=== PATIENT | female | born 1985 | race Caucasian/White ===

== ENCOUNTER 2021-01-28 14:18 | Outpatient (CLI) | payer OTHER, SELFPAY ==
--- NOTE | ~2021-01-28 | US_ITS ---
EXAMINATION: US axilla LT HISTORY: Unspecified lump in the axillary tail of the left breast TECHNIQUE: Limited ultrasound performed in the left axilla in the area of clinical concern FINDINGS: There is no evidence of focal abnormal cystic or solid mass in the vicinity of the palpable abnormality of concern. IMPRESSION: No specific sonographic correlate is identified for the reported palpable abnormality of concern. Fur ther evaluation at this time should be based on clinical assessment. Continued follow-up physical exa mination is recommended. BI-RADS Category 1: Negative Reviewed, dictated and finalized at location A. IMPRESSION: No specific sonographic correlate is identified for the reported palpable abnor mality of concern. Further evaluation at this time should be based on clinical assessment. Continued follow-up physical examination is recommended. BI-RADS Category 1: Negative
== END 2021-01-28 14:19 ==
PROVIDERS: PCP Family Medicine; Visit Provider Physician Assistant Medical
DX: N63.32 Unspecified lump in axillary tail of the left breast (principal)
CPT/HCPCS: 76882

== ENCOUNTER 2021-05-07 07:36 | Outpatient (CLI) | payer OTHER, SELFPAY ==
--- NOTE | ~2021-05-07 | MR_ITS ---
EXAMINATION: MR lumbar spine wo/w con DATE: 05/07/2021 09:24 INDICATION: Lumbar radiculopathy. TECHNIQUE: Magnetic resonance imaging (MRI) of the lumbar spine was performed without and with 14 mL MultiHance intravenous contrast. Sequences included sagittal T2-weighted FSE, sagittal T2-weighted FS FSE, and sagittal and axial T1-weighted FSE. Postcontrast sequences included axial T2-weighted FSE a nd axial and sagittal T1-weighted FS FSE. COMPARISON: None FINDINGS: There is 5 degrees dextrocurvature of thoracolumbar spine. Vertebral body heights and inter vertebral disc heights are normal. The distal spinal cord signal intensity is normal. The conus medul ayanna is at L1. 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 The following disc levels are specifically discussed: L1-L2: The disc does not extend beyond the endplate margin. There is no facet joint osteoarthritis. T here is no neural foraminal stenosis. There is no central canal stenosis. L2-L3: The disc does not extend beyond the endplate margin. There is mild bilateral facet joint osteo arthritis. There is no neural foraminal stenosis. There is no central canal stenosis. L3-L4: The disc does not extend beyond the endplate margin. There is no facet joint osteoarthritis. T here is no neural foraminal stenosis. There is no central canal stenosis. L4-L5: The disc does not extend beyond the endplate margin. There is mild bilateral facet joint osteo arthritis. There is no neural foraminal stenosis. There is no central canal stenosis. L5-S1: There is a central protrusion. There is mild bilateral facet joint osteoarthritis. There is mi ld left neural foraminal stenosis. There is mild central canal stenosis. IMPRESSION: 1. Mild lumbar spondylosis. Reviewed, dictated and finalized at location A. IMPRESSION: 1. Mild lumbar spondylosis.
[2021-05-07 08:41] LABS: Estimated Glomerular Filt Rate > 60
== END 2021-05-07 07:37 | disposition home or self-care (01) ==
PROVIDERS: PCP Family Medicine; Visit Provider Family Medicine
DX: M47.27 Other spondylosis with radiculopathy, lumbosacral region (principal); M48.07 Spinal stenosis, lumbosacral region
CPT/HCPCS: 72158; A9577

== ENCOUNTER 2021-07-27 08:40 | Outpatient (CLI) | payer OTHER, SELFPAY ==
--- NOTE | ~2021-07-27 | XR_ITS ---
EXAMINATION: XR sacroiliac joints min 3V INDICATION: Sacroiliitis not elsewhere specified TECHNIQUE: Three views of the sacroiliac joints are obtained. COMPARISON: None available FINDINGS: The sacroiliac joints are unremarkable without evidence of erosion or sclerosis. Bone align ment is normal. There is no fracture. IMPRESSION: 1. No acute osseous abnormality. Reviewed, dictated and finalized at location A.
--- NOTE | ~2021-07-27 | XR_ITS ---
EXAMINATION: XR hip BI 2V w AP pelvis DATE: 07/27/2021 09:03 INDICATION: Hip pain TECHNIQUE: AP view the pelvis and two views of each hip were obtained. COMPARISON: None. FINDINGS: Bone alignment is normal. There is no fracture. The soft tissues are unremarkable IMPRESSION: 1. No acute osseous abnormality. Reviewed, dictated and finalized at location A.
== END 2021-07-27 08:41 | disposition home or self-care (01) ==
LOC: ANHIMG 08:43
PROVIDERS: PCP Family Medicine; Visit Provider Physician Assistant Medical
DX: M25.551 Pain in right hip (principal); M25.552 Pain in left hip; M46.1 Sacroiliitis, not elsewhere classified
CPT/HCPCS: 72202; 73521

== ENCOUNTER → 2021-08-06 09:24 | Outpatient (CLI) | payer OTHER, SELFPAY ==
--- NOTE | ~2021-08-06 | US_ITS ---
EXAMINATION: US renal BI DATE: 08/06/2021 10:17 INDICATION: Renal cyst TECHNIQUE: Multiple ultrasound grayscale images of the kidneys were obtained. COMPARISON: None. FINDINGS: The right kidney measures 8.7 x 5.3 x 5.0 cm. The left kidney measures 10.0 x 5.4 x 5.7 cm. The kidne ys demonstrate normal echogenicity. 1.7 cm exophytic anechoic cyst at the medial left kidney. 8 mm ex ophytic hypoechoic lesion at the lower pole of the left kidney which is too small to definitively lata racterize. There is no hydronephrosis in either kidney. No stones identified. The bladder is normal. IMPRESSION: 1. 1.7 cm anechoic left renal cyst with second 8 mm hypoechoic lesion at the left kidney which could represent an additional cyst but which is too small to definitively characterize. Reviewed, dictated and finalized at location A. IMPRESSION: 1. 1.7 cm anechoic left renal cyst with second 8 mm hypoechoic lesion at the l eft kidney which could represent an additional cyst but which is too small to d efinitively characterize.
== END ==
PROVIDERS: PCP Family Medicine; Visit Provider Physician Assistant Medical
DX: N28.1 Cyst of kidney, acquired (principal); N28.9 Disorder of kidney and ureter, unspecified
CPT/HCPCS: 76775

== ENCOUNTER 2022-08-02 15:34 | Outpatient (CLI) | payer OTHER, SELFPAY ==
[2022-08-02 16:33] LABS: Free T4 Free Thyroxine 1.08 ng/mL (0.78-2.19)
[2022-08-02 16:39] LABS: Thyroid Stimulating Hormone 0.848 uIU/mL (0.465-4.680)
[2022-08-05 05:16] LABS: Thyroid Peroxidase Antibodies 1 IU/mL (<9)
[2022-08-06 08:40] LABS: Progesterone 0.2 ng/mL (***)
[2022-08-08 04:17] LABS: Estradiol, Ultrasensitive 2 pg/mL
== END 2022-08-02 15:35 | disposition home or self-care (01) ==
LOC: ANHLAB 15:40
PROVIDERS: PCP Family Medicine; Visit Provider Obstetrics & Gynecology
DX: R23.2 Flushing (principal)
CPT/HCPCS: 36415; 82670; 84144; 84439; 84443; 86376

== ENCOUNTER 2024-03-04 15:12 | Outpatient (CLI) | payer OTHER, SELFPAY ==
--- NOTE | ~2024-03-04 | MM_ITS ---
EXAMINATION: MM screening dayna BI w khushbu HISTORY: Screening mammogram TECHNIQUE: Craniocaudal and mediolateral oblique 3-D tomosynthesis images were obtained and synthetic 2-D images were generated. CAD analysis was submitted and interpreted. COMPARISON: 04/22/2019 complete right breast ultrasound BREAST PARENCHYMAL COMPOSITION: The breasts are heterogeneously dense, which may obscure small masses . FINDINGS: Suggestion of bilateral breast masses IMPRESSION: 1. Possible bilateral breast masses 2. Bilateral diagnostic mammography and bilateral breast ultrasound are recommended BI-RADS Category 0: Incomplete: Needs additional imaging evaluation. Reviewed, dictated and finalized at location A. IMPRESSION: 1. Possible bilateral breast masses 2. Bilateral diagnostic mammography and bilateral breast ultrasound are recomme nded BI-RADS Category 0: Incomplete: Needs additional imaging evaluation.
== END 2024-03-04 15:13 | disposition home or self-care (01) ==
PROVIDERS: PCP Family Medicine; Visit Provider Obstetrics & Gynecology
DX: Z12.31 Encounter for screening mammogram for malignant neoplasm of breast (principal); R92.8 Other abnormal and inconclusive findings on diagnostic imaging of breast
CPT/HCPCS: 77063; 77067

== ENCOUNTER 2024-03-18 09:00 | Outpatient (CLI) | payer OTHER, SELFPAY ==
--- NOTE | ~2024-03-18 | MMUS_ITS ---
EXAMINATION: MM diagnostic dayna BI w khushbu, US breast BI complete HISTORY: Possible bilateral breast masses reported on March 04, 2024 screening mammogram examination. Heterogeneously dense breasts. TECHNIQUE: Additional 3-D tomosynthesis images of both breasts were performed and synthetic 2-D image s were generated. CAD analysis was submitted and interpreted. High resolution complete bilateral [facility] ultrasound examination including all 4 quadrants and subareolar area of each breast was performed. COMPARISON: March 04, 2024 bilateral screening mammogram April 22, 2019 complete right breast ultrasound examination FINDINGS: MAMMOGRAPHIC FINDINGS: Possible approximately 14 mm circumscribed mass suggested in superolateral right subareolar area. No suspicious mass, architectural distortion, malignant calcification, skin thickening or retraction of either breast is noted otherwise. ULTRASOUND: Right breast: 11 x 20 mm well-circumscribed sonolucency consistent with simple cyst with through transmission poste rior enhancement. There is a contiguous 4.7 x 5 mm simple cyst. 11 x 9 x 10 mm cyst right subareolar benign-appearing complicated cyst with low intensity internal ec hoes, through-transmission and posterior enhancement. No suspicious mass or shadowing of the right breast is detected. Left breast: No suspicious mass or shadowing of the left breast is detected. IMPRESSION: 1. Benign right subareolar cysts; no mammographic or sonographic evidence of malignancy 2. Routine annual mammographic screening is recommended BI-RADS Category 2: Benign finding(s). Reviewed, dictated and finalized at location A. IMPRESSION: 1. Benign right subareolar cysts; no mammographic or sonographic evidence of ma lignancy 2. Routine annual mammographic screening is recommended BI-RADS Category 2: Benign finding(s).
== END 2024-03-18 09:30 | disposition home or self-care (01) ==
LOC: ANHIMG 03-19 08:46
PROVIDERS: PCP Family Medicine; Visit Provider Obstetrics & Gynecology
DX: R92.333 Mammographic heterogeneous density, bilateral breasts (principal); N60.01 Solitary cyst of right breast; R92.8 Other abnormal and inconclusive findings on diagnostic imaging of breast
CPT/HCPCS: 76641; 77062; 77066; G0279

== ENCOUNTER 2024-08-31 10:17 | Outpatient (CLI) | payer OTHER, SELFPAY ==
--- NOTE | ~2024-08-31 | US_ITS ---
EXAMINATION: US transvaginal DATE: 08/31/2024 10:49 INDICATION: Pelvic pain. TECHNIQUE: Multiple transvaginal sonographic images of the pelvis were obtained. COMPARISON: Ultrasound 11/01/2023 FINDINGS: The uterus measures 8.1 x 4.2 x 5.4 cm. There is no free fluid in the pelvis. The endometrial complex measures 6 mm in thickness. There is a 14 mm submucosal fibroid. The right ovary measures 3.7 x 2.7 x 3.3 cm. The left ovary measures 2.9 x 1.5 x 2.9 cm. There is normal vascular flow in the ovaries. IMPRESSION: 1. Uterine fibroid. Reviewed, dictated and finalized at location A. IMPRESSION: 1. Uterine fibroid.
== END 2024-08-31 10:18 | disposition home or self-care (01) ==
LOC: MICIMG 10:18
PROVIDERS: PCP Family Medicine; Visit Provider Obstetrics & Gynecology Gynecology
DX: D25.9 Leiomyoma of uterus, unspecified (principal)
CPT/HCPCS: 76830

== ENCOUNTER 2024-11-01 08:36 | Emergency (ER) | payer OTHER, SELFPAY ==
--- NOTE | ~2024-11-01 | XR_ITS ---
EXAMINATION: XR chest 2V DATE: 11/01/2024 09:13 INDICATION: Cough with back pain TECHNIQUE: PA and lateral views of the chest were obtained. COMPARISON: None FINDINGS: The lungs are clear with no focal airspace opacities, pulmonary edema, pleural effusion or pneumothor ax. The cardiomediastinal silhouette is normal. Moderate thoracic spondylosis with fusion across the anterior margin of the lower thoracic disc spaces. IMPRESSION: 1. No acute cardiopulmonary disease. Reviewed, dictated and finalized at location B. ICAL RN MANAGER
[2024-11-01 08:42] VITALS: BP 125/75; PULSE 94; RESP 16; TEMP 36.8; O2SAT 98
--- NOTE | 2024-11-01 08:51 | ED_ITS ---
HPI - URI/Sore Throat General Chief Complaint: Upper Respiratory Infection Stated Complaint: Cough/Chest Pain into Back/Leg Pain Time Seen by Provider: 11/01/24 08:52 Source: patient Mode of arrival: ambulatory Limitations: no limitations History of Present Illness HPI Narrative: 39 y/o female presented for c/o painful cough x5 days. States the cough is dry, and reports aches to left upper back and chest when coughing. Feels sob and chest tightness with exertion. Also reports pain in the legs. Denies wheezing, n/v/d/f/c. Taking Mucinex and ibuprofen without relief. Related Data Allergies Allergy/AdvReac Type Severity Reaction Status Date / Time meperidine Allergy Mild vomit Verified 11/01/24 09:02 erythromycin base Allergy Unknown unknown Verified 11/01/24 09:02 vilazodone AdvReac Intermediate Agitated Verified 11/01/24 09:02 venlafaxine (From Effexor) AdvReac Mild insomnia Verified 11/01/24 09:02 Review of Systems Review of Systems: CONSTITUTIONAL: reports body aches, Denies fever, chills, or sweats. EYES: Denies visual changes, redness, or discharge. ENT: Denies rhinorrhea, congestion, sore throat, or otalgia. CARDIOVASCULAR: Denies chest pain, palpitations, or edema. RESPIRATORY: Reports cough, sob, denies wheezing. GASTROINTESTINAL: Denies abdominal pain, nausea, vomiting, or diarrhea. SKIN: Denies rash MUSCULOSKELETAL: reports back pain, myalgia. NEUROLOGIC: Denies headache All systems reviewed & are unremarkable except as noted in HPI and below PMFSH Past Medical History Medical History GERD (gastroesophageal reflux disease) Obesity (BMI 30.0-34.9) Family history of heart disease in female family member before age 65 Renal cyst Left Myositis ossificans Rib injury COVID-19 Hematoma (~07/2020) Surgical History Surgical History History of colposcopy Colposcopy - TRUPTI II/III 2008 History of loop electrosurgical excision procedure (LEEP) 2008 Family History Family History Mother Acute myocardial infarction Other Heart disease Atrial fibrillation Depression Psychiatric problem Grandparent Diabetes mellitus Cerebrovascular accident Alzheimer disease Breast cancer Social History Social History Social History: Caffeine-daily Smoking status: Former smoker Smoking end date: 11/06/17 Alcohol intake: current Alcohol use details: rarely Substance use: never Substance use type: does not use Lack of Transportation: No Lack of Food: Never True Current Housing: I Have Housing Concerned About Future Housing: No Difficulty Paying Gas/Electric Bills: No Difficulty Paying for Meds: No Currently Unemployed: No Education: Associate Degree Difficulty w/ Childcare or Family Care: No Living arrangements: with family Occupation/Education: occupation Gender identity (if verbalized by the patient): Female Sexual Orientation (if Verbalized by the Patient): Straight or Heterosexual Comments At time of signature, I have reviewed and agree with nursing past medical, surgical, social and family history unless otherwise noted. Please see nursing chart for further information. There is no relevant family history pertinent to the presenting complaint Exam Narrative: GENERAL: mildly ill-appearing, in no acute distress. EYES: EOMI. No redness or drainage. Conjunctivae normal. ENT: Mucous membranes pink and moist. No rhinorrhea. TMs normal bilaterally. Throat normal. Uvula midline. NECK: Normal AROM. Supple. CHEST: No respiratory distress. Lungs clear to all espinosa. HEART: Regular rate and rhythm. No murmur appreciated. ABDOMEN: Soft, nontender, nondistended, normal active bowel sounds. EXTREMITIES: Normal range of motion. No edema. SKIN: Warm, dry, no rash. Capillary refill normal. Normal skin turgor. NEURO: Alert and oriented x3. Gait steady. PSYCH: Normal affect. Course Course Emergency Course: Patient is aware of diagnosis, understands and agrees to treatment plan. Anticipatory guidance given. Patient agrees to follow-up as directed and is aware of reasons to seek care at the emergency department. Portions of this record may have been created with voice recognition software Level of Care: Express Care Visit Vital Signs Vital signs: Vital Signs Temperature 98.3 F 11/01/24 08:42 Pulse Rate 94 11/01/24 08:42 Respiratory Rate 16 11/01/24 08:42 Blood Pressure 125/75 11/01/24 08:42 Pulse Oximetry 98 11/01/24 08:42 Oxygen Delivery Room Air 11/01/24 08:42 Temperature 98.3 F 11/01/24 08:42 Pulse Rate 94 11/01/24 08:42 Respiratory Rate 16 11/01/24 08:42 Blood Pressure 125/75 11/01/24 08:42 Pulse Oximetry 98 11/01/24 08:42 Oxygen Delivery Room Air 11/01/24 08:42 MDM - URI/Sore Throat MDM Narrative Medical decision making narrative: Discussed physical exam findings, negative flu, COVID, strep and chest x-ray results reviewed.. Advised supportive measures and signs/symptoms to go to the ER. Pt is appropriate for outpt treatment and f/u. Differential Diagnosis Differential diagnosis: Likely upper respiratory infection, sinusitis, viral infection, bronchitis, influenza and pharyngitis Lab Data Labs: Lab Results 11/01/24 Range/Units 09:06 POC Influenza A Ag Negative (Negative) POC Influenza B Ag Negative (Negative) POC SARS CoV-2 Ag Negative (Negative) POC Grp A Strep Screen Negative (Negative) Imaging Data Radiologist's impression: Patient: Patt Fitzgerald : 1985 MR#: [id number] Age: 39 Acct:[id number] Loc: [facility] ADM Date: 11/01/24Attending Dr: Ordering Physician: Brianda Hendricks APRN Date of Service: 11/01/24 Procedure(s): XR chest 2V Accession Number(s): [id number] cc: Brianda Hendricks APRN; Meir Fallon MD~ EXAMINATION: XR chest 2V DATE: 11/01/2024 09:13 INDICATION: Cough with back pain TECHNIQUE: PA and lateral views of the chest were obtained. COMPARISON: None FINDINGS: The lungs are clear with no focal airspace opacities, pulmonary edema, pleural effusion or pneumothorax. The cardiomediastinal silhouette is normal. Moderate thoracic spondylosis with fusion across the anterior margin of the lower thoracic disc spaces. IMPRESSION: 1. No acute cardiopulmonary disease. Discharge Plan Discharge Clinical Impression: Bronchitis Patient Disposition: Home, Self-Care Condition: Stable Instructions: Antibiotic Form, Acute Bronchitis (ED) Additional Instructions: Flu and COVID negative. Rapid strep swab was negative today You will be notified in a few days if the culture comes back positive for strep, and appropriate antibiotics will be called in at that time. if symptoms are due to a viral illness, it is not treated with antibiotics. Viral symptoms can be present for up to 10-14 days. Recommendations: Cough syrup may cause drowsiness; avoid driving or take it at night time. Tylenol every 8 hours as needed for pain/fever Flonase spray and Zyrtec for sinus congestion Soft foods, cool liquids, warm tea. Gargle with warm saltwater twice a day. Chloraseptic spray and throat lozenges. Rest and stay hydrated. --Follow up with your PCP --Go to the ER immediately if you cannot swallow your saliva, trouble breathing/wheezing, throat swelling, pain is persistent and severe Patient Language: Malaysian Prescriptions: New codeine-guaifenesin [Guaifenesin AC] 10-100 mg/5 mL liquid 10 ml PO Q8H PRN (Reason: cough) Qty: 120 0RF methylprednisolone [Medrol (David)] 4 mg tablets,dose pack See Rx Instructions .ROUTE .COMPLEX Qty: 21 0RF Rx Instructions: orally per package directions No Action conjugated estrogens 0.625 mg/gram cream 0.625 mg vaginal 2XW Qty: 30 2RF lidocaine (PF) 10 mg/mL (1 %) solution 10 mg intra-articular ONCE Qty: 4 0RF medroxyprogesterone [Provera] 10 mg tablet 10 mg PO DAILY Qty: 10 4RF acyclovir 400 mg tablet 400 mg PO DAILY Qty: 90 2RF Follow-up/Referrals: Meir Fallon MD [Primary Care Provider] - Time of Disposition: 09:41
[2024-11-01 09:08] LABS: EDCOVIDSCREEN Negative (Negative); EDINFLUASCREEN Negative (Negative); EDINFLUBSCREEN Negative (Negative); EDSTREPNEGPOS1 Negative (Negative)
--- OUTSIDE RECORDS SUMMARY | 2024-11-08 19:24 | XMS_ITS | Encounter Summary ---
Author Organization [facility] Healthcare Address [address] [place] [address] Care Team Providers Care Nickel Operator Name Role Phone Meir Fallon MD Primary Care Provider [phone] Encounter Details Date Type Department Care Team (Late st Contact Info) Description 03/19/[address] 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 Also no structual damage and no surgery needed. Ice, elevation, rest and should get better with time. She can try PT if she would like. I let patient know results. * Telephone Encounter - Danii Burton PA - 03/19/2024 12:[address] Vuong, you recently saw this patient and ordered the MRI. * Telephone Encounter - Patrickmacy Marla - 03/19/2024 11:35 AM CDT MRI DISC UPLOADED. Please reach out to [facility] to collect report and call patient with results. Call back # [phone] documented in this encounter Plan of Treatment Not on file documented as of this encounter Visit Diagnoses Not on filedocumented in this encounter Care Teams Nickel Operator Relationship Specialty Start Date End Date Meir Fallon MD PCP - General 07/10/20 documented as of this encounter
--- OUTSIDE RECORDS SUMMARY | 2024-11-08 19:24 | XMS_ITS | Referral Summary ---
Author Organization [facility] [employer] Address [address] [place] [address] Care Team Providers Care Wrapper Stitcher Name Role Phone Unavailable Primary Care Provider Unavailabl e Source Comments [facility],non-owned Affiliates and Associated Physician Practices is amultiple site organization consisting of ambulatory clinics and hospital sitesin [place]. This disclosure is being madepursuant to the Care Everywhere program and may not contain all information available regarding this patient. Last updated 18.[facility] [employer] Allergies Active Allergy Reactions Criticality Noted Date Comments Amoxicillin 09/23/2016 Medications * Be aware that medications may not be up to date on this document. Alwaysverify current medications with the patient. Medication Sig Dispensed Refills Start Date End Date Status norgestimate-ethinyl estradiol (SPRINTEC 28) 0.25-35 MG-MCG tablet Take 1 Tab by mouth once daily Active albuterol HFA (PROVENTIL;VENTOLIN;P ROAIR) 108 (90 BASE) MCG/ACT inhalerIndications:Ab normal chest sounds Inhale 2 Puffs by mouth every 6 hours as needed 1 Inhaler 09/23/2016 Active benzonatate (TESSALON) 200 MG capsuleIndications:Ab normal chest sounds Take 1 Cap by mouth 3 times daily as needed for Cough 30 Cap 09/23/2016 Active Social History Tobacco Use Types Packs/Day Years Used Date Smoking Tobacco: Every Day Cigarettes Sex and Gender Information Value Date Recorded Sex Assigned at Not on file Gender Identity Not on file Sexual Orientation Not on file Last Filed Vital Signs Vital Sign Reading Time Taken Comments Blood Pressure 118/75 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
--- OUTSIDE RECORDS SUMMARY | 2024-11-08 19:24 | XMS_ITS | Clinical Summary ---
Author Organization [facility] [employer] Address [address] [place] [address] Care Team Providers Care Loan Processor Name Role Phone Unavailable Primary Care Provider Unavailabl e Source Comments [facility],non-owned Affiliates and Associated Physician Practices is amultiple site organization consisting of ambulatory clinics and hospital sitesin [place], [place], [place] and [place]. This disclosure is being madepursuant to the Care Everywhere program and may not contain all information available regarding this patient. 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 Pulse 88 10/02/2016 3:32 PM SENIOR 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 Temperature 36.8 ??C (98.2 ??F) 10/02/2016 3:32 PM CS T Respiratory Rate 16 10/02/2016 3:32 PM SENIOR 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 Oxygen Saturation - - Inhaled Oxygen Concentration - - Weight 61.2 kg (135 lb) 10/02/2016 3:32 PM SENIOR 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 Height 162.6 cm (5' 4 ) 10/02/2016 3:32 PM SENIOR 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 Body Mass Index 23.17 10/02/2016 3:32 PM 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 Plan of Treatment Health Maintenance Due Date Last Done Comments LIPID TESTING 1985 MAMMOGRAM 1985 PAP SMEAR 1985 PNEUMOCOCCAL VACCINE (1 of 2 - PCV) 02/10/1990 HIV SCREENING 02/10/1999 HEPATITIS C SCREENING 02/06/2002 DTAP/TDAP/TD VACCINES (1 - Tdap) 02/10/2003 HEPATITIS B VACCINE (1 of 3 - 19+ 3-dose series) 02/10/2003 DEPRESSION SCREENING 11/06/2023 COVID-19 VACCINE (1 - 2023-2 5 season) 2024 INFLUENZA VACCINE (#1) 2024 ZOSTER VACCINE (1 of 2) 02/10/2034 HIB VACCINE Aged Out No longer eligi ble based on patient's age to complete this topic HPV VACCINE Aged Out No longer eligi ble based on patient's age to complete this topic MENINGOCOCCAL VACCINE Aged Out No juan francisco stefan eligible based on patient's age to complete this topic
--- OUTSIDE RECORDS SUMMARY | 2024-11-08 19:24 | XMS_ITS | Encounter Summary ---
Author Organization [facility] Address [address] [place] [address] Care Team Providers Care Senior Database Programmer Name Role Phone Unavailable Primary Care Provider Unavailabl e Reason for Visit * Reason Comments Congestion Headache Encounter Details Date Type Department Care Team (Late st Contact Info) Description 09/23/2016 6:00 PM SHIFT BOSS Office Visit [facility] AT [address] [address] Provider, Rain Exp Nameohi Acute bronchitis, unspecified organism (Primary Dx); Abnormal chest sounds; Acute non-recurrent maxillary sinusitis Social History Tobacco Use Types Packs/Day Years Used Date Smoking Tobacco: Every Day Cigarettes Sex and Gender Information Value Date Recorded Sex Assigned at Not on file Gender Identity Not on file Sexual Orientation Not on file documented as of this encounter Last Filed Vital Signs Vital Sign Reading Time Taken Comments Blood Pressure 106/68 09/23/2016 2:39 PM SHIFT BOSS Pulse 91 09/23/2016 2:39 PM SHIFT BOSS Temperature 37.2 ??C (98.9 ??F) 09/23/2016 2:39 PM CS T Respiratory Rate 18 09/23/2016 2:39 PM SHIFT BOSS Oxygen Saturation - - Inhaled Oxygen Concentration - - Weight 61.2 kg (135 lb) 09/23/2016 2:39 PM SHIFT BOSS Height 162.6 cm (5' 4 ) 09/23/2016 2:39 PM SHIFT BOSS Body Mass Index 23.17 09/23/2016 2:39 PM SHIFT BOSS documented in this encounter Patient Instructions * Patient Instructions* Bessie Glover APRN-CNP - 09/23/2016 2:53 PM SHIFT BOSS Images from the original note were not included. Acute Bronchitis WHAT YOU SHOULD KNOW: Acute bronchitis is swelling and irritation in the air passages of your lungs. This irritation may cause you to cough or have other breathing problems. Acute bronchitis often starts because of another viral illness, such as a cold or the flu. The illness spreads from your nose and throat to your windpipe and airways. Bronchitis is often called a chest cold. Acute bronchitis lasts about 2 weeks and is usually not a serious illness. AFTER YOU LEAVE: Medicines: ?? Ibuprofen or acetaminophen: These medicines help lower a fever. They are available without a doctor's order. Ask your healthcare provider which medicine is right for you. Ask how much to take and how often to take it. Follow directions. These medicines can cause stomach bleeding if not taken correctly. Ibuprofen can cause kidney damage. Do not take ibuprofen if you have kidney disease, an ulcer, or allergies to aspirin. Acetaminophen can cause liver damage. Do not drink alcohol if you take acetaminophen. ?? Cough medicine: This medicine helps loosen mucus in your lungs and make it easier to cough up. This can help you breathe easier. ?? Inhalers: You may need one or more inhalers to help you breathe easier and cough less. An inhaler gives your medicine in a mist form so that you can breathe it into your lungs. Ask your healthcare provider to show you how to use your inhaler correctly. ?? Steroid medicine: Steroid medicine helps open your air passages so you can breathe easier. ?? Take your medicine as directed. Call your healthcare provider if you think your medicine is not helping or if you have side effects. Tell him if you are allergic to any medicine. Keep a list of the medicines, vitamins, and herbs you take. Include the amounts, and when and why you take them. Bring the list or the pill bottles to follow-up visits. Carry your medicine list with you in case of an emergency. How to use an inhaler: ?? Shake the inhaler well to make sure you get the correct amount of medicine per puff. Remove the cover from your inhaler's mouthpiece. If you are using a spacer, connect your inhaler to the flat end of the spacer. ?? Exhale as much air from your lungs as you can. Put the mouthpiece in your mouth past your front teeth and rest it on the top of your tongue. Do not block the mouthpiece opening with your tongue. ?? Breathe in through your mouth at a slow and steady rate. As you do this, press the inhaler to release the puff of medicine. Finish breathing in slowly and deeply as you inhale the medicine. When your lungs are full, hold your breath for 10 seconds. Then breathe out slowly through puckered lips or through your nose. ?? If you need to take more puffs, wait at least 1 minute between each puff. ?? Rinse your mouth with water after you use the inhaler. This may keep you from getting a mouth infection or irritation. ?? Follow the instructions that come with your inhaler to clean it. You should clean your inhaler at least once a week. Ways to care for yourself: ?? Avoid alcohol: Alcohol dulls your urge to cough and sneeze. When you have bronchitis, you need to be able to cough and sneeze to clear your air passages. Alcohol also causes your body to lose fluid. This can make the mucus in your lungs thicker and harder to cough up. ?? Avoid irritants in the air: Do not smoke or allow others to smoke around you. Avoid chemicals, fumes, and dust. Wear a face mask if you must work around dust or fumes. Stay inside on days when airpollution levels are high. If you have allergies, stay inside when pollen counts are high. Avoid aerosol products. This includes spray-on deodorant, bug spray, and hair spray. ?? Drink more liquids: Most people should drink at least 8 eight-ounce cups of water a day. You mayneed to drink more liquids when you have acute bronchitis. Liquids help keep your air passages moist and help you cough up mucus. ?? Get more rest: You may feel like resting more. Slowly start to do more each day. Rest when you feel it is needed. ?? Eat healthy foods: Eat a variety healthy foods every day. Your diet should include fruits, vegetables, breads, and protein (such as chicken, fish, and beans). Dairy products (such as milk, cheese,and ice cream) can sometimes increase the amount of mucus your body makes. Ask if you should decrease your intake of dairy products. ?? Use a humidifier: Use a cool mist humidifier to increase air moisture in your home. This may make it easier for you to breathe and help decrease your cough. Decrease your risk of acute bronchitis: ?? Get the vaccinations you need: Ask your healthcare provider if you should get vaccinated againstthe flu or pneumonia. ?? Avoid things that may irritate your lungs: Stay inside or cover your mouth and nose with a scarfwhen you are outside during cold weather. You should also stay inside on days when air pollution levels are high. If you have allergies, stay inside when pollen counts are high. Avoid using aerosol products in your home. This includes spray-on deodorant, bug spray, and hair spray. ?? Avoid the spread of germs: ?? Wash your hands often with soap and water. Carry germ-killing gel with you. You can use the gel to clean your hands when there is no soap and water available. ?? Do not touch your eyes, nose, or mouth unless you have washed your hands first. ?? Always cover your mouth when you cough. Cough into a tissue or your shirtsleeve so you do not spread germs from your hands. ?? Try to avoid people who have a cold or the flu. If you are sick, stay away from others as much as possible. Follow up with your healthcare provider as directed: Write down questions you have so you will remember to ask them during your follow-up visits. Contact your healthcare provider if: ?? You have a fever. ?? Your skin becomes itchy or you have a rash after you take your medicine. ?? Your breathing problems do not go away or get worse. ?? Your cough does not get better with treatment. ?? You cough up blood. ?? You have questions or concerns about your condition or care. Seek care immediately or call 911 if: ?? You faint. ?? Your lips or fingernails turn blue. ?? You feel like you are not getting enough air when you breathe. ?? You have swelling of your lips, tongue, or throat that makes it hard to breathe or swallow. ?? 2015 [employer]. Information is for End User's use only and may not be sold, redistributed or otherwise used for commercial purposes. All illustrations and images included in CareNotes?? are the copyrighted property of [employer] or [employer]. The above information is an unit aide tech only. It is not intended as medical advice for individual conditions or treatments. Talk to your doctor, nurse or pharmacist before following any medical regimen to see if it is safe and effective for you. T BOSS documented in this encounter Progress Notes * Bessie Glover APRN-CNP - 09/23/2016 2:40 PM CST [facility] Chief Complaint Patient presents with ??? Congestion ??? Headache SUBJECTIVE: General The history is provided by the patient. This is a new problem. The current episode started more than 1 week ago. The problem occurs constantly. Pertinent negatives include no shortness of breath. Thesymptoms are aggravated by coughing. Treatments tried: mucinex, claritin and flonase. above symptoms x 1 week No past medical history on file. No current outpatient prescriptions on file prior to visit. No current facility-administered medications on file prior to visit. No past surgical history on file. History Social History ??? Marital status: Spouse name: N/A ??? Number of children: N/A ??? Years of education: N/A Occupational History ??? Not on file. Social History Main Topics ??? Smoking status: Not on file ??? Smokeless tobacco: Not on file ??? Alcohol use: Not on file ??? Drug use: Not on file ??? Sexual activity: Not on file Other Topics Concern ??? Not on file Social History Narrative No family history on file. No current outpatient prescriptions on file. No current facility-administered medications for this visit. Allergies not on file REVIEW OF SYSTEMS: Review of Systems Constitutional: Negative for chills and fever. Aches HENT: Positive for congestion and ear pain. Negative for sore throat. Bilateral ear pressure, PND Respiratory: Positive for cough and wheezing. Negative for shortness of breath. Gastrointestinal: Positive for nausea. Negative for diarrhea and vomiting. OBJECTIVE: General appearance: alert, well appearing, and in no distress. There were no vitals taken for this visit. Physical Exam Constitutional: She is oriented to person, place, and time and well-developed, well-nourished, and in no distress. HENT: Head: Normocephalic and atraumatic. maxillary sinus tenderness Cardiovascular: Normal rate and regular rhythm. Pulmonary/Chest: She has wheezes. Scattered rhonchi Neurological: She is alert and oriented to person, place, and time. Vitals reviewed. ASSESSMENT: No results found for this visit on 09/23/16. No diagnosis found. PLAN: Use Flonase per package instructions, Saline nasal mist to prevent nasal drying Tylenol or Motrin as needed Claritin or Zyrtec per package instructions Cool Mist humidifier as needed If no improvement in 48-72 hours follow up with PCP or return to clinic T BOSS documented in this encounter Plan of Treatment Not on file documented as of this encounter Visit Diagnoses Diagnosis Acute bronchitis, unspecified organism- Primary Abnormal chest sounds Acute non-recurrent maxillary sinusitis documented in this encounter
--- OUTSIDE RECORDS SUMMARY | 2024-11-08 19:24 | XMS_ITS | Encounter Summary ---
Author Organization [facility] Healthcare Address [address] [place] [address] Care Team Providers Care Claim Approver Name Role Phone Meir Fallon MD Primary Care Provider [phone] Reason for Visit * Diagnostic Imaging (Routine) - Closed Specialty Diagnoses / Procedures Referred By Contac t Referred To Contact Diagnoses Right knee pain, unspecified chronicity Procedures XR Pelvis 1 or 2 Views Joe Vuong MD [address] [place] [address] [address] [address] Phone: tel: Referral ID Status Reason Start Date Expiration Date Visits Re quested Visits Authorized [id number] Closed 03/05/2024 04/04/2025 1 1 Encounter Details Date Type Department Care Team (Latest Contact Info) Description 03/05/2024 7:38 AM CDT - 03/05/2024 11:59 PM CDT Hospital Encounter [facility] [address] [place] [address] [address] [address] Discharge Disposition: Discharge to home or self care Social History Tobacco Use Types Packs/Day Years Used Date Smoking Tobacco: Former Cigarettes 0.5 10 0 11/13/2008 - 11/13/2018 Smokeless Tobacco: Never Alcohol Use Standard Drinks/Week Comments Yes 0 (1 standard drink = 0.6 oz pur e alcohol) Comments No Sex and Gender Information Value Date Recorded Sex Assigned at Not on file 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 Gender Identity Not on file Sexual Orientation Not on file documented as of this encounter Medications at Time of Discharge famotidine (PEPCID) 40 mg tablet Take 1 tablet (40 mg total) by mouth daily 05/07/2021 naproxen (NAPROSYN) 500 mg tabletIndications :Strain of right trapezius muscle, initial encounter Take 1 tablet (500 mg total) by mouth 2 (two) times a day with meals 30 tablet 03/12/2021 norgestimate-ethi nyl estradioL (Tri-Sprintec, 28,) 0.18/0.215/0.25 mg-35 mcg (28) per tablet Tri-Sprintec (28) 0.18 mg(7)/0.215 mg(7)/0.25 mg(7)-35 mcg tablet valACYclovir (VALTREX) 500 mg tablet Take 500 mg by mouth daily 04/28/2020 documented as of this encounter Discharge Disposition Disposition Code Departure Means Destination Discharge to home or self care documented in this encounter Plan of Treatment Not on file documented as of this encounter Procedures Procedure Name Priority Date/Time Associated Diagnosis Comments XR PELVIS 1 OR 2 VIEWS Schedule Routine, Read Routine (OP Routine) 03/05/2024 8:44 AM CDT Right knee pain, unspecified chronicity documented in this encounter Results * XR Pelvis 1 or 2 Views (03/05/2024 8:44 AM CDT) Anatomical Region Laterality Modality Body, Pelvis N/A Digital Radiogra phy Narrative 03/05/2024 10:05 AM CDT Normal AP pelvis no obvious bony abnormalities noted Joe Vuong MD IMG XR PROCEDURES Final Result documented in this encounter Visit Diagnoses Not on filedocumented in this encounter Care Teams Claim Approver Relationship Specialty Start Date End Date Meir Fallon MD PCP - General 07/10/20 documented as of this encounter
--- OUTSIDE RECORDS SUMMARY | 2024-11-08 19:24 | XMS_ITS | Encounter Summary ---
Author Organization [facility] Healthcare Address [address] [place] [address] Care Team Providers Care Camp Counselor Name Role Phone Meir Fallon MD Primary Care Provider [phone] [phone] Reason for Referral * MRI/CAT/PET Scan (Routine) - Closed Specialty Diagnoses / Procedures Referred By Contac t Referred To Contact Diagnoses Right knee pain, unspecified chronicity Procedures MRI Knee Right WO Contrast Joe Vuong MD [address] [place] [address] [address], [place] [address] Phone: tel: External Order Referral ID Status Reason Start Date Expiration Date Visits Re quested Visits Authorized [id number] Closed 03/05/2024 04/04/2025 1 1 Reason for Visit * Reason Comments Pain Encounter Details Date Type Department Care Team (Late st Contact Info) Description 03/05/2024 9:00 AM CDT Office Visit [facility] Orth[facility] Sports Medicine [address] [place] [id number] Joe Vuong MD [address] [place] [address] [address] [place] [address] Right knee pain, unspecified chronicity (Primary Dx); Internal derangement of knee, acute, right; Complex tear of lateral meniscus of right knee as current injury, initial encounter Social History Tobacco Use Types Packs/Day Years Used Date Smoking Tobacco: Former Cigarettes 0.5 10 0 11/13/2008 - 11/13/2018 Smokeless Tobacco: Never Alcohol Use Standard Drinks/Week Comments Yes 0 (1 standard drink = 0.6 oz pur e alcohol) Comments No Sex and Gender Information Value Date Recorded Sex Assigned at Not on file 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 Gender Identity Not on file Sexual Orientation Not on file documented as of this encounter Last Filed Vital Signs Vital Sign Reading Time Taken Comments Blood Pressure 137/92 03/05/2024 8:41 AM CDT Pulse 92 03/05/2024 8:41 AM CDT Temperature - - Respiratory Rate - - Oxygen Saturation - - Inhaled Oxygen Concentration - - Weight 69.9 kg (154 lb) 03/05/2024 8:41 AM CDT Height 162.6 cm (5' 4 ) 03/05/2024 8:41 AM CDT Body Mass Index 26.43 03/05/2024 8:41 AM CDT documented in this encounter Progress Notes * Joe Vuong MD - 03/05/2024 9:00 AM CDT NEW PATIENT VISIT Subjective CHIEF COMPLAINT She had concerns including Pain of the Right Knee. HISTORY OF PRESENT ILLINESS 39-year-old female with 2 weeks of right knee pain and swelling following a twisting injury. She has iced and elevated along with anti-inflammatories and activity modification with no relief. She hasmechanical symptoms including catching and locking and pain radiating to the back of her knee. Pain Assessment Pain Assessment: 0-10 Pain Score: 8 PAST MEDICAL HISTORY She has a past medical history of HSV-2 infection. PAST SURGICAL HISTORY She has a past surgical history that includes Cervix surgery (2006). MEDICATIONS She has a current medication list which includes the following prescription(s): famotidine, norgestimate-ethinyl estradiol, naproxen, and valacyclovir. ALLERGIES She is allergic to erythromycin base and meperidine. SOCIAL HISTORY She reports that she quit smoking about 5 years ago. She started smoking about 15 years ago. She has a 5 pack-year smoking history. She has never used smokeless tobacco. She reports that she does notuse drugs. No alcohol history on file. FAMILY HISTORY Family History Problem Relation Age of Onset Heart disease Mother Cancer Maternal Grandmother Diabetes Maternal Grandfather Heart disease Maternal Grandfather Stroke Maternal Grandfather REVIEW OF SYSTEMS Review of Systems Constitutional: Negative for appetite change and fever. HENT: Negative for drooling, facial swelling and voice change. Eyes: Negative for discharge. Respiratory: Negative for apnea and wheezing. Cardiovascular: Negative for chest pain and palpitations. Gastrointestinal: Negative for abdominal distention and abdominal pain. Endocrine: Negative for polydipsia. Genitourinary: Negative for flank pain. Musculoskeletal: Positive for arthralgias and myalgias. Skin: Negative for color change and rash. Neurological: Negative for speech difficulty. Hematological: Does not bruise/bleed easily. Psychiatric/Behavioral: Negative for hallucinations. Objective PHYSICAL EXAM BP 137/92 Pulse 92 Ht 162.6 cm (5' 4 ) Wt 69.9 kg (154 lb) BMI 26.43 kg/m?? Right knee Inspection Erythema: absent Cellulitis: absent Swelling: mild Surgical scar/wound: absent. Skin temperature: normal Alignment: neutral Gait: antalgic Palpation Tenderness: present. The tenderness is located in the lateral joint line. Patellar tracking: normal Crepitus: negative Patella grind: negative Subluxation: negative Range of motion The patient has reduced range of motion of the right knee. The patient has pain with range of motion of the right knee. Extensor lag: no. Stability AP stability: stable ML stability: stable Varus stress at 0 degrees: stable Valgus stress at 0 degrees: stable Varus stress at 30 degrees: stable Valgus stress at 30 degrees: stable Pivot shift: negative Shyla: negative Anterior drawer: negative Posterior drawer: negative Strength The patient has 5/5 strength thoughout right knee. Neurovascular The patient has normal vascular on the right side of their body. The patient has normal sensation on the right side of their body. Special tests Neida: medial postive Neida: lateral negative Patellar apprehension: negative Left knee Palpation Patellar tracking: normal Crepitus: negative Patella grind: negative Subluxation: negative Special tests Neida: medial negative Neida: lateral negative REVIEW OF X-RAYS/STUDIES/LABS XR Knee Right 4 or More Views Normal knee x-rays with early mild degenerative change XR Pelvis 1 or 2 Views Normal AP pelvis no obvious bony abnormalities noted Assessment/Plan Patt was seen today for pain. Diagnoses and all orders for this visit: Right knee pain, unspecified chronicity - MRI Knee Right WO Contrast; Future Internal derangement of knee, acute, right Complex tear of lateral meniscus of right knee as current injury, initial encounter Plan We are going to order an MRI of her right knee to assess for suspected right knee lateral meniscus tear which may be unstable and require surgery given the severity of her symptoms. I am going to call her with the results of the MRI to discuss options for treatment. Joe Vuong MD documented in this encounter Plan of Treatment Scheduled Orders Name Type Priority Associated Diagnoses Orde r Schedule MRI Knee Right WO Contrast Imaging Schedule Routine, Read Routine (OP Routine) Right knee pain, unspecified chronicity Expected: 03/05/2024, Expires: 03/05/2025 documented as of this encounter Visit Diagnoses Diagnosis Right knee pain, unspecified chronicity- Primary Internal derangement of knee, acute, right Complex tear of lateral meniscus of right knee as current injury, initial encounter documented in this encounter Care Teams Camp Counselor Relationship Specialty Start Date End Date Meir Fallon MD PCP - General 07/10/20 documented as of this encounter
--- OUTSIDE RECORDS SUMMARY | 2024-11-08 19:24 | XMS_ITS | Encounter Summary ---
Author Organization [facility] Healthcare Address [address] [place] [address] Care Team Providers Care Polymerization Helper Name Role Phone Meir Fallon MD Primary Care Provider [phone] [phone] Encounter Details Date Type Department Care Team (Latest Contact Info) Description 03/05/2024 7:38 AM CDT - 03/05/2024 11:59 PM CDT Hospital Encounter [facility] Medical Group Orthopedics and Sports Medicine [address] [place] [address] [address], [place] [address] Discharge Disposition: Discharge to home [...] on file 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 Gender Identity Not on file Sexual Orientation [...] Name Priority Date/Time Associated Diagnosis Comments XR KNEE RIGHT 4 OR MORE VIEWS Schedule Routine, Read Routine (OP Routine) 03/05/2024 8:46 AM CDT Right knee pain, unspecified chronicity documented in this encounter Results * XR Knee Right 4 or More Views (03/05/2024 8:46 AM CDT) Anatomical Region Laterality Modality Lower Extremities, Knee Right Digital Radiography Narrative 03/05/2024 10:05 AM CDT Normal knee x-rays with early mild degenerative change Joe Vuong MD IMG XR PROCEDURES Final Result documented in this encounter Visit Diagnoses Not on filedocumented in this encounter Care Teams Polymerization Helper Relationship Specialty Start Date End Date Meir Fallon MD PCP - General 07/10/20 documented as of this encounter
--- OUTSIDE RECORDS SUMMARY | 2024-11-08 19:24 | XMS_ITS | Encounter Summary ---
Author Organization [facility] Address [address] [place] [address] Care Team Providers Care Senior Analyst Name Role Phone Unavailable Primary Care Provider Unavailabl e Reason for Visit * Reason Comments Cough Encounter Details Date Type Department Care Team (Late st Contact Info) Description 10/02/2016 2:40 PM MEDICAL DIRECTOR OCCUPATIONAL HEALTH Office Visit [facility] [address] [id number] Provider, Rain Exp Namenji Acute bronchitis, unspecified organism (Primary Dx); Other specified symptoms and signs involving the circulatory and respiratory systems Social History Tobacco Use Types Packs/Day Years Used Date Smoking Tobacco: Every Day Cigarettes Sex and Gender Information Value Date Recorded Sex Assigned at Not on file Gender Identity Not on file Sexual Orientation Not on file documented as of this encounter Last Filed Vital Signs Vital Sign Reading Time Taken Comments Blood Pressure 118/75 10/02/2016 3:32 PM MEDICAL DIRECTOR OCCUPATIONAL HEALTH Pulse 88 10/02/2016 3:32 PM MEDICAL DIRECTOR OCCUPATIONAL HEALTH Temperature 36.8 ??C (98.2 ??F) 10/02/2016 3:32 PM CS T Respiratory Rate 16 10/02/2016 3:32 PM MEDICAL DIRECTOR OCCUPATIONAL HEALTH Oxygen Saturation - - Inhaled Oxygen Concentration - - Weight 61.2 kg (135 lb) 10/02/2016 3:32 PM MEDICAL DIRECTOR OCCUPATIONAL HEALTH Height 162.6 cm (5' 4 ) 10/02/2016 3:32 PM MEDICAL DIRECTOR OCCUPATIONAL HEALTH Body Mass Index 23.17 10/02/2016 3:32 PM MEDICAL DIRECTOR OCCUPATIONAL HEALTH documented in this encounter Patient Instructions * Patient Instructions* Kimberly Rowan APRN-CNP - 10/02/2016 3:32 PM MEDICAL DIRECTOR OCCUPATIONAL HEALTH Presents today for follow up for coughing, wheezing symptoms. Treated for similar symptoms on 09/22with Z-andree, Prednisone and Albuterol; pt finished medications as prescribed but symptoms have not improved. Pt is currently a 1/2 ppd smoker but states has not smoked for approximately 1 week. On physical exam, LS diminished to LLF/RLF with insp wheezes/rhonchi to RMF/LMF. Recommend that pt seek treatment at ER for further evaluation. CAL DIRECTOR OCCUPATIONAL HEALTH documented in this encounter Progress Notes * Kimberly Rowan APRN-CNP - 10/02/2016 3:26 PM CST [facility] Chief Complaint Patient presents with ??? Cough SUBJECTIVE: HPI Comments: Presents for productive coughing, wheezing, body aches and sinus pressure. Pt was here on 09/23 and put on Z-andree, Tessalon Perles and inhaler; states finished it but is still having symptoms. States is still taking Tessalon Perles and inhaler but they are helping minimally. +smoker. General The history is provided by the patient. The current episode started more than 1 week ago. The problem occurs daily. The problem has been gradually worsening. The symptoms are aggravated by smoking and coughing. Treatments tried: Flonase. The treatment provided no relief. No past medical history on file. Current Outpatient Prescriptions on File Prior to Visit Medication Sig Dispense Refill ??? norgestimate-ethinyl estradiol (SPRINTEC 28) 0.25-35 MG-MCG tablet Take 1 Tab by mouth once daily ??? albuterol HFA (PROVENTIL;VENTOLIN;PROAIR) 108 (90 BASE) MCG/ACT inhaler Inhale 2 Puffs by mouthevery 6 hours as needed 1 Inhaler 0 ??? benzonatate (TESSALON) 200 MG capsule Take 1 Cap by mouth 3 times daily as needed for Cough 30 Cap 0 No current facility-administered medications on file prior to visit. No past surgical history on file. History Social History ??? Marital status: Spouse name: N/A ??? Number of children: N/A ??? Years of education: N/A Occupational History ??? Not on file. Social History Main Topics ??? Smoking status: Current Every Day Smoker Packs/day: 0.50 ??? Smokeless tobacco: Not on file ??? Alcohol use: Not on file ??? Drug use: Not on file ??? Sexual activity: Not on file Other Topics Concern ??? Not on file Social History Narrative No family history on file. Current Outpatient Prescriptions Medication Sig Dispense Refill ??? norgestimate-ethinyl estradiol (SPRINTEC 28) 0.25-35 MG-MCG tablet Take 1 Tab by mouth once daily ??? albuterol HFA (PROVENTIL;VENTOLIN;PROAIR) 108 (90 BASE) MCG/ACT inhaler Inhale 2 Puffs by mouthevery 6 hours as needed 1 Inhaler 0 ??? benzonatate (TESSALON) 200 MG capsule Take 1 Cap by mouth 3 times daily as needed for Cough 30 Cap 0 No current facility-administered medications for this visit. Allergies Allergen Reactions ??? Amoxicillin REVIEW OF SYSTEMS: Review of Systems Constitutional: Positive for chills and malaise/fatigue. HENT: Positive for congestion. Respiratory: Positive for cough. All other systems reviewed and are negative. OBJECTIVE: General appearance: alert, well appearing, and in no distress. BP 118/75 Pulse 88 Temp 98.2 ??F (Oral) Resp 16 Wt 61.2 kg (135 lb) BMI 23.17 kg/m2 Physical Exam Constitutional: She is well-developed, well-nourished, and in no distress. HENT: Head: Normocephalic and atraumatic. Right Ear: External ear normal. Left Ear: External ear normal. Nose: Nose normal. Mouth/Throat: Oropharynx is clear and moist. Eyes: Pupils are equal, round, and reactive to light. Neck: Normal range of motion. Neck supple. Cardiovascular: Normal rate, regular rhythm and normal heart sounds. Pulmonary/Chest: No accessory muscle usage. No respiratory distress. She has decreased breath sounds in the right lower field and the left lower field. She has wheezes in the right middle field and the left middle field. She has rhonchi in the right middle field and the left middle field. Insp/exp wheezes Vitals reviewed. ASSESSMENT: Office Visit on 10/02/16 PULSE OXIMETRY - POINT OF CARE (AMB) Result Value Ref Range Oximetry POCT 99% 0 - 100 % QC Verified Yes Yes Encounter Diagnoses Name Primary? Acute bronchitis, unspecified organism Yes ??? Other specified symptoms and signs involving the circulatory and respiratory systems PLAN: Orders Placed This Encounter ??? PULSE OXIMETRY - POINT OF CARE (AMB) Recommend that pt seek treatment at ER without delay for further evaluation of symptoms. CAL DIRECTOR OCCUPATIONAL HEALTH documented in this encounter Plan of Treatment Not on file documented as of this encounter Procedures Procedure Name Priority Date/Time Associated Diagnosis Comments PULSE OXIMETRY - POINT OF CARE (AMB) Routine 10/02/2016 Acute bronchitis, unspecified organism documented in this encounter Results * PULSE OXIMETRY - POINT OF CARE (AMB) (10/02/2016) Oximetry POCT 99% 0 - 100 % QC Verified Yes Yes Blood BLOOD SPECIMEN / Unknown 10/02/2016 Kimberly [facility] - POINT OF C ARE ORDERABLES documented in this encounter Visit Diagnoses Diagnosis Acute bronchitis, unspecified organism- Primary Other specified symptoms and signs involving the circulatory and respiratory systems documented in this encounter
--- OUTSIDE RECORDS SUMMARY | 2024-11-08 19:24 | XMS_ITS | Patient Health Summary ---
Author Organization [facility] Address [address] [place] [address] Care Team Providers Care Garment Finisher Name Role Phone Unavailable Primary Care Provider Unavailabl e Note from [facility],non-owned Affiliates and Associated Physician Practices is amultiple site organization consisting of ambulatory clinics and hospital sitesin [place], [place], [place] and [place]. This disclosure is being madepursuant to the Care Everywhere program and may not contain all information available regarding this patient. Last updated 18.[facility] Allergies * Amoxicillin Medications * Be aware that medications may not be up to date on this document. Alwaysverify current medications with the patient. * norgestimate-ethinyl estradiol (SPRINTEC 28) 0.25-35 MG-MCG tablet Take 1 Tab by mouth once daily * albuterol HFA (PROVENTIL;VENTOLIN;PROAIR) 108 (90 BASE) MCG/ACT inhaler (Started 09/23/2016) Inhale 2 Puffs by mouth every 6 hours as needed * benzonatate (TESSALON) 200 MG capsule(Started 09/23/2016) Take 1 Cap by mouth 3 times daily as needed for Cough Social History Tobacco Use Types Packs/Day Years Used Date Smoking Tobacco: Every Day Cigarettes Sex and Gender Information Value Date Recorded Sex Assigned at Not on file Gender Identity Not on file Sexual Orientation Not on file Last Filed Vital Signs Vital Sign Reading Time Taken Comments Blood Pressure 118/75 10/02/2016 3:32 PM SENIOR CLINICAL DATA COORDINATOR Pulse 88 10/02/2016 3:32 PM SENIOR CLINICAL DATA COORDINATOR Temperature 36.8 ??C (98.2 ??F) 10/02/2016 3:32 PM CS T Respiratory Rate 16 10/02/2016 3:32 PM SENIOR CLINICAL DATA COORDINATOR Oxygen Saturation - - Inhaled Oxygen Concentration - - Weight 61.2 kg (135 lb) 10/02/2016 3:32 PM SENIOR CLINICAL DATA COORDINATOR Height 162.6 cm (5' 4 ) 10/02/2016 3:32 PM SENIOR CLINICAL DATA COORDINATOR Body Mass Index 23.17 10/02/2016 3:32 PM SENIOR CLINICAL DATA COORDINATOR Procedures * PULSE OXIMETRY - POINT OF CARE (AMB)(Performed 10/02/2016) Performed for Acute bronchitis, unspecified organism Results * PULSE OXIMETRY - POINT OF CARE (AMB) (10/02/2016) Oximetry POCT 99% 0 - 100 % QC Verified Yes Yes Blood BLOOD SPECIMEN / Unknown 10/02/2016 Kimberly Rowan APRN-SPECIAL EDUCATION PROFESSIONAL LAB - POINT OF C ARE ORDERABLES
--- OUTSIDE RECORDS SUMMARY | 2024-11-08 19:24 | XMS_ITS | Referral Summary ---
Author Organization [facility] Address [address] [place] [address] Care Team Providers Care Sign Installer Name Role Phone Meir Fallon MD Primary Care Provider [phone] Encounters Date Type Department Care Team Description 09/28/2024 12:38 PM SHEATHER - 09/28/2024 4:08 PM SHEATHER Emergency [facility] Emergency Department [address] [place] [address] Orlando Nava MD Burnside, David W., MD Flank pain (Primary Dx); Lumbar radiculopathy Discharge Disposition: Discharge to home or self care from Last 3 Months Allergies Active Allergy Reactions Criticality Noted Date Comments Erythromycin Base Nausea only,Vomiting High 07/14/20 20 Meperidine Vomiting Medium 07/14/2020 Medications valACYclovir (VALTREX) 500 mg tablet Take 500 mg by mouth daily 0 Active norgestimate-et hinyl estradioL (Tri-Sprintec, 28,) 0.18/0.215/0.25 mg-35 mcg (28) per tablet Tri-Sprintec (28) 0.18 mg(7)/0.215 mg(7)/0.25 mg(7)-35 mcg tablet Active naproxen (NAPROSYN) 500 mg tabletIndicatio ns:Strain of right trapezius muscle, initial encounter Take 1 tablet (500 mg total) by mouth 2 (two) times a day with meals 30 tablet 1 Active Additional Information Patient not taking.Reported on 05/24/2021 famotidine (PEPCID) 40 mg tablet Take 1 tablet (40 mg total) by mouth daily 1 Active HYDROcodone-emerson taminophen (NORCO) 5-325 mg per tabletIndicatio ns:Pain Take 1 tablet by mouth every 6 (six) hours as needed for pain 20 tablet 4 Active carisoprodoL (SOMA) 350 mg tabletIndicatio ns:Muscle Spasm Take 1 tablet (350 mg total) by mouth 3 (three) times a day as needed for muscle spasms (pain) 20 tablet 4 Active Active Problems Problem Noted Date Diagnosed Date Mass of right hip region 07/14/2020 Overview (07/14/2020): Added automatically from request for surgery [id number] Assessment & Plan (08/13/2020 11:15 AM CDT): DAREN drain has been removed at bedside. She can keep this covered for the next 48 hours and then just replace with a Neosporin and Band-Aid. Activities unrestricted at 4 weeks. Patient will call back with any further questions or concerns Assessment & Plan (08/04/2020 12:25 PM CDT): Pathology has been reviewed with the patient. Given the large nature and the defect left I will leave the drain for 1 further week. We will see her back at that time. She will call sooner if any issues arise. Assessment & Plan (07/14/2020 2:00 PM CDT): The patient may have had some fat necrosis that is calcified forming this firm nodule in the superior aspect of the gluteal region. The recent fall has just aggravated. We will set her up for excision of this. Given the size I have discussed if we close it a seroma will likely developed that will open up and drain given the constant motion of this region. We will likely not completely close it and she will have to do dressing changes to allow to heal from the bottom up. She is in understanding. Social History Tobacco Use Types Packs/Day Years Used Date Smoking Tobacco: Former Cigarettes 0.5 10 0 11/13/2008 - 11/13/2018 Smokeless Tobacco: Never Alcohol Use Standard Drinks/Week Comments Yes 0 (1 standard drink = 0.6 oz pur e alcohol) Personal Safety Answer Date Recorded Have you ever been in or are you currently in a harmful physical or emotional relationship or is someone making you feel afraid or unsafe? Denies 09/28/2024 Comments No Sex and Gender Information Value Date Recorded Sex Assigned at Not on file Legal Sex Female 4:31 PM SHEATHER Gender Identity Not on file Sexual Orientation Not on file Last Filed Vital Signs Vital Sign Reading Time Taken Comments Blood Pressure 113/68 09/28/2024 3:30 PM SHEATHER Pulse 90 09/28/2024 3:30 PM SHEATHER Temperature 37 ??C (98.6 ??F) 09/28/2024 3:11 PM SHEATHER Respiratory Rate 16 09/28/2024 3:30 PM SHEATHER Oxygen Saturation 100% 09/28/2024 3:30 PM SHEATHER Inhaled Oxygen Concentration - - Weight 65.8 kg (145 lb) 09/28/2024 12:36 PM SHEATHER Height 162.6 cm (5' 4 ) 09/28/2024 12:36 PM SHEATHER Body Mass Index 24.89 09/28/2024 12:36 PM SHEATHER Plan of Treatment Not on file Procedures Procedure Name Priority Date/Time Associated Diagnosis Comments CT ABDOMEN PELVIS W CONTRAST ED 09/28/2024 2:38 PM SHEATHER URINALYSIS, MICROSCOPIC ONLY STAT 09/28/2024 12:57 PM SHEATHER DIFFERENTIAL AUTO STAT 09/28/2024 12: 57 PM SHEATHER HCG, BLOOD, QUANTITATIVE STAT 09/28/2024 12:57 PM SHEATHER CBC WITH AUTO DIFFERENTIAL STAT 09/28/2024 12:57 PM SHEATHER URINALYSIS AND REFLEX TO MICROSCOPIC AND CULTURE STAT 09/28/2024 12:57 PM SHEATHER from Last 3 Months Results * CT Abdomen Pelvis W Contrast (09/28/2024 2:38 PM SHEATHER) Anatomical Region Laterality Modality Body N/A Computed Tomogra phy 09/28/2024 3:10 PM SHEATHER Narrative 09/28/2024 3:35 PM SHEATHER EXAM DESCRIPTION: ?? CT ABDOMEN PELVIS W CONTRAST REASON FOR STUDY: ?? Flank pain, kidney stone suspected ?? C/o left sided flank pain x 1 week, progressively getting worse. Pt reports frequent vaginal bleeding ? TECHNIQUE: CT scan of the abdomen and pelvis performed with intravenous and ?? without ??oral contrast using helical scanning technique with dynamic intravenous contrast injection. Reconstructed coronal and sagittal MPR images reviewed. All images stored on PACS. Automated exposure control was used as a dose optimization technique for this examination. CONTRAST TYPE/DOSE: ?? 75mL of IOVERSOL 350 MG IODINE/ML INTRAVENOUS SYRINGE ?? injected via ?? intravenous COMPARISON: ?? CT dated July 10, 2020 FINDINGS: LOWER CHEST: ?? No significant pulmonary abnormalities. No effusion. LIVER: ?? Normal size. ??No identified cystic or solid masses. GALLBLADDER: ?? No stones identified. No wall thickening or inflammatory changes. BILE DUCTS: ?? No intrahepatic or extrahepatic ductal dilatation. SPLEEN: ?? Normal size. ??No focal lesions. PANCREAS: ?? No identified cystic or solid masses. No significant calcifications. No adjacent inflammation or peripancreatic fluid collections. Pancreatic duct not dilated. ?? ADRENALS: ?? Normal. KIDNEYS/URINARY TRACT: ?? No identified significant cystic or solid masses. ?? Left renal cyst. ??No visualized stones. No hydronephrosis or hydroureter. Symmetric enhancement. ?Urinary bladder is unremarkable. GI: ?? No dilated bowel loops. No obvious wall thickening. ??Normal appendix. ?? No significant diverticular disease. PERITONEUM: ?? No ascites or free air. RETROPERITONEUM: ?? No mass or adenopathy. REPRODUCTIVE: ?? No significant abnormality. VASCULATURE: ?? No abdominal aortic aneurysm. MUSCULOSKELETAL: ?? No significant abnormality. OTHER: ?? No other abnormality. IMPRESSION: No acute findings identified to suggest etiology of the patient's symptoms. THIS IS AN ELECTRONICALLY VERIFIED FINAL REPORT 09/28/2024 3:35 PM - Electronically signed by ??Meño Bone M.D. JA: VALERIE D: ??09/28/2024 3:35 PM T: ??09/28/2024 3:35 PM Report ID: [id number] Reading Location: ??[id number] Procedure Note Meño Bone MD - 09/28/2024 EXAM DESCRIPTION: CT ABDOMEN PELVIS W CONTRAST REASON FOR STUDY: Flank pain, kidney stone suspected C/o left sided flank pain x 1 week, progressively getting worse. Ptreports frequent vaginal bleeding TECHNIQUE: CT scan of the abdomen and pelvis performed with intravenousand without oral contrast using helical scanning technique with dynamic intravenous contrast injection. Reconstructed coronal and sagittal MPRimages reviewed. All images stored on PACS. Automated exposure control was usedas a dose optimization technique for this examination. CONTRAST TYPE/DOSE: 75mL of IOVERSOL 350 MG IODINE/ML INTRAVENOUSSYRINGE injected via intravenous COMPARISON: CT dated July 10, 2020 FINDINGS: LOWER CHEST: No significant pulmonary abnormalities. No effusion. LIVER: Normal size. No identified cystic or solid masses. GALLBLADDER: No stones identified. No wall thickening or inflammatory changes. BILE DUCTS: No intrahepatic or extrahepatic ductal dilatation. SPLEEN: Normal size. No focal lesions. PANCREAS: No identified cystic or solid masses. No significant calcifications. No adjacent inflammation or peripancreatic fluidcollections. Pancreatic duct not dilated. ADRENALS: Normal. KIDNEYS/URINARY TRACT: No identified significant cystic or solid masses. Left renal cyst. No visualized stones. No hydronephrosis or hydroureter. Symmetric enhancement. Urinary bladder is unremarkable. GI: No dilated bowel loops. No obvious wall thickening. Normalappendix. No significant diverticular disease. PERITONEUM: No ascites or free air. RETROPERITONEUM: No mass or adenopathy. REPRODUCTIVE: No significant abnormality. VASCULATURE: No abdominal aortic aneurysm. MUSCULOSKELETAL: No significant abnormality. OTHER: No other abnormality. IMPRESSION: No acute findings identified to suggest etiology of the patient'ssymptoms. THIS IS AN ELECTRONICALLY VERIFIED FINAL REPORT 09/28/2024 3:35 PM - Electronically signed by Meño PADILLA: VALERIE Report ID: [id number] Reading Location: [place] [address] Orlando Nava MD [facility] CT PROCEDURES Final Resu lt * Differential, auto (09/28/2024 12:57 PM SHEATHER) Neutrophil abs 3.0 1.5 - 6.5 K/cumm Imm gran abs 0.0 0.0 - 0.1 K/cumm [facility] ([place]) Lymphocyte abs 2.3 0.8 - 3.3 K/cumm [facility] ([place]) Monocyte abs 0.4 0.2 - 0.8 K/cumm [facility] ([place]) Eosinophil abs 0.2 0.0 - 0.5 K/cumm [facility] ([place]) Basophil abs 0.1 0.0 - 0.1 K/cumm [facility] ([place]) Neutrophil pct 51.0 % [facility] ([place]) Comment: Interpretive Data Percent cell count reference ranges are not reported, since discordance with absolute values may lead to misinterpretation of CBC data. Current Interpretive Data was last revised on 2018. Imm gran pct 0.0 % [facility] ([place]) Comment: Interpretive Data Percent cell count reference ranges are not reported, since discordance with absolute values may lead to misinterpretation of CBC data. Current Interpretive Data was last revised on 2018. Lymphocyte pct 38.6 % [facility] ([place]) Comment: Interpretive Data Percent cell count reference ranges are not reported, since discordance with absolute values may lead to misinterpretation of CBC data. Current Interpretive Data was last revised on 2018. Monocyte pct 6.4 % [facility] ([place]) Comment: Interpretive Data Percent cell count reference ranges are not reported, since discordance with absolute values may lead to misinterpretation of CBC data. Current Interpretive Data was last revised on 2018. Eosinophil pct 3.0 % [facility] ([place]) Comment: Interpretive Data Percent cell count reference ranges are not reported, since discordance with absolute values may lead to misinterpretation of CBC data. Current Interpretive Data was last revised on 2018. Basophil pct 1.0 % [facility] ([place]) Comment: Interpretive Data Percent cell count reference ranges are not reported, since discordance with absolute values may lead to misinterpretation of CBC data. Current Interpretive Data was last revised on 2018. Blood 09/28/2024 12:5 7 PM SHEATHER 09/28/2024 1:01 PM SHEATHER us Orlando Nava MD LAB BLOOD ORDERABLES Final R esult [facility] ([place]) 1 [facility] [place] [address] * (ABNORMAL) Urinalysis reflex to microscopic and culture Urine (09/28/2024 12:57 PM SHEATHER) Color, ur Yellow Yellow Clarity, ur Clear Clear [facility] ([place]) Specific gravity, ur 1.025 1.003 - 1.030 [facility] ([place]) pH, urine 6.5 [facility] ([place]) Comment: Interpretive Data ? Urine pH is affected by diet, medications, systemic acid-base disturbances, and renal tubular function. ??pH may affect urinary stone formation. ??For example, urine pH below 6.0 may help reduce the tendency for calcium phosphate stones and pH greater than 6.0 may reduce the tendency for uric acid stone formation. Source: [facility] Current Interpretive Data was last revised on 2017 Protein, ur ql Negative Negative [facility] ([place]) Glucose, ur ql Negative Negative [facility] ([place]) Ketones, ur Negative Negative [facility] ([place]) Bilirubin, ur Negative Negative [facility] ([place]) Blood, ur 3+(A) Negative [facility] ([place]) Urobilinogen, ur <2.0 <2.0 mg/dL [facility] ([place]) Nitrite, ur Negative Negative [facility] ([place]) Leukocyte esterase, ur Negative Negative [facility] ([place]) UA reflex comment Reflex to microscopic UA will be performed. [facility] ([place]) Urine 09/28/2024 12:5 7 PM SHEATHER 09/28/2024 1:01 PM SHEATHER us Orlando Nava MD LAB MICROBIOLOGY - GENERAL O RDERABLES Final Result [facility] ([place]) 1 [facility] [place] [address] * CBC with auto differential (09/28/2024 12:57 PM SHEATHER) WBC 5.9 3.8 - 9.9 K/cumm Hgb 12.5 11.9 - 15.5 g/dL [facility] ([place]) Hct 38.4 35.6 - 45.5 % [facility] Plt 254 150 - 400 K/cumm [facility] MPV 9.4 9.1 - 12.3 fL [facility] RBC 4.48 3.90 - 5.20 M/cumm [facility] MCV 85.7 81.3 - 96.4 fL [facility] MCH 27.9 27.1 - 33.3 pg [facility] MCHC 32.6 32.3 - 35.7 g/dL [facility] RDW CV 12.3 11.1 - 14.9 % [facility] RDW SD 38.5 35.7 - 48.1 fL [facility] NRBC abs 0.00 0.00 - 0.01 K/cumm [facility] ([place]) Blood 09/28/2024 12:5 7 PM SHEATHER 09/28/2024 1:01 PM SHEATHER us Orlando Nava MD LAB BLOOD ORDERABLES Final R esult [facility] [place] [address] * (ABNORMAL) Urinalysis, microscopic only (09/28/2024 12:57 PM SHEATHER) WBC, ur 0-5 0 - 5 /HPF RBC, ur 11-20(A) 0 - 2 /HPF [facility] ([place]) Epithelial cells, squamous, ur 1-5 0 - 5 /HPF [facility] ([place]) Mucous, ur Present(A) [facility] ([place]) Culture Reflex Comment Reflex conditions for urine culture (WBC >10) not met. [facility] ([place]) Urine 09/28/2024 12:5 7 PM SHEATHER 09/28/2024 1:01 PM SHEATHER Orlando Nava MD LAB URINE ORDERABLES Final R esult [facility] [place] 1 [facility] [place] [address] * hCG, blood, quantitative (09/28/2024 12:57 PM SHEATHER) hCG, quant <5.0 0.0 - 5.0 IUnits/L Comment: Interpretive Data Male: < 5 IU/L Non- premenopausal Female: <5 IU/L [employer] hCG Beta Quant assay procedure was used. Results from different manufacturers or methods may not be comparable. ??Serial testing should be performed using the same method. Interpretive Data was last revised on 2023 Blood 09/28/2024 12:5 7 PM SHEATHER 09/28/2024 1:01 PM SHEATHER Orlando Nava MD LAB BLOOD ORDERABLES Edited Result - Final Performing Organization Address City/[facility]/ZIP Co de Phone Number [facility] ([place]) 1 [facility] [place] [address] from Last 3 Months Insurance [facility] CHOICE PLUS R [facility] Care Teams Sign Installer Relationship Specialty Start Date End Date Meir Fallon MD PCP - General 07/10/20
--- OUTSIDE RECORDS SUMMARY | 2024-11-08 19:24 | XMS_ITS | Encounter Summary ---
Author Organization [facility] Address [address] [place] [address] Care Team Providers Care Spa Host Name Role Phone Unavailable Primary Care Provider Unavailabl e Reason for Visit * Reason Onset Date Comments Follow-up 09/25/2016 Encounter Details Date Type Department Care Team (Late st Contact Info) Description 09/25/2016 Telephone [facility] [address] [address] Bessie Glover, REGISTERED MASSAGE THERAPIST-TUBE BUILDING MACHINE OPERATOR [address] [address] Follow-up Social History Tobacco Use Types Packs/Day Years Used Date Smoking Tobacco: Every Day Cigarettes Sex and Gender Information Value Date Recorded Sex Assigned at Not on file Gender Identity Not on file Sexual Orientation Not on file documented as of this encounter Plan of Treatment Not on file documented as of this encounter Visit Diagnoses Not on filedocumented in this encounter
--- OUTSIDE RECORDS SUMMARY | 2024-11-08 19:24 | XMS_ITS | Clinical Summary ---
Author Organization [facility] Address [address] [place] [address] Care Team Providers Care Director Of Surgery Name Role Phone Meir Fallon MD Primary Care Provider [phone] Allergies Active Allergy Reactions Criticality Noted Date [...] (07/14/2020): Added automatically from request for surgery [id number] Assessment & Plan (08/13/2020 11:15 AM CDT): [...] the bottom up. She is in understanding. Encounters Date Type Department Care Team Description 09/28/2024 12:38 PM WORKERS COMPENSATION CLAIMS SPECIALIST - 09/28/2024 4:08 PM WORKERS COMPENSATION CLAIMS SPECIALIST Emergency [facility] Emergency Department [address] [place] [address] Orlando Nava MD Burnside, David W., MD Flank pain (Primary Dx); Lumbar radiculopathy Discharge Disposition: Discharge to home or self care from Last 3 Months Surgical History Surgery Date Site/Laterality Comments CERVIX SURGERY 11/06/2006 - 11/05/2007 [place] Medical History Medical History Date Comments HSV-2 infection Family History Medical History Relation Name Comments Diabetes Maternal Grandfather Heart disease Maternal Grandfather Stroke Maternal Grandfather Cancer Maternal Grandmother Heart disease Mother Relation Name Status Comments Maternal Grandfather Maternal Grandmother Mother Social History Tobacco Use Types Packs/Day Years [...] on file Legal Sex Female 4:31 PM WORKERS COMPENSATION CLAIMS SPECIALIST Gender Identity Not on file Sexual Orientation Not on file Obstetrics History Last Filed Vital Signs Vital Sign Reading Time Taken Comments Blood Pressure 113/68 09/28/2024 3:30 PM WORKERS COMPENSATION CLAIMS SPECIALIST Pulse 90 09/28/2024 3:30 PM WORKERS COMPENSATION CLAIMS SPECIALIST Temperature 37 ??C (98.6 ??F) 09/28/2024 3:11 PM WORKERS COMPENSATION CLAIMS SPECIALIST Respiratory Rate 16 09/28/2024 3:30 PM WORKERS COMPENSATION CLAIMS SPECIALIST Oxygen Saturation 100% 09/28/2024 3:30 PM WORKERS COMPENSATION CLAIMS SPECIALIST Inhaled Oxygen Concentration - - Weight 65.8 kg (145 lb) 09/28/2024 12:36 PM WORKERS COMPENSATION CLAIMS SPECIALIST Height 162.6 cm (5' 4 ) 09/28/2024 12:36 PM WORKERS COMPENSATION CLAIMS SPECIALIST Body Mass Index 24.89 09/28/2024 12:36 PM WORKERS COMPENSATION CLAIMS SPECIALIST Plan of Treatment Health Maintenance Due Date Last Done Comments Breast Cancer Screening-Mammogram 1984 Cervical Cancer Screening 1984 Depression Screening 1984 Hepatitis C Screening 1984 DTaP/Tdap/Td Vaccine (1 - Tdap) 02/10/1995 Varicella Vaccines (1 of 2 - 13+ 2-dose series) 02/10/1997 Hepatitis B Screening 02/10/2002 Regular Well Visit/Exam 18-64 02/10/2002 Influenza Vaccine (#1) 2024 HPV Vaccines Aged Out No longer eligi ble based on patient's age to complete this topic Pneumococcal vaccine <65 Aged Out No longer eligible based on patient's age to complete this topic Procedures Procedure Name Priority Date/Time Associated Diagnosis Comments CT ABDOMEN PELVIS W CONTRAST ED 09/28/2024 2:38 PM WORKERS COMPENSATION CLAIMS SPECIALIST URINALYSIS, MICROSCOPIC ONLY STAT 09/28/2024 12:57 PM WORKERS COMPENSATION CLAIMS SPECIALIST DIFFERENTIAL AUTO STAT 09/28/2024 12: 57 PM WORKERS COMPENSATION CLAIMS SPECIALIST HCG, BLOOD, QUANTITATIVE STAT 09/28/2024 12:57 PM WORKERS COMPENSATION CLAIMS SPECIALIST CBC WITH AUTO DIFFERENTIAL STAT 09/28/2024 12:57 PM WORKERS COMPENSATION CLAIMS SPECIALIST URINALYSIS AND REFLEX TO MICROSCOPIC AND CULTURE STAT 09/28/2024 12:57 PM WORKERS COMPENSATION CLAIMS SPECIALIST from Last 3 Months Results * CT Abdomen Pelvis W Contrast (09/28/2024 2:38 PM WORKERS COMPENSATION CLAIMS SPECIALIST) Anatomical Region Laterality Modality Body N/A Computed Tomogra phy 09/28/2024 3:10 PM WORKERS COMPENSATION CLAIMS SPECIALIST Narrative 09/28/2024 3:35 PM WORKERS COMPENSATION CLAIMS SPECIALIST EXAM DESCRIPTION: ?? CT ABDOMEN PELVIS W [...] PM T: ??09/28/2024 3:35 PM Report ID: [id number] Reading Location: ??[id number] Procedure Note Meño Bone MD - 09/28/2024 [...] 3:35 PM - Electronically signed by Meño Bone M.D. JA: VALERIE Report ID: [id number] Reading Location: [place] [address] Orlando Nava MD IMG CT PROCEDURES Final Resu lt * Differential, auto (09/28/2024 12:57 PM WORKERS COMPENSATION CLAIMS SPECIALIST) Neutrophil abs 3.0 1.5 - 6.5 K/cumm [...] revised on 2018. Monocyte pct 6.4 % [facility] ([place]) Comment: Interpretive Data Percent cell count reference [...] revised on 2018. Basophil pct 1.0 % [facility] ([place]) Comment: Interpretive Data Percent cell count reference ranges are not reported, since discordance with absolute values may lead to misinterpretation of CBC data. Current Interpretive Data was last revised on 2018. Blood 09/28/2024 12:5 7 PM WORKERS COMPENSATION CLAIMS SPECIALIST 09/28/2024 1:01 PM WORKERS COMPENSATION CLAIMS SPECIALIST us Orlando Nava MD LAB BLOOD ORDERABLES Final R esult [facility] ([place]) [address] [facility] Department [place] [address] * (ABNORMAL) Urinalysis reflex to microscopic and culture Urine (09/28/2024 12:57 PM WORKERS COMPENSATION CLAIMS SPECIALIST) Color, ur Yellow Yellow Clarity, ur Clear Clear [facility] ([place]) Specific gravity, ur 1.025 1.003 - 1.030 [facility] ([place]) pH, urine 6.5 [facility] ([place]) Comment: Interpretive Data ? Urine pH is affected by diet, medications, systemic acid-base disturbances, and renal tubular function. ??pH may affect urinary stone formation. ??For example, urine pH below 6.0 may help reduce the tendency for calcium phosphate stones and pH greater than 6.0 may reduce the tendency for uric acid stone formation. Source: [facility] Current Interpretive Data was last revised on [...] [facility] ([place]) Urine 09/28/2024 12:5 7 PM WORKERS COMPENSATION CLAIMS SPECIALIST 09/28/2024 1:01 PM WORKERS COMPENSATION CLAIMS SPECIALIST us Orlando Nava MD LAB MICROBIOLOGY - GENERAL O RDERABLES Final Result [facility] ([place]) [address] [facility] Department [place] [address] * CBC with auto differential (09/28/2024 12:57 PM WORKERS COMPENSATION CLAIMS SPECIALIST) WBC 5.9 3.8 - 9.9 K/cumm Hgb 12.5 11.9 - 15.5 g/dL [facility] ([place]) Hct 38.4 35.6 - 45.5 % [facility] ([place]) Plt 254 150 - 400 K/cumm [facility] ([place]) MPV 9.4 9.1 - 12.3 fL [facility] ([place]) RBC 4.48 3.90 - 5.20 M/cumm [facility] ([place]) MCV 85.7 81.3 - 96.4 fL [facility] ([place]) MCH 27.9 27.1 - 33.3 pg [facility] ([place]) MCHC 32.6 32.3 - 35.7 g/dL [facility] ([place]) RDW CV 12.3 11.1 - 14.9 % [facility] ([place]) RDW SD 38.5 35.7 - 48.1 fL [facility] ([place]) NRBC abs 0.00 0.00 - 0.01 K/cumm [facility] ([place]) Blood 09/28/2024 12:5 7 PM WORKERS COMPENSATION CLAIMS SPECIALIST 09/28/2024 1:01 PM WORKERS COMPENSATION CLAIMS SPECIALIST Orlando Nava MD LAB BLOOD ORDERABLES Final [facility] Performing Organization Address [facility] Co de Phone Number [facility] ([place]) [address] [facility] [place] [address] * (ABNORMAL) Urinalysis, microscopic only (09/28/2024 12:57 PM WORKERS COMPENSATION CLAIMS SPECIALIST) WBC, ur 0-5 0 - 5 /HPF RBC, ur 11-20(A) 0 - 2 /HPF [facility] ([place]) Epithelial cells, squamous, ur 1-5 0 - 5 /HPF [facility] ([place]) Mucous, ur Present(A) [facility] Greg ([place]) Culture Reflex Comment Reflex conditions for urine culture (WBC >10) not met. [facility] ([place]) Urine 09/28/2024 12:5 7 PM WORKERS COMPENSATION CLAIMS SPECIALIST 09/28/2024 1:01 PM WORKERS COMPENSATION CLAIMS SPECIALIST Orlando Nava MD LAB URINE ORDERABLES Final [facility] Performing Organization Address [facility] Co de Phone Number [facility] ([place]) [address] [place] [address] * hCG, blood, quantitative (09/28/2024 12:57 PM WORKERS COMPENSATION CLAIMS SPECIALIST) hCG, quant <5.0 0.0 - 5.0 IUnits/L Comment: Interpretive Data Male: < 5 IU/L Non- premenopausal Female: <5 IU/L The [employer] hCG Beta Quant assay procedure was used. Results from different manufacturers or methods may not be comparable. ??Serial testing should be performed using the same method. Interpretive Data was last revised on 2023 Blood 09/28/2024 12:5 7 PM WORKERS COMPENSATION CLAIMS SPECIALIST 09/28/2024 1:01 PM WORKERS COMPENSATION CLAIMS SPECIALIST Orlando Nava MD LAB BLOOD ORDERABLES Edited Result - Final [facility] [place]) [address] [facility] [place] [address] from Last 3 Months Insurance [facility] [employer] Care Teams Director Of Surgery Relationship Specialty Start Date End Date Meir Fallon MD PCP - General 07/10/20
--- OUTSIDE RECORDS SUMMARY | 2024-11-08 19:24 | XMS_ITS | Encounter Summary ---
Author Organization [facility] Healthcare Address [address] [place] [address] Care Team Providers Care Collection Advisor Name Role Phone Meir Fallon MD Primary Care Provider [phone] Reason for Visit * Reason Comments Flank Pain Encounter Details Date Type Department Care Team (Late st Contact Info) Description 09/28/2024 12:38 PM MUSEUM ASSISTANT - 09/28/2024 4:08 PM MUSEUM ASSISTANT Emergency [facility] Emergency Department [address] [place] [address] Orlando Nava MD [address] [place] [address] Edward Gonzales MD [address] [place] [address] Flank pain (Primary Dx); Lumbar radiculopathy Discharge [...] on file Legal Sex Female 4:31 PM MUSEUM ASSISTANT Gender Identity Not on file Sexual Orientation Not on file documented as of this encounter Last Filed Vital Signs Vital Sign Reading Time Taken Comments Blood Pressure 113/68 09/28/2024 3:30 PM MUSEUM ASSISTANT Pulse 90 09/28/2024 3:30 PM MUSEUM ASSISTANT Temperature 37 ??C (98.6 ??F) 09/28/2024 3:11 PM MUSEUM ASSISTANT Respiratory Rate 16 09/28/2024 3:30 PM MUSEUM ASSISTANT Oxygen Saturation 100% 09/28/2024 3:30 PM MUSEUM ASSISTANT Inhaled Oxygen Concentration - - Weight 65.8 kg (145 lb) 09/28/2024 12:36 PM MUSEUM ASSISTANT Height 162.6 cm (5' 4 ) 09/28/2024 12:36 PM MUSEUM ASSISTANT Body Mass Index 24.89 09/28/2024 12:36 PM MUSEUM ASSISTANT documented in this encounter Discharge Instructions * Attachments The following attachments cannot be sent through Care Everywhere. * Back and Neck Pain, General ([place]) * Flank Pain, Uncertain Cause ([place]) documented in this encounter Medications at Time of Discharge carisoprodoL (SOMA) 350 mg tabletIndications :Muscle Spasm Take 1 tablet (350 mg total) by mouth 3 (three) times a day as needed for muscle spasms (pain) 20 tablet 09/28/2024 famotidine (PEPCID) 40 mg tablet Take 1 tablet (40 mg total) by mouth daily 05/07/2021 HYDROcodone-aceta minophen (NORCO) 5-325 mg per tabletIndications :Pain Take 1 tablet by mouth every 6 (six) hours as needed for pain 20 tablet 09/28/2024 naproxen (NAPROSYN) 500 mg tabletIndications :Strain of [...] daily 04/28/2020 documented as of this encounter Ordered Prescriptions Prescription Sig Dispense Quantity Refills Last Filled Start Date End Date carisoprodoL (SOMA) 350 mg tabletIndications:Reginald uscle Spasm Take 1 tablet (350 mg total) by mouth 3 (three) times a day as needed for muscle spasms (pain) 20 tablet 09/28/2024 HYDROcodone-acetami nophen (NORCO) 5-325 mg per tabletIndications:Darryl aileydi Take 1 tablet by mouth every 6 (six) hours as needed for pain 20 tablet 09/28/2024 documented in this encounter Discharge Disposition Disposition Code Departure Means Destination Comment s Discharge to home or self care documented in this encounter ED Notes * Orlando Nava MD - 09/28/2024 12:54 PM CST HPI Chief Complaint Patient presents with ??? Flank Pain Patient has left-sided flank pain for a week. It is getting progressively worse. Pain is a 10. No urinary symptoms. No nausea or vomiting. No diarrhea. She is having irregular periods. She started menstrual bleeding yesterday. She is taking Slynd. Patient says she had the flu last week. Patient History: Patient Active Problem List Diagnosis Date Noted ??? Mass of right hip region 07/14/2020 Past Medical History: Diagnosis Date ??? HSV-2 infection Past Surgical History: Procedure Laterality Date ??? CERVIX SURGERY 2007 [place] Family History Problem Relation Age of Onset ??? Heart disease Mother ??? Cancer Maternal Grandmother ??? Diabetes Maternal Grandfather ??? Heart disease Maternal Grandfather ??? Stroke Maternal Grandfather Social History Tobacco Use ??? Smoking status: Former Current packs/day: 0.00 Average packs/day: 0.5 packs/day for 10.0 years (5.0 ttl pk-yrs) Types: Cigarettes Start date: 11/13/2008 Quit date: 11/13/2018 Years since quittin.8 ??? Smokeless tobacco: Never Vaping Use ??? Vaping status: Never Used Substance and Sexual Activity ??? Alcohol use: Yes ??? Drug use: Never ??? Sexual activity: Defer Social History Social History Narrative ??? Not on file Review of Systems Review of Systems Constitutional: Negative for chills and fever. HENT: Negative for congestion, rhinorrhea and sore throat. Eyes: Negative for pain. Respiratory: Negative for cough and shortness of breath. Cardiovascular: Negative for chest pain and leg swelling. Gastrointestinal: Negative for abdominal pain, diarrhea, nausea and vomiting. Genitourinary: Positive for flank pain and vaginal bleeding. Negative for difficulty urinating. Musculoskeletal: Positive for back pain. Negative for myalgias. Skin: Negative for rash. Neurological: Negative for dizziness and headaches. Psychiatric/Behavioral: Negative for behavioral problems. Physical Exam ED Triage Vitals [09/28/24 1236] Temp Pulse Resp BP SpO2 37.1 ??C (98.7 ??F) 93 20 138/88 100 % Temp src Heart Rate Source Patient Position BP Location FiO2 (%) Temporal -- -- -- -- Height Height Method Weight Weight Method 1.626 m (5' 4 ) Stated 65.8 kg (145 lb) Stated Physical Exam Vitals and nursing note reviewed. Constitutional: General: She is not in acute distress. Appearance: She is well-developed. HENT: Head: Normocephalic and atraumatic. Eyes: Conjunctiva/sclera: Conjunctivae normal. Cardiovascular: Rate and Rhythm: Normal rate and regular rhythm. Heart sounds: No murmur heard. Pulmonary: Effort: Pulmonary effort is normal. No respiratory distress. Breath sounds: Normal breath sounds. Abdominal: Palpations: Abdomen is soft. Tenderness: There is no abdominal tenderness. There is left CVA tenderness. Genitourinary: Vagina: No vaginal discharge. Comments: Minimal blood, no tenderness Musculoskeletal: General: No swelling. Cervical back: Neck supple. Skin: General: Skin is warm and dry. Capillary Refill: Capillary refill takes less than 2 seconds. Neurological: Mental Status: She is alert. Psychiatric: Mood and Affect: Mood normal. Labs Reviewed URINALYSIS AND REFLEX TO MICROSCOPIC AND CULTURE - Abnormal Result Value Color, ur Yellow Clarity, ur Clear Specific gravity, ur 1.025 pH, urine 6.5 Protein, ur ql Negative Glucose, ur ql Negative Ketones, ur Negative Bilirubin, ur Negative Blood, ur 3+ (*) Urobilinogen, ur <2.0 Nitrite, ur Negative Leukocyte esterase, ur Negative UA reflex comment Reflex to microscopic UA will be performed. URINALYSIS, MICROSCOPIC ONLY - Abnormal WBC, ur 0-5 RBC, ur 11-20 (*) Epithelial cells, squamous, ur 1-5 Mucous, ur Present (*) Culture Reflex Comment Value: Reflex conditions for urine culture (WBC >10) not met. CBC WITH AUTO DIFFERENTIAL WBC 5.9 Hgb 12.5 Hct 38.4 Plt 254 MPV 9.4 RBC 4.48 MCV 85.7 MCH 27.9 MCHC 32.6 RDW CV 12.3 RDW SD 38.5 NRBC abs 0.00 HCG, BLOOD, QUANTITATIVE hCG, quant <5.0 DIFFERENTIAL AUTO Neutrophil abs 3.0 Imm gran abs 0.0 Lymphocyte abs 2.3 Monocyte abs 0.4 Eosinophil abs 0.2 Basophil abs 0.1 Neutrophil pct 51.0 Imm gran pct 0.0 Lymphocyte pct 38.6 Monocyte pct 6.4 Eosinophil pct 3.0 Basophil pct 1.[address] Abdomen Pelvis W Contrast (Results Pending) MDM Medical Decision Making Patient has left flank pain, irregular periods. Amount and/or Complexity of Data Reviewed Labs: ordered. Details: Urine: 11-20 RBC Radiology: ordered. Discussion of management or test interpretation with external provider(s): Differential diagnosis: Kidney stone, UTI, abdominal infection, project administrative assistant abnormality. Pending CT scan. Risk Prescription drug management. ED Course as of 09/28/24 1400 Time: 09/28 1400 Comment: Dr. Gonzales taking over care. By: Orlando Nava MD Final diagnoses: Flank pain Orlando Nava MD 09/28/24 1400 UM ASSISTANT * Michelle Randall RN - 09/28/2024 12:35 PM CST Pt to the ED with c/o left sided flank pain x 1 week. Pt reports frequent vaginal bleeding. UM ASSISTANT documented in this encounter Miscellaneous Notes * ED Re-evaluation Note - Edward Gonzales MD - 09/28/2024 3:54 PM MUSEUM ASSISTANT ED Re-evaluation Took over for Dr. 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 there is some spasm and pain in the lumbar muscles I think she has got a pinched nerve in the upper L-spine given that overnight when the vertebral discs rehydrate she would have more room for the nerves and has a day goes on it will get worse Edward Gonzales MD 09/28/24 1555 UM ASSISTANT documented in this encounter Plan of Treatment Not on file documented as of this encounter Procedures Procedure Name Priority Date/Time Associated Diagnosis Comments CT ABDOMEN PELVIS W CONTRAST ED 09/28/2024 2:38 PM MUSEUM ASSISTANT DIFFERENTIAL AUTO STAT 09/28/2024 12: 57 PM MUSEUM ASSISTANT URINALYSIS AND REFLEX TO MICROSCOPIC AND CULTURE STAT 09/28/2024 12:57 PM MUSEUM ASSISTANT CBC WITH AUTO DIFFERENTIAL STAT 09/28/2024 12:57 PM MUSEUM ASSISTANT URINALYSIS, MICROSCOPIC ONLY STAT 09/28/2024 12:57 PM MUSEUM ASSISTANT HCG, BLOOD, QUANTITATIVE STAT 09/28/2024 12:57 PM MUSEUM ASSISTANT documented in this encounter Results * CT Abdomen Pelvis W Contrast (09/28/2024 2:38 PM MUSEUM ASSISTANT) Anatomical Region Laterality Modality Body N/A Computed Tomogra phy 09/28/2024 3:10 PM MUSEUM ASSISTANT Narrative 09/28/2024 3:35 PM MUSEUM ASSISTANT EXAM DESCRIPTION: ?? CT ABDOMEN PELVIS W [...] 3:35 PM - Electronically signed by ??Meño PADILLA: VALERIE Mao: ??09/28/2024 3:35 PM T: ??09/28/2024 3:35 PM Report ID: [id number] Reading Location: ??[id number] Procedure Note Meño Bone MD - 09/28/2024 [...] Meño Bone M.D. JA: VALERIE Report ID: [id number] Reading Location: [id number] Orlando Nava MD IM CT PROCEDURES Final Resu lt * (ABNORMAL) Urinalysis, microscopic only (09/28/2024 12:57 PM MUSEUM ASSISTANT) WBC, ur 0-5 0 - 5 /HPF RBC, ur 11-20(A) 0 - 2 /HPF [facility] ([place]) Epithelial cells, squamous, ur 1-5 0 - 5 /HPF [facility] ([place]) Mucous, ur Present(A) [facility] ([place]) Culture Reflex Comment Reflex conditions for urine culture (WBC >10) not met. [facility] ([place]) Urine 09/28/2024 12:5 7 PM MUSEUM ASSISTANT 09/28/2024 1:01 PM MUSEUM ASSISTANT us Orlando Nava MD LAB URINE ORDERABLES Final R esult [facility] ([place]) 1 [facility] Department [place] [address] * Differential, auto (09/28/2024 12:57 PM MUSEUM ASSISTANT) Neutrophil abs 3.0 1.5 - 6.5 K/cumm Imm gran abs 0.0 0.0 - 0.1 K/cumm [facility] ([place]) Lymphocyte abs 2.3 0.8 - 3.3 K/cumm [facility] ([place]) Monocyte abs 0.4 0.2 - 0.8 K/cumm [facility] ([place]) Eosinophil abs 0.2 0.0 - 0.5 K/cumm [facility] ([place]) Basophil abs 0.1 0.0 - 0.1 K/cumm [facility] ([place]) Neutrophil pct 51.0 % [facility] ([place]) Comment: Interpretive Data Percent cell count reference ranges are not reported, since discordance with absolute values may lead to misinterpretation of CBC data. Current Interpretive Data was last revised on 2018. Imm gran pct 0.0 % [facility] ([place]) Comment: Interpretive Data Percent cell count reference [...] on 2018. Blood 09/28/2024 12:5 7 PM MUSEUM ASSISTANT 09/28/2024 1:01 PM MUSEUM ASSISTANT Orlando Nava MD LAB BLOOD ORDERABLES Final R esult [facility] ([place]) 1 [facility] Department [place] [address] * (ABNORMAL) Urinalysis reflex to microscopic and culture Urine (09/28/2024 12:57 PM MUSEUM ASSISTANT) Color, ur Yellow Yellow Clarity, ur Clear Clear [facility] ([place]) Specific gravity, ur 1.025 1.003 - 1.030 [facility] ([place]) pH, urine 6.5 [facility] ([place]) Comment: Interpretive Data ? Urine pH is affected by diet, medications, systemic acid-base disturbances, and renal tubular function. ??pH may affect urinary stone formation. ??For example, urine pH below 6.0 may help reduce the tendency for calcium phosphate stones and pH greater than 6.0 may reduce the tendency for uric acid stone formation. Source: [facility] [employer] Current Interpretive Data was last revised on [...] Reflex to microscopic UA will be performed. [facility] ([place]) Urine 09/28/2024 12:5 7 PM MUSEUM ASSISTANT 09/28/2024 1:01 PM MUSEUM ASSISTANT Orlando Nava MD LAB MICROBIOLOGY - GENERAL O RDERABLES Final Result Performing Organization Address [facility] Co de Phone Number [facility] ([place]) 1 [facility] [place] [address] * hCG, blood, quantitative (09/28/2024 12:57 PM MUSEUM ASSISTANT) Pathologist [facility] hCG, quant <5.0 0.0 - 5.0 IUnits/L Comment: Interpretive Data Male: < 5 IU/L Non- premenopausal Female: <5 IU/L The [employer] hCG Beta Quant assay procedure was used. Results from different manufacturers or methods may not be comparable. ??Serial testing should be performed using the same method. Interpretive Data was last revised on 2023 Blood 09/28/2024 12:5 7 PM MUSEUM ASSISTANT 09/28/2024 1:01 PM MUSEUM ASSISTANT Orlando Nava MD LAB BLOOD ORDERABLES Edited Result - Final Performing Organization Address City/[facility]/ZIP Co de Phone Number [facility] ([place]) 1 [facility] [place] [address] * CBC with auto differential (09/28/2024 12:57 PM MUSEUM ASSISTANT) Pathologist [facility] WBC 5.9 3.8 - 9.9 K/cumm Hgb [...] NRBC abs 0.00 0.00 - 0.01 K/cumm [facility] ([place]) Blood 09/28/2024 12:5 7 PM MUSEUM ASSISTANT 09/28/2024 1:01 PM MUSEUM ASSISTANT us Orlando Nava MD LAB BLOOD ORDERABLES Final R esult [facility] ([place]) 1 [facility] Department of Laboratories [place], [place] [id number] documented in this encounter Visit Diagnoses Diagnosis Flank pain- Primary Abdominal pain, unspecified site Lumbar radiculopathy Thoracic or lumbosacral neuritis or radiculitis, unspecified documented in this encounter Administered Medications Inactive Administered Medications - up to 3 most recent administrations Medication Order MAR Action Action Date Dose Rate Site ioversoL (OPTIRAY 350) syringe 75 mL 75 mL, intravenous, Once in imaging, contrast, Starting on 09/28/24 at 1429, For 1 dose Contrast Given 09/28/2024 2:29 PM MUSEUM ASSISTANT 75 mL ketorolac (TORADOL) 30 mg/mL injection 30 mg 30 mg, intravenous, Once, On 09/28/24 at 1251, For 1 dose, For Adult IV push, administer over 15 seconds Given 09/28/2024 12:57 PM MUSEUM ASSISTANT 30 mg documented in this encounter Active and Recently Administered Medications Times are shown in MUSEUM ASSISTANT. Scheduled Medication Order 09/26/2024 09/27/2024 09/28/2024 ketorolac (TORADOL) 30 mg/mL injection 30 mg (COMPLETED) 30 mg, intravenous, Once, On 09/28/24 at 1251, For 1 dose, For Adult IV push, administer over 15 seconds 1257 (Given - Provid er: Yazmin Trujillo, JULIA) PRN Medication Order 09/26/2024 09/27/2024 09/28/2024 ioversoL (OPTIRAY 350) syringe 75 mL (COMPLETED) 75 mL, intravenous, Once in imaging, contrast, Starting on 09/28/24 at 1429, For 1 dose 1429 (Contrast Given - Provider: Analia Vaughn, RT) documented in this encounter Care Teams Collection Advisor Relationship Specialty Start Date End Date Meir Fallon MD PCP - General 07/10/20 documented as of this encounter
--- OUTSIDE RECORDS SUMMARY | 2024-11-08 19:24 | XMS_ITS | Encounter Summary ---
Author Organization [facility] Healthcare Address [address] [place] [address] Care Team Providers Care Sap Portal Architect Name Role Phone Meir Fallon MD Primary Care Provider [phone] [phone] Encounter Details Date Type Department Care Team (Late st Contact Info) Description 03/19/2024 11:40 AM CDT Ancillary Procedure [facility] Outside Films Social History Tobacco Use Types Packs/Day Years Used Date Smoking Tobacco: Former Cigarettes 0.5 10 0 11/13/2008 - 11/13/2018 Smokeless Tobacco: Never Alcohol Use Standard Drinks/Week Comments Yes 0 (1 standard drink = 0.6 oz pur e alcohol) Comments No Sex and Gender Information Value Date Recorded Sex Assigned at Not on file Legal Sex Female 4:31 PM BAKERY ASSISTANT Gender Identity Not on file Sexual Orientation Not on file documented as of this encounter Plan of Treatment Not on file documented as of this encounter Procedures Procedure Name Priority Date/Time Associated Diagnosis Comments MRI TRANSFER OF OUTSIDE FILMS Routine 03/19/2024 11:39 AM CDT documented in this encounter Results * MRI Outside Reference (03/19/2024 11:39 AM CDT) Narrative [facility] - 03/19/2024 11:39 AM CDT This order has been auto-finalized and does not contain a result. us Provider Transcribed Order IMG MRI PROCEDURES Fi nal Result [facility] documented in this encounter Visit Diagnoses Not on filedocumented in this encounter Care Teams Sap Portal Architect Relationship Specialty Start Date End Date Meir Fallon MD PCP - General 07/10/20 documented as of this encounter
--- OUTSIDE RECORDS SUMMARY | 2024-11-08 19:25 | XMS_ITS | Encounter Summary ---
Author Organization [facility] Address [address] [facility] [address] [place] [address] Care Team Providers Care Video Presentation Operator Name Role Phone Meir Fallon MD Primary Care Provider [phone] Encounter Details Date Type Department Care Team (Late st Contact Info) Description 05/25/2021 Telephone [facility] [address] [place] [address] Kathleen Arreaga MA Social History Tobacco Use Types Packs/Day Years Used Date Smoking Tobacco: Former Cigarettes 0.5 10 0 11/13/2008 - 11/13/2018 Smokeless Tobacco: Never Alcohol Use Standard Drinks/Week Comments Yes 0 (1 standard drink = 0.6 oz pur e alcohol) Comments No Sex and Gender Information Value Date Recorded Sex Assigned at Not on file Legal Sex Female 4:31 PM STAFF ENGINEER Gender Identity Not on file Sexual Orientation Not on file documented as of this encounter Miscellaneous Notes * Telephone Encounter - Kathleen Arreaga MA - 05/25/2021 10:57 AM CDT Patient was notified that her Covid-19 test was negative. Patient was informed that she should continue to self isolate until at least 10 days have passed since the onset of her symptoms and she has been fever free without the use of fever reducing medications for at least 24 hours. Patient verbalized understanding. * Telephone Encounter - Kathleen Arreaga MA - 05/25/2021 10:57 AM CDT ----- Message from Zulema Miranda NP sent at 05/25/2021 8:12 AM CDT ----- [facility] Pool, please contact patient regarding negative covid results. Please instruct to follow the 10 day and 24 hour rule. documented in this encounter Plan of Treatment Not on file documented as of this encounter Visit Diagnoses Not on filedocumented in this encounter Additional Health Concerns Infection Onset Date Last Indicated Resolved Time COVID: Suspected 05/24/2021 05/24/2021 05/25/2021 7:51 AM CDT documented as of this encounter Care Teams Video Presentation Operator Relationship Specialty Start Date End Date Meir Fallon MD PCP - General 07/10/20 documented as of this encounter
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
--- OUTSIDE RECORDS SUMMARY | 2024-11-08 19:25 | XMS_ITS | Encounter Summary ---
Author Organization [facility] Medical [facility] Address [address] [address] Care Team Providers Care Supervisor Wall Mirror Department Name Role Phone Meir Fallon MD Primary Care Provider [phone] Reason for Visit * Reason Onset Date Comments Test Results 05/26/2021 Encounter Details Date Type Department Care Team (Late st Contact Info) Description 05/26/2021 Telephone [facility] [address] [place] [address] Kathleen Arreaga MA Test Results Social History Tobacco Use Types Packs/Day Years Used Date Smoking Tobacco: Former Cigarettes 0.5 10 0 11/13/2008 - 11/13/2018 Smokeless Tobacco: Never Alcohol Use Standard Drinks/Week Comments Yes 0 (1 standard drink = 0.6 oz pur e alcohol) Comments No Sex and Gender Information Value Date Recorded Sex Assigned at Not on file Legal Sex Female 4:31 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 * Telephone Encounter - Kathleen Arreaga MA - 05/26/2021 9:01 AM CDT Left message for patient to call back to discuss negative throat culture results. * Telephone Encounter - Kathleen Arreaga MA - 05/26/2021 9:00 AM CDT ----- Message from Zulema Miranda NP sent at 05/26/2021 8:13 AM CDT ----- [facility] cc pool, please inform patient of negative throat culture report. Follow up with PCP if symptoms persist. documented in this encounter Plan of Treatment Not on file documented as of this encounter Visit Diagnoses Not on filedocumented in this encounter Care Teams Supervisor Wall Mirror Department Relationship Specialty Start Date End Date Meir Fallon MD PCP - General 07/10/20 documented as of this encounter
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
--- OUTSIDE RECORDS SUMMARY | 2024-11-08 19:25 | XMS_ITS | Encounter Summary ---
Author Organization [facility] Medical Group Address [address] [facility] [address] [place] [address] Care Team Providers Care Art Education Professor Name Role Phone Meir Fallon MD Primary Care Provider [phone] Encounter Details Date Type Department Care Team (Late st Contact Info) Description 07/14/2020 Orders Only [facility] [address] [facility] [address] [place] [phone] Chandni Sanchez LPN Social History Tobacco Use Types Packs/Day Years Used Date Smoking Tobacco: Former Cigarettes 0.5 10 0 11/13/2008 - 11/13/2018 Alcohol Use Standard Drinks/Week Comments Yes 0 (1 standard drink = 0.6 oz pur e alcohol) Comments No Sex and Gender Information Value Date Recorded Sex Assigned at Not on file 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
--- OUTSIDE RECORDS SUMMARY | 2024-11-08 19:25 | XMS_ITS | Encounter Summary ---
Author Organization [facility] Healthcare Address [address] [place] [address] Care Team Providers Care Relocation Counselor Name Role Phone Unavailable Primary Care Provider Unavailabl e Encounter Details Date Type Department Care Team (Late st Contact Info) Description 07/08/2010 8:11 PM CDT - 07/08/2010 11:59 PM CDT Hospital Encounter [facility] Social History Tobacco Use Types Packs/Day Years Used Date Smoking Tobacco: Never Assessed Comments Unknown Sex and Gender Information Value Date Recorded Sex Assigned at Not on file Legal Sex Female 4:31 PM MORGUE LIBRARIAN Gender Identity Not on file Sexual Orientation Not on file documented as of this encounter Plan of Treatment Not on file documented as of this encounter Visit Diagnoses Not on filedocumented in this encounter
--- OUTSIDE RECORDS SUMMARY | 2024-11-08 19:25 | XMS_ITS | Encounter Summary ---
Author Organization [facility] Healthcare Address [address] [place] [address] Care Team Providers Care Textile Designs Sales Representative Name Role Phone Meir Fallon MD Primary Care Provider [phone] [phone] Encounter Details Date Type Department Care Team (Late st Contact Info) Description 05/24/2021 8:40 PM CDT Lab [address] [id number] Upper respiratory tract infection, unspecified type Social History Tobacco Use Types Packs/Day Years Used Date Smoking Tobacco: Former Cigarettes 0.5 10 0 11/13/2008 - 11/13/2018 Smokeless Tobacco: Never Alcohol Use Standard Drinks/Week Comments Yes 0 (1 standard drink = 0.6 oz pur e alcohol) Comments No Sex and Gender Information Value Date Recorded Sex Assigned at Not on file Legal Sex Female 4:31 PM 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 * Result Encounter Note - Kathleen Arreaga MA - 05/26/2021 9:01 AM CDT Left message for patient to call back to discuss negative throat culture results. documented in this encounter Plan of Treatment Not on file documented as of this encounter Procedures Procedure Name Priority Date/Time Associated Diagnosis Comments THROAT CULTURE Routine 05/24/2021 4:10 PM CDT Upper respiratory tract infection, unspecified type documented in this encounter Results * Throat culture Throat (05/24/2021 4:10 PM CDT) Report Final Report: No growth of pathogens. SEBASTIEN AREVALO Comment:Testing performed by : [facility], [address] [place]., [address] Throat 05/24/2021 4:10 PM CDT 05/24/2021 10:44 PM CDT Narrative SEBASTIEN AREVALO - 05/25/2021 8:32 PM CDT Testing performed by [facility] ([phone]). Zulema Miranda COMPUTER NETWORK SUPPORT SPECIALIST LAB MICROBIOLOGY - GENERAL OR DERABLES Final Result SEBASTIEN [address] Department [place] [address] documented in this encounter Visit Diagnoses Diagnosis Upper respiratory tract infection, unspecified type documented in this encounter Additional Health Concerns Infection Onset Date Last Indicated Resolved Time COVID: Suspected 05/24/2021 05/24/2021 05/25/2021 7:51 AM CDT documented as of this encounter Care Teams Textile Designs Sales Representative Relationship Specialty Start Date End Date Meir Fallon MD PCP - General 07/10/20 documented as of this encounter
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
--- OUTSIDE RECORDS SUMMARY | 2024-11-08 19:25 | XMS_ITS | Encounter Summary ---
Author Organization [facility] Medical Group Address [address] [place] [address] Care Team Providers Care Highway Commissioner Name Role Phone Meir Fallon MD Primary Care Provider [phone] [phone] Reason for Visit * Reason Comments Mass right hip 07/29/2020 Encounter Details Date Type Department Care Team (Late st Contact Info) Description 08/13/2020 10:55 AM CDT Office Visit [facility] [address] [place] [address] Robson Osullivan MD [address] [place] [address] [address] [place] [address] Mass of right hip region (Primary Dx) Social History Tobacco Use Types Packs/Day Years Used Date Smoking Tobacco: Former Cigarettes 0.5 10 0 11/13/2008 - 11/13/2018 Alcohol Use Standard Drinks/Week Comments Yes 0 (1 standard drink = 0.6 oz pur e alcohol) Comments No Sex and Gender Information Value Date Recorded Sex Assigned at Not on file 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 Gender Identity Not on file Sexual Orientation Not on file documented as of this encounter Last Filed Vital Signs Vital Sign Reading Time Taken Comments Blood Pressure 139/87 08/13/2020 10:58 AM CDT Pulse 82 08/13/2020 10:58 AM CDT Temperature 36.3 ??C (97.3 ??F) 08/13/2020 10:58 AM C DT Respiratory Rate - - Oxygen Saturation - - Inhaled Oxygen Concentration - - Weight 80.5 kg (177 lb 6.4 oz) 08/13/2020 10:58 AM CDT Height 162.6 cm (5' 4 ) 08/13/2020 10:58 AM CDT Body Mass Index 30.45 08/13/2020 10:58 AM CDT documented in this encounter Progress Notes * Robson Osullivan MD - 08/13/2020 10:55 AM CDT Images from the original note were not included. Post Op Note Subjective: Patient Name: Patt Fitzgerald Date of Visit: 08/13/20 HPI: No complaints since last visit. The output from the tube is around 5 or less a day Chief Complaint: Mass right hip (07/29/2020) Objective: Vitals BP 139/87 (BP Location: Right arm, Patient Position: Sitting) Pulse 82 Temp 36.3 ??C (97.3 ??F) Ht 162.6 cm (5' 4 ) Wt 80.5 kg (177 lb 6.4 oz) BMI 30.45 kg/m?? Physical Exam Incision well healed. DAREN with minimal serous output Assessment/Plan Diagnoses and all orders for this visit: Mass of right hip region (Primary) Assessment & Plan: DAREN drain has been removed at bedside. She can keep this covered for the next 48 hours and then justreplace with a Neosporin and Band-Aid. Activities unrestricted at 4 weeks. Patient will call back with any further questions or concerns 11:15 AM 08/13/2020 documented in this encounter Miscellaneous Notes * Assessment & Plan Note - Robson Osullivan MD - 08/13/2020 11:15 AM CDTAssociated Problem(s): Mass of right hip region DAREN drain has been removed at bedside. She can keep this covered for the next 48 hours and then justreplace with a Neosporin and Band-Aid. Activities unrestricted at 4 weeks. Patient will call back with any further questions or concerns documented in this encounter Plan of Treatment Not on file documented as of this encounter Visit Diagnoses Diagnosis Mass of right hip region- Primary documented in this encounter Discontinued Medications Medication Sig Discontinue Reason Start Date End Da te ondansetron (ZOFRAN) 4 mg tablet Take 1 tablet (4 mg total) by mouth every 6 (six) hours as needed for nausea or vomiting for up to 14 days Therapy completed 07/29/2020 08/13/2020 documented as of this encounter Care Teams Highway Commissioner Relationship Specialty Start Date End Date Meir Fallon MD PCP - General 07/10/20 documented as of this encounter
--- OUTSIDE RECORDS SUMMARY | 2024-11-08 19:25 | XMS_ITS | Encounter Summary ---
Author Organization [facility] Address [address] [place] [address] Care Team Providers Care Straw Hat Plunger Operator Name Role Phone Meir Fallon MD Primary Care Provider [phone] Encounter Details Date Type Department Care Team (Late st Contact Info) Description 07/31/2020 Telephone [facility] [address] [place] [address] Chandni Sanchez LPN Social History Tobacco Use Types Packs/Day Years Used Date Smoking Tobacco: Former Cigarettes 0.5 10 0 11/13/2008 - 11/13/2018 Alcohol Use Standard Drinks/Week Comments Yes 0 (1 standard drink = 0.6 oz pur e alcohol) Comments No Sex and Gender Information Value Date Recorded Sex Assigned at Not on file Legal Sex Female 4:31 PM [employer] Gender Identity Not on file Sexual Orientation Not on file documented as of this encounter Miscellaneous Notes * Telephone Encounter - Chandni Sanchez LPN - 07/31/2020 8:47 AM CDT Pt called stating not much drainage in drain, surgery only 2 days ago, inst stripping tube, and seehow is over weekend. Pt verbalizes good understanding. Has Post op appt 08/06 documented in this encounter Plan of Treatment Not on file documented as of this encounter Visit Diagnoses Not on filedocumented in this encounter Care Teams Straw Hat Plunger Operator Relationship Specialty Start Date End Date Meir Fallon MD PCP - General 07/10/20 documented as of this encounter
--- OUTSIDE RECORDS SUMMARY | 2024-11-08 19:25 | XMS_ITS | Encounter Summary ---
Author Organization [facility] Healthcare Address [address] [place] [address] Care Team Providers Care Card Checker Name Role Phone Meir Fallon MD Primary Care Provider [phone] Encounter Details Date Type Department Care Team (Late st Contact Info) Description 07/29/2020 9:48 AM CDT - 07/29/2020 11:08 AM CDT Surgery [facility] Operating Room [address] [place] [address] Robson Osullivan MD [address] [place] [id number] EXCISION OF RIGHT GLUTEAL SUBCUTANEOUS MASS Surgery Details Date/Time Status Location OR Service Patient Class Case Cl ass Case Type Trauma Case? 07/29/2020 9:48 AM Posted [facility] OPERATING ROOM OR General Surgery Outpatient Elective Panel 1 Procedure LRB Anes Op Region Wound Class Comments EXCISION OF RIGHT GLUTEAL SUBCUTANEOUS MASS Right Choice Hip Class I - Clean Surgeon Surgeon Role Service Panel Robson Osullivan MD Primary General Surgery 1 documented in this encounter Social History Tobacco Use Types Packs/Day Years Used Date Smoking Tobacco: Former Cigarettes 0.5 10 0 11/13/2008 - 11/13/2018 Alcohol Use Standard Drinks/Week Comments Yes 0 (1 standard drink = 0.6 oz pur e alcohol) Comments No Sex and Gender Information Value Date Recorded Sex Assigned at Not on file 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 Gender Identity Not on file Sexual Orientation Not on file documented as of this encounter Last Filed Vital Signs Vital Sign Reading Time Taken Comments Blood Pressure 123/86 07/29/2020 11:06 AM CDT Pulse 92 07/29/2020 11:06 AM CDT Temperature 36.4 ??C (97.5 ??F) 07/29/2020 11:06 AM C DT Respiratory Rate 18 07/29/2020 11:06 AM CDT Oxygen Saturation 100% 07/29/2020 11:06 AM CDT Inhaled Oxygen Concentration - - Weight 78.5 kg (173 lb 1 oz) 07/29/2020 7:58 AM CDT Height 162.6 cm (5' 4 ) 07/29/2020 7:58 AM CDT Body Mass Index 29.71 07/29/2020 7:58 AM CDT documented in this encounter Discharge Instructions * Discharge Instructions* Rafaela Leon RN - 07/29/2020 11:54 AM CDT Discharge Instructions: 1. No driving while on narcotics 2. No heavy lifting greater than a milk jug until follow up 3. Ice to operative site, on 15 minutes off 15 minutes as needed for pain 4. May shower starting 07/31, No tub baths or soaking of incisions 5. Take stool softner while on narcotics to prevent constipation 6. Call for worsening pain, erythema, drainage or any other concerns about your incisions or post operative course 7. Follow up in 1 week, Please call office for appointment 8. Diet, until follow up: as tolerates 9. Strip and record your DAREN drain output daily * Attachments The following attachments cannot be sent through Care Everywhere. * General Anesthesia (Discharge Care) (Nigerien) * Jake-Norman Drain Care (Discharge Care) (Nigerien) * Hydrocodone/Acetaminophen (By mouth) (Nigerien) * Ondansetron (By mouth, Into the mouth) (Nigerien) * Laxative, Stool Softeners (By mouth) (Nigerien) documented in this encounter Medications at Time of Discharge valACYclovir (VALTREX) 500 mg tablet Take 500 mg by mouth daily 04/28/2020 docusate sodium (Colace) 100 mg capsuleIndicatio ns:constipation Take 1 capsule (100 mg total) by mouth 2 (two) times a day for 14 days 28 capsule 2 07/29/2020 08/13/2020 HYDROcodone-acet aminophen (NORCO) 5-325 mg per tabletIndication s:Pain Take 1 tablet by mouth every 6 (six) hours as needed for pain for up to 7 days 28 tablet 07/29/2020 08/05/2020 ondansetron (ZOFRAN) 4 mg tablet Take 1 tablet (4 mg total) by mouth every 6 (six) hours as needed for nausea or vomiting for up to 14 days 30 tablet 07/29/2020 08/13/2020 documented as of this encounter Ordered Prescriptions Prescription Sig Dispense Quantity Refills Last Filled Start Date End Date HYDROcodone-acetam inophen (NORCO) 5-325 mg per tabletIndications: Pain Take 1 tablet by mouth every 6 (six) hours as needed for pain for up to 7 days 28 tablet 07/29/2020 0 ondansetron (ZOFRAN) 4 mg tablet Take 1 tablet (4 mg total) by mouth every 6 (six) hours as needed for nausea or vomiting for up to 14 days 30 tablet 07/29/2020 0 docusate sodium (Colace) 100 mg capsuleIndications :constipation Take 1 capsule (100 mg total) by mouth 2 (two) times a day for 14 days 28 capsule 2 07/29/2020 0 documented in this encounter Discharge Disposition Disposition Code Departure Means Destination Discharge to home or self care documented in this encounter H&P Notes * Robson Osullivan MD - 07/29/2020 8:02 AM CDT I have reviewed the H&P, examined the patient, and endorse the findings as written. Plan of Care : Based on the above findings, I consider Barbara Fitzgerald to be an acceptable risk for : Procedure(s): EXCISION MASS RIGHT HIP REGION Source Note - Robson Osullivan MD - 07/14/2020 11:30 AM CDT Images from the original note were not included. Surgery Consult Subjective: Patient Name: Barbara Fitzgerald Date of Visit: 07/14/20 HPI: Barbara Fitzgerald is a 35 y.o. female presenting for surgical evaluation of right buttock pain. The patient had a traumatic fall on the gluteal region a little over a year ago. Since that time the area had always been somewhat painful and she had noticed a hard area in the location. Not too long ago she had another fall down the steps and landed on the same area. The pain has intensified since that time period it is worsened with any kind of pressure or movement of the area. Nothing is noted to relieve it. Chief Complaint: Mass (Right buttocks) Referred by: Meir Fallon MD Allergies as of 07/14/2020 - Reviewed 07/14/2020 Allergen Reaction Noted ??? Erythromycin base Nausea only and Vomiting 07/14/2020 ??? Meperidine Vomiting 07/14/2020 Current Outpatient Medications: ??? ketorolac (TORADOL) 10 mg tablet History reviewed. No pertinent past medical history. Past Surgical History: Procedure Laterality Date ??? CERVIX SURGERY 2007 [place] Family History Problem Relation Age of Onset ??? Heart disease Mother ??? Cancer Maternal Grandmother ??? Diabetes Maternal Grandfather ??? Heart disease Maternal Grandfather ??? Stroke Maternal Grandfather Social History Socioeconomic History ??? Marital status: Single Spouse name: Not on file ??? Number of children: Not on file ??? Years of education: Not on file ??? Highest education level: Not on file Occupational History ??? Not on file Social Needs ??? Financial resource strain: Not on file ??? Food insecurity Worry: Not on file Inability: Not on file ??? Transportation needs Medical: Not on file Non-medical: Not on file Tobacco Use ??? Smoking status: Former Smoker Packs/day: 0.50 Years: 10.00 Pack years: 5.00 Quit date: 11/13/2018 Years since quittin.6 Substance and Sexual Activity ??? Alcohol use: Yes ??? Drug use: Never ??? Sexual activity: Not on file Lifestyle ??? Physical activity Days per week: Not on file Minutes per session: Not on file ??? Stress: Not on file Relationships ??? Social connections Talks on phone: Not on file Gets together: Not on file Attends bahai service: Not on file Active member of club or organization: Not on file Attends meetings of clubs or organizations: Not on file Relationship status: Not on file ??? Intimate partner violence Fear of current or ex partner: Not on file Emotionally abused: Not on file Physically abused: Not on file Forced sexual activity: Not on file Other Topics Concern ??? Not on file Social History Narrative ??? Not on file Review of Systems Constitutional: Negative for activity change. HENT: Negative for hearing loss and sore throat. Eyes: Negative for visual disturbance. Respiratory: Negative for cough and shortness of breath. Cardiovascular: Negative for chest pain. Gastrointestinal: Negative for abdominal pain, constipation, diarrhea, nausea and vomiting. Genitourinary: Negative for dysuria. Musculoskeletal: Negative for back pain. Neurological: Negative for dizziness and syncope. Psychiatric/Behavioral: Negative for agitation and confusion. Imaging: CT scan of the pelvis was reviewed. There is a soft tissue density within the right gluteal region that was 4 x 3 cm. There is some mild fat stranding around this area. Objective: Vitals BP 126/81 (BP Location: Right arm, Patient Position: Sitting) Pulse 90 Temp 36.2 ??C (97.1 ??F) Ht 162.6 cm (5' 4 ) Wt 78.2 kg (172 lb 8 oz) LMP 07/03/2020 BMI 29.61 kg/m?? Physical Exam Constitutional: The patient is oriented to person, place, and time. They appear well-nourished. No distress. HENT: Head: Normocephalic and atraumatic. Eyes: Pupils are equal, round, and reactive to light. Neck: No thyromegaly present. Cardiovascular: Normal rate and regular rhythm. Pulmonary/Chest: Effort normal and breath sounds normal. Abdominal: Soft. non distended. There is no tenderness. No hernia. Genitourinary: Rectum normal. Musculoskeletal: Normal range of motion. Palpable area of tenderness in the superior aspect of the right gluteal region. No overlying erythema Neurological: alert and oriented to person, place, and time. Skin: Skin is warm and dry. Psychiatric: normal mood and affect. Assessment/Plan Diagnoses and all orders for this visit: Mass of right hip region (Primary) Assessment & Plan: The patient may have had some fat [...] the bottom up. She is in understanding. Robson Osullivan MD 2:00 PM 07/14/2020 documented in this encounter Miscellaneous Notes * Op Note - Robson Osullivan MD - 07/29/2020 10:00 AM CDT Images from the original note were not included. NAME: Barbara Fitzgerald DATE OF : 1985 SURGEON: Robson Osullivan MD MANAGER RN:Primary Teaching Assistant: Nida Terrazas RN Physician Laborer Cement Gun Placing: Sofia Maldonado NP Scrub: ST Chata DATE OF SURGERY: 07/29/2020 PREOP DIAGNOSES: Right gluteal subcutaneous mass POSTOP DIAGNOSES: Right gluteal subcutaneous mass PROCEDURE: Excision of right gluteal subcutaneous mass (6 x 4 x 3 cm) INDICATIONS OF PROCEDURE: The patient is a 35-year-old female with traumatic fall to the right gluteal region. Ever since that occurred she noticed a firm area in that location. It was slowly improving until she had a no other injury to that area where she again fell on it. Since then it has progressively worsened causing discomfort with any pressure over the area. It felt as if there was some firm nodule perhaps calcified fat from the fall. Given the discomfort she was set up for excision. DETAILS OF PROCEDURE: After informed consent was obtained the patient was taken to the operating room and placed prone onthe operating table. Conscious sedation was achieved. SCD boots were applied to bilateral lower extremities. Perioperative antibiotics were administered and a preoperative time-out completed. The patient was then prepped and draped in standard sterile fashion. Local anesthetic was used to anesthetize the skin. A marking pen was used to demarcate the borders of the mass. Using a 15 blade scalpel an 8 cm incision overlying the mass was made at the superior portion of the gluteal muscles. Bovie cautery was used to circumferentially free the lesion from the surrounding subcutaneous tissue. It wasvery firm and easily defined from the surrounding subcutaneous tissue. As we continued our dissection circumferentially it was clear that this had invaded into the fascia and underlying gluteal muscle. We slowly again dissected off of this with cautery taking the least amount of fashion muscle as possible. It was difficult to tell if this was just a very sizable lipoma or perhaps a hematoma cavity as it was completely encased in subcutaneous fat. Once we had freed it from the underlying fasciaand muscle we continued our dissection until it was completely freed at the base. We then freed some further edges in the apex until the lesion was completely freed. It measured roughly 6 x 4 x 3 cm.It was sent off for permanent section. At this time the cavity was copiously irrigated with saline.Hemostasis was achieved with cautery. The deep subcutaneous tissue was reapproximated with a running 0 Vicryl stitch. A more superficial layer was closed with 3 0 Vicryl sutures taking care not to pucker the skin. A 7 Congolese flat DAREN drain was then placed and brought out through a stab incision nearthe right hip region. This was secured in place with a 3 0 nylon suture. The subcuticular layer wasthen reapproximated with interrupted 3 0 Vicryl stitches. Dermabond was then applied. Our incision and drain were covered with 4 x 4 gauze and Medipore tape. The patient was awoken from anesthesia and transferred to recovery in stable condition. At the end of the procedure all sponge, needle and instrument counts were reported to be correct x2 at the end of the case. ANESTHESIA: General. Plus 38 cc of 0.25% Marcaine with epinephrine COMPLICATIONS: None BLOOD LOSS: 10 cc SPECIMEN: Right gluteal subcutaneous mass Robson Osullivan MD 07/29/2020 11:24 AM * Perioperative Nursing Note - Oanh Duff RN - 07/24/2020 3:11 PM CDT covid screening 07/27/2020 * Pre-Procedure Instructions - Oanh Duff RN - 07/24/2020 3:10 PM CDT We are pleased that you and your doctor have chosen [facility] for your surgery. We hope that the following information will help make your visit a pleasant one. Surgery Date: 07/29/2020 Before your surgery: ?? Notify your doctor of ANY change in your health such as a cold, sore throat, fever, any infection or a change in the problem for which you are having your surgery. ?? Follow any instructions given to you by your doctor or surgeon. Check with your doctor if you need to STOP taking: ?? Aspirin (ordered by your doctor) ?? Plavix ?? Coumadin One week before surgery STOP taking: ?? All herbal supplements ?? Aspirin (not ordered by your doctor) ?? Aleve, Advil, Motrin, Ibuprofen, or other similar medications (Tylenol is okay). 24 hours before your surgery: ?? No smoking or alcoholic drinks. ?? Stop taking your: Metformin/Glucophage. Night before your surgery: ?? Do not eat or drink anything after midnight. ?? Take only half of your normal PM Insulin dose. ?? Follow surgeon's instructions for anti-bacterial shower night before and morning of surgery. Day of surgery: ?? Do not swallow any water when you brush your teeth. ?? Do not take your AM insulin dose or any diabetic medicines ?? ONLY take these pills with a tiny sip of water. No current outpatient medications on file. ?? Use no make-up, nail solomon islander, lotions, oils or powders on your skin. ?? Wear comfortable clothes that will not be tight in the area of your surgery. ?? Leave all valuables and jewelry (including all body piercing jewelry) at home. ?? If you use a CPAP machine, please bring it with you to wear after your surgery. ?? Please bring your a photo ID and insurance cards with you. ?? Check in at the Registration Desk. ?? If you are 17 years old or younger, a parent or guardian must come with you. After your Outpatient Surgery: ?? You must have a responsible adult to drive you home, you will not be allowed to drive or take a cab home. ?? We recommend you have someone stay with you for 24 hours after your surgery. What to bring if you are spending the night with us: ?? Bring toiletry items such as: robe, slippers, toothbrush, toothpaste, brush or comb. ?? Bring contact lens, hearing aids, glass cases and denture container if you use any of these items. ?? The hospital will provide you with a gown. Questions or concerns: ?? If you have any questions or concerns regarding your procedure, contact your surgeon as soon as possible. ?? If you have questions regarding your Pre-Admission Testing, please call us. We can be reached atthe number posted at the top of the page. documented in this encounter Plan of Treatment Not on file documented as of this encounter Procedures Procedure Name Priority Date/Time Associated Diagnosis Comments SURGICAL PATHOLOGY Routine 07/29/2020 12 :08 PM CDT Mass of right hip region EXCISION CYST/LIPOMA/LESION 07/29/2020 9:45 AM CDT Mass of right hip region EGFR STAT 07/29/2020 8:22 AM CDT DIFFERENTIAL AUTO STAT 07/29/2020 8:2 2 AM CDT CBC WITH AUTO DIFFERENTIAL STAT 07/29/2020 8:22 AM CDT ABO/RH STAT 07/29/2020 8:22 AM CDT ANTIBODY SCREEN STAT 07/29/2020 8:22 AM CDT TYPE AND SCREEN STAT 07/29/2020 8:22 AM CDT BASIC METABOLIC PANEL STAT 07/29/2020 8:22 AM CDT POCT HCG, URINE Routine 07/29/2020 8:13 AM CDT documented in this encounter Results * Surgical pathology (07/29/2020 12:08 PM CDT) Tissue (Soft Tissue Mass - Simple Excision) 07/29/2020 10:16 AM CDT Narrative PATHOLOGY [facility] ([facility]) - 08/03/2020 11:10 AM CDT EPIC results best viewed via link to PDF [facility] Department of Pathology [address] [place] [address] Final Report Patient Name: ??BARBARA FITZGERALD Address: ??[address] , ??[place], [place] ??[id number] Gender: ??F : ??1985 (Age: 35) Service: ??Surgery Location: ??[facility] #: ??[id number] Patient Type: ??[facility] SDS Accession # ?[id number] Taken: ??07/29/2020 Received: ??07/29/2020 Accessioned: ??07/29/2020 Reported: ??08/03/2020 Physician(s):Robson Osullivan MD Diagnosis: Subcutaneous gluteal mass, excisional biopsy: ? - Soft tissue with marked fibrosis, chronic and granulomatous inflammation, fat necrosis and scattered granulomas. - Special stains negative for fungal elements and acid fast bacilli. - Findings compatible with repeated history of trauma to this area. Meir Frost M.D. Report Electronically Reviewed and Signed Out By ??Meir Frost M.D. ??08/03/2020 11:10:15 Specimen(s) Received: A: Subcutaneous gluteal mass Microscopic Description: Sections from the gluteal mass show marked fibrosis with predominantly mixed chronic and granulomatous inflammation seen throughout the subcutaneous tissues. ??There is fat necrosis as well as occasional granulomas present. ??No significant cytologic atypia or evidence of malignancy is seen. ??Additionally, to assess for a possible infectious etiology, a small panel of special stains are performed on block A2. A GMS stain shows no evidence of fungal elements. ??An AFB stain shows no evidence of acid fast bacilli. ??The findings are consistent with the patient's history of trauma in this area and likely represent an involuting/healing abscess cavity. Clinical History: Mass of right hip region. ??Excision of right gluteal subcutaneous mass. ?? Gross Description: The specimen is submitted in a single container labeled Barbara Fitzgerald and subcutaneous gluteal mass . ??It is two pieces of partially encapsulated fat measuring 7 x 4 x 2 and 7.5 x 5 x 3 cm. ??The cut surfaces of both show necrosis and what appears to be a portion of an abscess cavity on one side running the full measure of the smaller piece. ??The surrounding tissue has anthony brown discolorations consistent with fat necrosis and otherwise soft yellow homogeneous fat. ??Represented in six cassettes. ??Elena Shukla M.D./Melissa Wallace REPORT IMAGES AND SCANNED DOCUMENTS, IF INCLUDED, ONLY VIEWABLE IN PDF VERSION OF REPORT The performance characteristics of some immunohistochemical stains, fluorescence in-situ hybridization tests and immunophenotyping by flow cytometry cited in this report (if any) were determined by the Surgical Pathology Department at [facility] as part of an ongoing clinical quality manager program and in compliance with federally mandated regulations drawn from the Clinical Laboratory Improvement Act of 1988 (CLIA '88). ??Some of these tests rely on the use of analyte specific reagents and are subject to specific labeling requirements by the US Food and Drug Administration. ??Such diagnostic tests may only be performed in a facility that is certified by the Department of Health and Human Services as a high complexity laboratory under CLIA '88. The FDA has determined that such clearance or approval is not necessary. ??This test is used for clinical purposes. ??It should not be regarded as investigational or for research. ??Nevertheless, federal rules concerning the medical use of analyte specific reagents require that the following disclaimer be attached to the report: This test was developed and its performance characteristics determined by the Surgical Pathology Department [facility]. ??It has not been cleared or approved by the U. S. Food and Drug Administration. Robson Osullivan MD LAB PATHOLOGY OR DERABLES Final Result PATHOLOGY [facility] [address] [place] [address] * eGFR (07/29/2020 8:22 AM CDT) eGFR 125 mL/min/1.7 3 m2 [facility] Comment: Interpretive Data Reference Interval Normal ?>/= 90 mL/min/1.73m2 Mildly decreased* ? 60 - 89 mL/min/1.73m2 Mildly to moderately decreased ?45 - 59 mL/min/1.73m2 Moderately to severely decreased ??30 - 44 mL/min/1.73m2 Severely decreased ?15 - 29 mL/min/1.73m2 Kidney Failure ?< 15 ??mL/min/1.73m2 *Relative to young adult level If -Thai multiply value by 1.16. Estimated glomerular filtration rate is determined by the CKD-EPI equation recommended by the National Kidney Foundation (KDIGO 2012 Clinical Practice Guideline for the Evaluation and Management of Chronic Kidney Disease. Kidney Intnl Suppl Nov 2012;3:1). The CKD-EPI equation should not be used for patients with unstable renal function and has not been validated in children and those over 70. Current interpretive data was last reviewed 2016. Blood specimen (specimen) 07/29/2020 8:22 AM CDT 07/29/2020 8:24 AM CDT Robson Osullivan MD LAB BLOOD ORDERA BLES Final Result [facility] [address] [facility] Department [place] [address] * Differential, auto (07/29/2020 8:22 AM CDT) Neutrophil abs 4.0 1.7 - 6.5 K/cumm [facility] ([facility]) Imm gran abs 0.0 0.0 - 0.1 K/cumm [facility] ([facility]) Lymphocyte abs 1.6 0.8 - 3.3 K/cumm [facility] ([facility]) Monocyte abs 0.4 0.2 - 0.8 K/cumm [facility] ([facility]) Eosinophil abs 0.2 0.0 - 0.5 K/cumm [facility] ([facility]) Basophil abs 0.1 0.0 - 0.1 K/cumm [facility] ([facility]) Neutrophil pct 63.1 % [facility] ([facility]) Comment: Interpretive Data Percent cell count reference ranges are not reported, since discordance with absolute values may lead to misinterpretation of CBC data. Current Interpretive Data was last revised on 2018. Imm gran pct 0.2 % [facility] ([facility] Comment: Interpretive Data Percent cell count reference ranges are not reported, since discordance with absolute values may lead to misinterpretation of CBC data. Current Interpretive Data was last revised on 2018. Lymphocyte pct 25.9 % [facility] ([facility] Comment: Interpretive Data Percent cell count reference ranges are not reported, since discordance with absolute values may lead to misinterpretation of CBC data. Current Interpretive Data was last revised on 2018. Monocyte pct 6.8 % [facility] ([facility] Comment: Interpretive Data Percent cell count reference ranges are not reported, since discordance with absolute values may lead to misinterpretation of CBC data. Current Interpretive Data was last revised on 2018. Eosinophil pct 3.2 % [facility] ([facility] Comment: Interpretive Data Percent cell count reference ranges are not reported, since discordance with absolute values may lead to misinterpretation of CBC data. Current Interpretive Data was last revised on 2018. Basophil pct 0.8 % [facility] ([facility] Comment: Interpretive Data Percent cell count reference ranges are not reported, since discordance with absolute values may lead to misinterpretation of CBC data. Current Interpretive Data was last revised on 2018. Blood specimen (specimen) 07/29/2020 8:22 AM CDT 07/29/2020 8:24 AM CDT us Robson Osullivan MD LAB BLOOD ORDERA BLES Final Result [facility] ([facility] Department [place] [address] * Antibody screen (07/29/2020 8:22 AM CDT) Celso, indirect, Gel Interpretation Negative ABSC [facility] ([facility]) Blood specimen (specimen) 07/29/2020 8:22 AM CDT 07/29/2020 8:24 AM CDT Narrative [facility] ([facility]) - 07/29/2020 9:03 AM CDT Has the patient had Daratumumab or Isatuximab in the past 6 months?->Unknown Robson Osullivan MD LAB BLOOD BANK T EST ORDERABLES Final Result Performing Organization Address City/[facility] CENTER Co de Phone Number [facility] ([facility]) 1 [facility] [place] [address] * ABO/Rh (07/29/2020 8:22 AM CDT) ABO/Rh A Positive [facility] ([facility]) Blood specimen (specimen) 07/29/2020 8:22 AM CDT 07/29/2020 8:24 AM CDT Narrative [facility] ([facility]) - 07/29/2020 8:46 AM CDT Has the patient had Daratumumab or Isatuximab in the past 6 months?->Unknown Robson Osullivan MD LAB BLOOD BANK T EST ORDERABLES Final Result Performing Organization Address [facility] de Phone Number [facility] ([facility]) 1 [facility] [place] [address] * CBC with auto differential (07/29/2020 8:22 AM CDT) WBC 6.3 3.8 - 9.9 K/cumm [facility] ([facility]) Hgb 12.7 11.9 - 15.5 g/dL [facility] ([facility]) Hct 38.9 35.6 - 45.5 % [facility] ([facility]) Plt 292 150 - 400 K/cumm [facility] ([facility]) MPV 9.9 9.1 - 12.3 fL [facility] ([facility]) RBC 4.65 3.90 - 5.20 M/cumm [facility] ([facility]) MCV 83.7 81.3 - 96.4 fL [facility] ([facility]) MCH 27.3 27.1 - 33.3 pg [facility] ([facility]) MCHC 32.6 32.3 - 35.7 g/dL [facility] ([facility]) RDW CV 12.7 11.1 - 14.9 % [facility] ([facility]) RDW SD 38.8 35.7 - 48.1 fL [facility] NRBC abs 0.00 0.00 - 0.01 K/cumm [facility] ([facility]) Blood specimen (specimen) 07/29/2020 8:22 AM CDT 07/29/2020 8:24 AM CDT us Robson Osullivan MD LAB BLOOD ORDERA BLES Final Result [facility] ([facility]) 1 [facility] Department [place] [address] * (ABNORMAL) Basic metabolic panel (07/29/2020 8:22 AM CDT) Sodium 136 135 - 145 mmol/L [facility] Potassium, pl 4.0 3.3 - 4.9 mmol/L [facility] Chloride 103 97 - 110 mmol/L [facility]) CO2 22 22 - 32 mmol/L [facility]) Anion gap 11 2 - 15 mmol/L [facility] BUN 14 8 - 25 mg/dL [facility] Creatinine 0.49(L) 0.60 - 1.10 mg/dL [facility] ([facility]) Glucose 96 70 - 199 mg/dL [facility] Comment: Interpretive Data Fasting glucose >/= 126 mg/dl is diagnostic for diabetes. ?? Fasting is defined as no caloric intake for at least 8 hours. Fasting glucose between 100 mg/dl to 125 mg/dl is diagnostic of prediabetes. In a patient with classic symptoms of hyperglycemia or hyperglycemic crisis, a random glucose >/= 200 mg/dl is diagnostic for diabetes. In the absence of unequivocal hyperglycemia, results should be confirmed by repeat testing. The classification and Diagnosis of Diabetes Diabetes Care 2017;40 (Suppl. 1):S11. Current interpretive data was last revised 2017. Calcium 9.5 8.5 - 10.3 mg/dL [facility] ([facility]) Blood specimen (specimen) 07/29/2020 8:22 AM CDT 07/29/2020 8:24 AM CDT Robson Osullivan MD LAB BLOOD ORDERA BLES Final Result [facility] ([facility]) 1 [facility] Department [place] [address] * POCT hCG, urine (07/29/2020 8:13 AM CDT) HCG, ur, POC Negative Lot Number [id number] QC Backgroud Clear Acceptable QC Control Line Acceptable Urine 07/29/2020 8:13 AM CDT Robson Osullivan MD POINT OF CARE TE ST ORDERABLES Final Result documented in this encounter Visit Diagnoses Diagnosis Mass of right hip region- Primary Mass of right hip region documented in this encounter Admitting Diagnoses Diagnosis Mass of right hip region documented in this encounter Administered Medications Inactive Administered Medications - up to 3 most recent administrations Medication Order MAR Action Action Date Dose Rate Site acetaminophen (TYLENOL) tablet 1,000 mg 1,000 mg, oral, Once, On Mon07/29/20 at 0830, For 1 dose, Pre-Op, Indications: Pre-Emptive AnalgesiaIndications:Pre-Emp tive Analgesia Given 07/29/2020 8:19 AM CDT 1,000 mg bupivacaine-EPINEPHrine (MARCAINE with EPI) 0.25 %-1:200,000 preservative free injection As needed, Starting on Mon07/29/20 at 1007, Intra-Op Given 07/29/2020 10:23 AM CDT 38 mL Surgical Site celecoxib (CeleBREX) capsule 200 mg 200 mg, oral, Once, On Mon07/29/20 at 0830, For 1 dose, Pre-Op, Indications: Pre-Emptive AnalgesiaIndications:Pre-Emp tive Analgesia Given 07/29/2020 8:19 AM CDT 200 mg HYDROcodone-acetaminophen (NORCO) 5-325 mg per tablet 1 tablet 1 tablet, oral, Once, On Mon07/29/20 at 1245, For 1 dose, Phase I & Post-op Floor, Indications: PainIndications:Pain Given 07/29/2020 12:25 PM CDT 1 tablet HYDROmorphone (DILAUDID) injection 0.2 mg 0.2 mg, intravenous, Administer over 2 Minutes, Every 10 min PRN, 1st line for pain, Starting on Mon07/29/20 at 1103, Phase I, Switch to 2nd line analgesic order if pain is uncontrolled or increasing after 2 doses. Notify Anesthesiologist if total PACU dose reaches 2 mg and pain score 5/10 or more., Indications: PainIndications:Pain Given 07/29/2020 11:24 AM CDT 0.2 mg Given 07/29/2020 11:14 AM CDT 0.2 mg HYDROmorphone (DILAUDID) injection 0.4 mg 0.4 mg, intravenous, Administer over 2 Minutes, Every 10 min PRN, 2nd line for pain, Starting on Mon07/29/20 at 1103, Phase I, May administer 10 mintes after 2nd dose of 1st line analgesic agent for uncontrolled or increasing pain. Revert to 1st line dose if POSS of 3. Notify Anesthesiologist if total PACU dose reaches 2 mg and pain score 5/10 or more., Indications: PainIndications:Pain Given 07/29/2020 11:44 AM CDT 0.4 mg Given 07/29/2020 11:34 AM CDT 0.4 mg Lactated Ringer's (LR) infusion 30 mL/hr, intravenous, Continuous, Starting on Mon07/29/20 at 0830, Pre-Op New Bag 07/29/2020 12:03 PM CDT 30 mL/hr 30 mL/hr Lactated Ringer's (LR) infusion 30 mL/hr, intravenous, Continuous, Starting on Mon07/29/20 at 0830, Pre-Op Rate/Dose Verify 07/29/2020 9:45 AM CDT New Bag 07/29/2020 8:19 AM CDT 30 mL/hr 30 mL/hr sodium chloride 0.9 % irrigation As needed, Starting on Mon07/29/20 at 1007, Intra-Op Given 07/29/2020 10:07 AM CDT 500 mL Surgical Site documented in this encounter Discontinued Medications Medication Sig Discontinue Reason Start Date End Da te ketorolac (TORADOL) 10 mg tablet Take 1 tablet (10 mg total) by mouth 4 (four) times a day as needed for pain Take with food. 07/10/2020 07/24/2020 documented as of this encounter Historical Medications * This list may reflect changes made after this encounter. valACYclovir (VALTREX) 500 mg tablet Take 500 mg by mouth daily 04/28/2020 added in this encounter Active and Recently Administered Medications Times are shown in CDT. Scheduled Medication Order 07/27/2020 07/28/2020 07/29/2020 acetaminophen (TYLENOL) tablet 1,000 mg (COMPLETED) 1,000 mg, oral, Once, On Mon07/29/20 at 0830, For 1 dose, Pre-Op, Indications: Pre-Emptive Analgesia 0819 (Given - Provid er: Rafaela Leon RN) celecoxib (CeleBREX) capsule 200 mg (COMPLETED) 200 mg, oral, Once, On Mon07/29/20 at 0830, For 1 dose, Pre-Op, Indications: Pre-Emptive Analgesia 0819 (Given - Provid er: Rafaela Leon RN) HYDROcodone-acetaminophen (NORCO) 5-325 mg per tablet 1 tablet (COMPLETED) 1 tablet, oral, Once, On Mon07/29/20 at 1245, For 1 dose, Phase I & Post-op Floor, Indications: Pain 1225 (Given - Provid er: Rafaela Leon RN) Continuous Medication Order 07/27/2020 07/28/2020 07/29/2020 Lactated Ringer's (LR) infusion 30 mL/hr, intravenous, Continuous, Starting on Mon07/29/20 at 0830, Pre-Op 0945 (Canceled Entry - Provider: Cuca Estrada CRNA)1203 (New Bag - Provider: Barbara Daniels RN) Lactated Ringer's (LR) infusion 30 mL/hr, intravenous, Continuous, Starting on Mon07/29/20 at 0830, Pre-Op 0819 (New Bag - Prov ider: Rafaela Leon RN)0945 (Rate/Dose Verify - Provider: Ray Kumar MD)1100 (Anesthesia Volume Adjustment - Provider: Ray Kumar MD) PRN Medication Order 07/27/2020 07/28/2020 07/29/2020 bupivacaine-EPINEPHrine (MARCAINE with EPI) 0.25 %-1:200,000 preservative free injection (CANCELED) As needed, Starting on Mon07/29/20 at 1007, Intra-Op 1023 (Given - Provid er: Robson Osullivan MD) HYDROmorphone (DILAUDID) injection 0.2 mg (CANCELED) 0.2 mg, intravenous, Administer over 2 Minutes, Every 10 min PRN, 1st line for pain, Starting on Mon07/29/20 at 1103, Phase I, Switch to 2nd line analgesic order if pain is uncontrolled or increasing after 2 doses. Notify Anesthesiologist if total PACU dose reaches 2 mg and pain score 5/10 or more., Indications: Pain 1114 (Given - Provid er: Barbara Daniels RN)1124 (Given - Provider: Barbara Daniels RN) HYDROmorphone (DILAUDID) injection 0.4 mg (CANCELED) 0.4 mg, intravenous, Administer over 2 Minutes, Every 10 min PRN, 2nd line for pain, Starting on Mon07/29/20 at 1103, Phase I, May administer 10 mintes after 2nd dose of 1st line analgesic agent for uncontrolled or increasing pain. Revert to 1st line dose if POSS of 3. Notify Anesthesiologist if total PACU dose reaches 2 mg and pain score 5/10 or more., Indications: Pain 1134 (Given - Provid er: Barbara Daniels RN)1144 (Given - Provider: Barbara Daniels RN) sodium chloride 0.9 % irrigation (CANCELED) As needed, Starting on Mon07/29/20 at 1007, Intra-Op 1007 (Given - Provid er: Robson Osullivan MD - Comment: irrigation and cleanup on sterile field) documented in this encounter Orders Medications Ordered That Billy ht Not Have Been Administered Count Last Ordered Date First Ordered Date fentaNYL (SUBLIMAZE) 50 mcg/ mL preservative free injection - ADS Override Pull 1 07/29/2020 midazolam (VERSED) 1 mg/mL p reservative free injection - ADS Override Pull 1 07/29/2020 naloxone (NARCAN) 0.4 mg/mL injection 0.04-0.4 mg 1 07/29/2020 ondansetron (ZOFRAN) injection 4 mg 1 07/29 sodium chloride 0.9% flush 0.5-20 mL 2 07/08 documented in this encounter Care Teams Card Checker Relationship Specialty Start Date End Date Meir Fallon MD PCP - General 07/10/20 documented as of this encounter
--- OUTSIDE RECORDS SUMMARY | 2024-11-08 19:25 | XMS_ITS | Encounter Summary ---
Author Organization [facility] Healthcare Address [address] [place] [id number] Care Team Providers Care Contact Center Consultant Name Role Phone Meir Fallon MD Primary Care Provider [phone] [phone] Reason for Visit * Reason Comments Back Pain Encounter Details Date Type Department Care Team (Late st Contact Info) Description 07/10/2020 10:04 AM CDT - 07/10/2020 1:51 PM CDT Emergency [facility] Emergency Department [address] [place] [address] Orlando Nava MD [address] [place] [id number] Hematoma (Primary Dx) Discharge Disposition: Discharge to home or self care Social History Tobacco Use Types Packs/Day Years Used Date Smoking Tobacco: Never Assessed Comments No Sex and Gender Information Value Date Recorded Sex Assigned at Not on file 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 Gender Identity Not on file Sexual Orientation Not on file documented as of this encounter Last Filed Vital Signs Vital Sign Reading Time Taken Comments Blood Pressure 128/80 07/10/2020 1:50 PM CDT Pulse 82 07/10/2020 1:50 PM CDT Temperature 36.8 ??C (98.2 ??F) 07/10/2020 1:50 PM CD T Respiratory Rate 16 07/10/2020 1:50 PM CDT Oxygen Saturation 99% 07/10/2020 1:50 PM CDT Inhaled Oxygen Concentration - - Weight 77.1 kg (170 lb) 07/10/2020 10:20 AM CDT Height 162.6 cm (5' 4 ) 07/10/2020 10:20 AM CDT Body Mass Index 29.18 07/10/2020 10:20 AM CDT documented in this encounter Discharge Diagnoses Diagnosis Contusion of lower back and pelvis, initial encounter - CONTUSION OF LOWER BACK AND PELVIS, INITIAL ENCOUNTER Fall (on) (from) unspecified stairs and steps, initial encounter - FALL (ON) (FROM) UNSPECIFIED STAIRS AND STEPS, INITIAL ENCOUNTER Activity, unspecified - ACTIVITY, UNSPECIFIED Other specified places as the place of occurrence of the external cause - OTHER SPECIFIED PLACES THE PLACE OF OCCURRENCE OF THE EXTERNAL CAUSE Unspecified external cause status - UNSPECIFIED EXTERNAL CAUSE STATUS documented in this encounter Discharge Instructions * Discharge Instructions* Orlando Nava MD - 07/10/2020 1:08 PM CDT Take pain medicine as needed. Follow-up with Dr. Osullivan. You have a cyst on your kidney which will need follow-up with your primary care doctor. * Attachments The following attachments cannot be sent through Care Everywhere. * Hematoma (AfterCare(R) Instructions(ER/ED)) (Kyrgyz) documented in this encounter Medications at Time of Discharge valACYclovir (VALTREX) 500 mg tablet Take 500 mg by mouth daily 04/28/2020 ketorolac (TORADOL) 10 mg tablet Take 1 tablet (10 mg total) by mouth 4 (four) times a day as needed for pain Take with food. 20 tablet 07/10/2020 07/24/2020 documented as of this encounter Ordered Prescriptions Prescription Sig Dispense Quantity Refills Last Filled Start Date End Date ketorolac (TORADOL) 10 mg tablet Take 1 tablet (10 mg total) by mouth 4 (four) times a day as needed for pain Take with food. 20 tablet 07/10/2020 07/24/2020 documented in this encounter Discharge Disposition Disposition Code Departure Means Destination Discharge to home or self care documented in this encounter ED Notes * Piotr Calzada NP - 07/10/2020 11:09 AM CDT HPI Chief Complaint Patient presents with ??? Back Pain 35-year-old female patient with no pre medical history reports a bump to right medial gluteal region after falling on 06/03/2020, on the edge of a stair step. Patient reports she had an additional injury approximately 3 years ago in the same location, without formation of the bump patient reports that she was evaluated after her most recent fall, with a negative x-ray, but now has increasing pain that she describes is sharp shooting pain with tingling and burning to the right gluteal area. Patient denies medical history, denies medication usage. Denies shortness of breath, difficulty breathing, fever, chills. Denies loss of consciousness, denies striking head neck or back. History provided by: Patient Patient History There are no active problems to display for this patient. History reviewed. No pertinent past medical history. No past surgical history on file. History reviewed. No pertinent family history. Social History Tobacco Use ??? Smoking status: Not on file Substance Use Topics ??? Alcohol use: Not on file ??? Drug use: Not on file Social History Social History Narrative ??? Not on file Review of Systems Review of Systems Constitutional: Negative for chills and fever. HENT: Negative for ear pain and sore throat. Eyes: Negative for pain and visual disturbance. Respiratory: Negative for cough and shortness of breath. Cardiovascular: Negative for chest pain and palpitations. Gastrointestinal: Negative for abdominal pain and vomiting. Genitourinary: Negative for dysuria and hematuria. Musculoskeletal: Negative for arthralgias and back pain. Skin: Negative for color change and rash. + buttocks bump Neurological: Negative for seizures and syncope. All other systems reviewed and are negative. Physical Exam ED Triage Vitals [07/10/20 1020] Temp Pulse Resp BP SpO2 36.9 ??C (98.4 ??F) 91 18 132/86 97 % Temp src Heart Rate Source Patient Position BP Location FiO2 (%) Temporal -- -- -- -- Physical Exam Vitals signs and nursing note reviewed. Constitutional: General: She is not in acute distress. Appearance: Normal appearance. She is well-developed. She is not ill-appearing, toxic-appearing or diaphoretic. HENT: Head: Normocephalic and atraumatic. Right Ear: Tympanic membrane, ear canal and external ear normal. Left Ear: Tympanic membrane, ear canal and external ear normal. Nose: Nose normal. Mouth/Throat: Lips: Cat[place]. Mouth: Mucous membranes are moist. Pharynx: No pharyngeal swelling, oropharyngeal exudate, posterior oropharyngeal erythema or uvula swelling. Tonsils: No tonsillar exudate or tonsillar abscesses. Eyes: General: Lids are normal. Extraocular Movements: Extraocular movements intact. Conjunctiva/sclera: Conjunctivae normal. Pupils: Pupils are equal, round, and reactive to light. Neck: Musculoskeletal: Full passive range of motion without pain, normal range of motion and neck supple.Normal range of motion. No edema, erythema, neck rigidity, crepitus, injury, pain with movement, torticollis, spinous process tenderness or muscular tenderness. Trachea: Trachea and phonation normal. Meningeal: Brudzinski's sign and Kernig's sign absent. Cardiovascular: Rate and Rhythm: Normal rate and regular rhythm. Heart sounds: Normal heart sounds, S1 normal and S2 normal. No murmur. Pulmonary: Effort: Pulmonary effort is normal. No respiratory distress. Breath sounds: Normal breath sounds. Abdominal: General: Bowel sounds are normal. There is no distension. Palpations: Abdomen is soft. There is no mass. Tenderness: There is no abdominal tenderness. There is no right CVA tenderness, left CVA tenderness, guarding or rebound. Hernia: No hernia is present. Musculoskeletal: Normal range of motion. Comments: No TTP to C-spine, T-spine, L-spine. No step-off, no bony deformity. Skin: General: Skin is warm and dry. Capillary Refill: Capillary refill takes less than 2 seconds. Comments: Approximate 2 cm x 2 cm palpable mass to right gluteal area, with no overlying erythema, no bruising, no swelling. Neurological: General: No focal deficit present. Mental Status: She is alert and oriented to person, place, and time. Psychiatric: Mood and Affect: Mood normal. Behavior: Behavior normal. Behavior is cooperative. Thought Content: Thought content normal. Judgment: Judgment normal. MDM Medical Decision Making Differential Diagnosis or Management Options: Differential diagnosis includes hematoma, sebaceous cyst, abscess. Low suspicion for abscess, sebaceous cyst due to patient's history of falling and striking right gluteal area. ED Course as of Jul 10 1352 Time: 07/10 1119 Comment: Voice recognition software [employer] was used to dictate and transcribe this document. Oyster Farmer variances may occur. Despite proofreading, typographical errors may occur. By: Piotr Calzada NP Time: 07/10 1202 Comment: I discussed case and findings, including treatment plan, evaluations, consults, and lab/imaging results. Dr. Orlando Nava agreed to assume care of the patient. Disposition: Care Transferred By: Piotr Calzada NP Final diagnoses: Hematoma Piotr Calzada NP 07/10/20 1352 Cosigned by Orlando Nava MD at 07/10/2020 3:32 PM CDT Associated attestation - Orlando Nava MD - 07/10/2020 3:32 PM CDT ED Attestation I agree with management. * Amita Sanchez RN - 07/10/2020 10:15 AM CDT Pt into ER with report of a fall on 06/03. Pt reports a knot and pain to rt lower back at this time. documented in this encounter Plan of Treatment Not on file documented as of this encounter Procedures Procedure Name Priority Date/Time Associated Diagnosis Comments CT ABDOMEN PELVIS W CONTRAST ED 07/10/2020 12:12 PM CDT POCT HCG, URINE Routine 07/10/2020 11:49 AM CDT EGFR STAT 07/10/2020 10:55 AM CDT DIFFERENTIAL AUTO STAT 07/10/2020 10: 55 AM CDT CBC WITH AUTO DIFFERENTIAL STAT 07/10/2020 10:55 AM CDT COMPREHENSIVE METABOLIC PANEL STAT 07/10/2020 10:55 AM CDT documented in this encounter Results * CT Abdomen Pelvis W Contrast (07/10/2020 12:12 PM CDT) Anatomical Region Laterality Modality Body N/A Computed Tomogra phy 07/10/2020 12:1 4 PM CDT Impressions 07/10/2020 12:24 PM CDT 1. 4 cm subcutaneous hematoma in the right gluteal region with punctate foci of high attenuation internally which may represent mild hemorrhage. 2. Multiple left renal cysts. There is a 1 cm indeterminate lesion in the left upper pole which is not definitively cystic. Although this may represent a complex or hemorrhagic cyst, a short-term follow-up ultrasound is recommended in 3-6 months for further assessment and to monitor for stability. 3. No acute intra-abdominal process or acute fracture. Electronically signed by: Maurice Childress 07/10/2020 12:24 PM CDT EXAMINATION: CT ABDOMEN PELVIS W CONTRAST ORDERING HEALTHCARE PROVIDER: PIOTR CALZADA HISTORY: fall with pain and mass in the right gluteal area. TECHNIQUE: CT abdomen and pelvis with intravenous and without oral contrast. ??Reconstructed coronal and sagittal MPR images reviewed. All images stored on PACS. ??Automated exposure control was used as a dose optimization technique for this examination. CONTRAST TYPE/DOSE: 100 mL Optiray 320 via left hand COMPARISON: None. FINDINGS: LOWER CHEST: The lung bases are clear. The heart is normal in size without pericardial effusion. LIVER: Normal. GALLBLADDER: No radiodense gallstones. SPLEEN: Normal. PANCREAS: Normal. ADRENALS: Normal. KIDNEYS/URINARY TRACT: Multiple cysts and additional too small to characterize hypoattenuating, cystic lesions that also likely represent cysts are seen within the left kidney. However, there is a 1 cm, partially exophytic lesion arising from the lateral, superior pole of the left kidney that is not definitively cystic in nature. Normal urinary bladder. GI: No bowel obstruction. Normal appendix. PERITONEUM: No free intraperitoneal air or ascites. REPRODUCTIVE: Normal. VASCULATURE: No abdominal aortic aneurysm. MUSCULOSKELETAL: A focal subcutaneous soft tissue density in the right gluteal region measures approximately 4 x 3.2 cm, with punctate hyperattenuating foci internally and adjacent fat stranding. OTHER: No other acute findings. Procedure Note Meir Soto MD - 07/10/2020 EXAMINATION: CT ABDOMEN PELVIS W CONTRAST ORDERING HEALTHCARE PROVIDER: PIOTR CALZADA HISTORY: fall with pain and mass in the right gluteal area. TECHNIQUE: CT abdomen and pelvis with intravenous and without oral contrast. Reconstructed coronal and sagittal MPR images reviewed. All images stored on PACS. Automated exposure control was used as a dose optimization technique for this examination. CONTRAST TYPE/DOSE: 100 mL Optiray 320 via left hand COMPARISON: None. FINDINGS: LOWER CHEST: The lung bases are clear. The heart is normal in size without pericardial effusion. LIVER: Normal. GALLBLADDER: No radiodense gallstones. SPLEEN: Normal. PANCREAS: Normal. ADRENALS: Normal. KIDNEYS/URINARY TRACT: Multiple cysts and additional too small to characterize hypoattenuating, cystic lesions that also likely represent cysts are seen within the left kidney. However, there is a 1 cm, partially exophytic lesion arising from the lateral, superior pole of the left kidney that is not definitively cystic in nature. Normal urinary bladder. GI: No bowel obstruction. Normal appendix. PERITONEUM: No free intraperitoneal air or ascites. REPRODUCTIVE: Normal. VASCULATURE: No abdominal aortic aneurysm. MUSCULOSKELETAL: A focal subcutaneous soft tissue density in the right gluteal region measures approximately 4 x 3.2 cm, with punctate hyperattenuating foci internally and adjacent fat stranding. OTHER: No other acute findings. IMPRESSION: 1. 4 cm subcutaneous hematoma in the right gluteal region with punctate foci of high attenuation internally which may represent mild hemorrhage. 2. Multiple left renal cysts. There is a 1 cm indeterminate lesion in the left upper pole which is not definitively cystic. Although this may represent a complex or hemorrhagic cyst, a short-term follow-up ultrasound is recommended in 3-6 months for further assessment and to monitor for stability. 3. No acute intra-abdominal process or acute fracture. Electronically signed by: Meir Soto M.D. Piotr Calzada YARD WORKER IMG CT PROCEDURES Final Res ult * POCT hCG, urine (07/10/2020 11:49 AM CDT) HCG, ur, POC Negative Lot Number [id number] QC Backgroud Clear Acceptable QC Control Line Acceptable Urine 07/10/2020 11:4 9 AM CDT Piotr Calzada NP POINT OF CARE TEST ORDERABL ES Final Result * eGFR (07/10/2020 10:55 AM CDT) eGFR 132 mL/min/1.7 3 m2 [facility] ([facility]) Comment: Interpretive Data Reference Interval Normal ?>/= 90 mL/min/1.73m2 Mildly decreased* ? 60 - 89 mL/min/1.73m2 Mildly to moderately decreased ?45 - 59 mL/min/1.73m2 Moderately to severely decreased ??30 - 44 mL/min/1.73m2 Severely decreased ?15 - 29 mL/min/1.73m2 Kidney Failure ?< 15 ??mL/min/1.73m2 *Relative to young adult level If -Mongolian multiply value by 1.16. Estimated glomerular filtration [...] was last reviewed 2016. Blood specimen (specimen) 07/10/2020 10:55 AM CDT 07/10/2020 11:11 AM CDT Piotrtoney Calzada YARD WORKER LAB BLOOD ORDERABLES Final Result [facility] ([place]) 1 [facility] Department [place] [address] * Differential, auto (07/10/2020 10:55 AM CDT) Neutrophil abs 3.4 1.7 - 6.5 K/cumm [facility] ([facility]) Imm gran abs 0.0 0.0 - 0.1 K/cumm [facility] ([facility]) Lymphocyte abs 1.7 0.8 - 3.3 K/cumm [facility] ([facility]) Monocyte abs 0.4 0.2 - 0.8 K/cumm [facility] ([facility]) Eosinophil abs 0.3 0.0 - 0.5 K/cumm [facility] ([facility]) Basophil abs 0.0 0.0 - 0.1 K/cumm [facility] ([facility]) Neutrophil pct 58.5 % [facility] ([facility]) Comment: Interpretive [...] was last revised on 2018. Lymphocyte pct 29.4 % [facility] ([facility]) Comment: Interpretive Data Percent cell count reference ranges are not reported, since discordance with absolute values may lead to misinterpretation of CBC data. Current Interpretive Data was last revised on 2018. Monocyte pct 6.9 % [facility] ([facility]) Comment: Interpretive Data Percent cell count reference ranges are not reported, since discordance with absolute values may lead to misinterpretation of CBC data. Current Interpretive Data was last revised on 2018. Eosinophil pct 4.3 % [facility] ([facility]) Comment: Interpretive Data Percent cell count reference ranges are not reported, since discordance with absolute values may lead to misinterpretation of CBC data. Current Interpretive Data was last revised on 2018. Basophil pct 0.7 % [facility] ([facility]) Comment: Interpretive Data Percent cell count reference ranges are not reported, since discordance with absolute values may lead to misinterpretation of CBC data. Current Interpretive Data was last revised on 2018. Blood specimen (specimen) 07/10/2020 10:55 AM CDT 07/10/2020 11:11 AM CDT Piotr Calzada NP LAB BLOOD ORDERABLES Final Result [facility] 1 [facility] Department [place] [address] * (ABNORMAL) Comprehensive metabolic panel (07/10/2020 10:55 AM CDT) Sodium 136 135 - 145 mmol/L [facility] ([facility]) Potassium, pl 3.8 3.3 - 4.9 mmol/L [facility] ([facility]) Chloride 104 97 - 110 mmol/L [facility] ([facility]) CO2 23 22 - 32 mmol/L [facility] ([facility]) Anion gap 9 2 - 15 mmol/L [facility] ([facility]) BUN 14 8 - 25 mg/dL [facility] ([facility]) Creatinine 0.42(L) 0.60 - 1.10 mg/dL [facility] ([facility]) Glucose 89 70 - 199 mg/dL [facility] ([facility]) Comment: Interpretive Data Fasting glucose [...] 2017. Calcium 9.5 8.5 - 10.3 mg/dL [facility] ([facility]) Bilirubin, total <0.2 0.1 - 1.2 mg/dL [facility] ([facility]) Protein, pl 7.5 6.5 - 8.5 g/dL [facility] ([facility]) Albumin 4.3 3.5 - 5.0 g/dL [facility] ([facility]) Alk phos 69 40 - 130 Units/L [facility] ([facility]) ALT 18 7 - 45 Units/L [facility] ([facility]) AST 17 10 - 45 Units/L [facility] ([facility]) Blood specimen (specimen) 07/10/2020 10:55 AM CDT 07/10/2020 11:11 AM CDT Piotr Calzada YARD WORKER LAB BLOOD ORDERABLES Final Result [facility] ([facility]) 1 [facility] Department [place] [address] * CBC with auto differential (07/10/2020 10:55 AM CDT) WBC 5.8 3.8 - 9.9 K/cumm [facility] ([facility]) Hgb 13.4 11.9 - 15.5 g/dL [facility] ([facility]) Hct 40.9 35.6 - 45.5 % [facility] ([facility]) Plt 306 150 - 400 K/cumm [facility] ([facility]) MPV 9.9 9.1 - 12.3 fL [facility] ([facility]) RBC 4.78 3.90 - 5.20 M/cumm [facility] ([place]) MCV 85.6 81.3 - 96.4 fL [facility] ([facility]) MCH 28.0 27.1 - 33.3 pg [facility] ([facility]) MCHC 32.8 32.3 - 35.7 g/dL [facility] ([facility]) RDW CV 13.0 11.1 - 14.9 % [facility] ([facility]) RDW SD 40.2 35.7 - 48.1 fL [facility] ([facility]) NRBC abs 0.00 0.00 - 0.01 K/cumm [facility] ([facility]) Blood specimen (specimen) 07/10/2020 10:55 AM CDT 07/10/2020 11:11 AM CDT Piotr Calzada YARD WORKER LAB BLOOD ORDERABLES Final Result [facility] ([facility]) 1 [facility] Department [place] [address] documented in this encounter Visit Diagnoses Diagnosis Hematoma- Primary Contusion of unspecified site documented in this encounter Administered Medications Inactive Administered Medications - up to 3 most recent administrations Medication Order MAR Action Action Date Dose Rate Site ioversoL (OPTIRAY 320) injection 100 mL 100 mL, intravenous, Once in imaging, contrast, Starting on Mon07/10/20 at 1201, For 1 dose Given 07/10/2020 12:04 PM CDT 100 mL documented in this encounter Active and Recently Administered Medications Times are shown in CDT. PRN Medication Order 07/08/2020 07/09/2020 07/10/2020 ioversoL (OPTIRAY 320) injection 100 mL (COMPLETED) 100 mL, intravenous, Once in imaging, contrast, Starting on Mon07/10/20 at 1201, For 1 dose 1204 (Given - Provid er: Analia Vaughn, RT - Comment: [id number]) documented in this encounter Orders Medications Ordered That Billy ht Not Have Been Administered Count Last Ordered Date First Ordered Date ioversoL (OPTIRAY 320) injection 100 mL 1 0 07/10/2020 IV Count Last Ordered Date First Orde red Date SALINE LOCK IV 1 07/10/2020 documented in this encounter Care Teams Contact Center Consultant Relationship Specialty Start Date End Date Meir Fallon MD PCP - General 07/10/20 documented as of this encounter
--- OUTSIDE RECORDS SUMMARY | 2024-11-08 19:25 | XMS_ITS | Encounter Summary ---
Author Organization [facility] Healthcare Address [address] [place] [address] Care Team Providers Care Solution Sales Senior Executive Name Role Phone Meir Fallon MD Primary Care Provider [phone] Encounter Details Date Type Department Care Team (Late st Contact Info) Description 07/27/2020 8:05 AM CDT Lab [address] [address] Robson Osullivan MD [address] [place] [id number] Preop testing Discharge Disposition: Discharge to home or self care Social History Tobacco Use Types Packs/Day Years Used Date Smoking Tobacco: Former Cigarettes 0.5 10 0 11/13/2008 - 11/13/2018 Alcohol Use Standard Drinks/Week Comments Yes 0 (1 standard drink = 0.6 oz pur e alcohol) Comments No Sex and Gender Information Value Date Recorded Sex Assigned at Not on file 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 Gender Identity Not on file Sexual Orientation Not on file documented as of this encounter Discharge Disposition Disposition Code Departure Means Destination Discharge to home or self care documented in this encounter Plan of Treatment Not on file documented as of this encounter Procedures Procedure Name Priority Date/Time Associated Diagnosis Comments COVID-19 CORONAVIRUS RNA Routine 07/27/2020 8:15 AM CDT Preop testing documented in this encounter Results * COVID-19 Coronavirus RNA Nasopharyngeal (07/27/2020 8:15 AM CDT) COVID-19 RNA Not Detected [facility] ([place]) Comment: Interpretive Data Testing performed at [facility]. The 2019-Novel Coronavirus Assay (COVID-19) Real Time RT-PCR assay is for in vitro diagnostic use under FDA emergency use authorization only. A negative RT-PCR result does not preclude infection with COVID-19 and should not be used as the sole basis for treatment or other patient management decisions. Additional sample types have been validated according to CLIA regulations. ?? Current Interpretive Data was last revised on 2020. Testing performed by: [facility], [address] [place]., [address] Nasopharyngeal 07/27/2020 8: 15 AM CDT 07/27/2020 1:20 PM CDT Narrative [facility] ([facility]) - 07/27/2020 7:24 PM CDT Is the patient experiencing any symptoms consistent with COVID (eg. Fever, cough, shortness of breath)?->No What is the reason for testing?->Screening prior to scheduled (>12 hr) surgery or procedure us Robson Osullivan MD LAB MICROBIOLOGY - GENERAL ORDERABLES Final Result [facility] ([facility]) 1 [facility] Department of Laboratories [place], [place] [id number] documented in this encounter Visit Diagnoses Diagnosis Preop testing Unspecified pre-operative examination documented in this encounter Care Teams Solution Sales Senior Executive Relationship Specialty Start Date End Date Meir Fallon MD PCP - General 07/10/20 documented as of this encounter
--- OUTSIDE RECORDS SUMMARY | 2024-11-08 19:25 | XMS_ITS | Encounter Summary ---
Author Organization [facility] Address [address] [place] [address] Care Team Providers Care Financial Intern Name Role Phone Meir Fallon MD Primary Care Provider [phone] [phone] Encounter Details Date Type Department Care Team (Late st Contact Info) Description 07/14/2020 Orders Only [facility] [address] [facility] [address] [place] [id number] Robson Osullivan MD [address] [place] [address] [address] [place] [address] Social History Tobacco Use Types Packs/Day Years Used Date Smoking Tobacco: Former Cigarettes 0.5 10 0 11/13/2008 - 11/13/2018 Alcohol Use Standard Drinks/Week Comments Yes 0 (1 standard drink = 0.6 oz pur e alcohol) Comments No Sex and Gender Information Value Date Recorded Sex Assigned at Not on file Legal Sex Female 4:31 PM FIRST ASSIST Gender Identity Not on file Sexual Orientation Not on file documented as of this encounter Plan of Treatment Not on file documented as of this encounter Visit Diagnoses Not on filedocumented in this encounter Care Teams Financial Intern Relationship Specialty Start Date End Date Meir Fallon MD PCP - General 07/10/20 documented as of this encounter
--- OUTSIDE RECORDS SUMMARY | 2024-11-08 19:25 | XMS_ITS | Encounter Summary ---
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
--- OUTSIDE RECORDS SUMMARY | 2024-11-08 19:25 | XMS_ITS | Encounter Summary ---
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 ??Testing performed at [facility]. ??The MeBeam Simplexa COVID-19 Direct assay is for in vitro diagnostic use under FDA emergency use authorization only. A negative RT-PCR result does not preclude infection with COVID-19 and should not be used as the sole basis for treatment or other patient management decisions. Additional sample types have been validated according to CLIA regulations. Current Interpretative Data was last reviewed December 10, 2020. Testing performed by: [facility], [address] [place]., [address] Employeed in healthcare? No SEBASTIEN Comment:Testing performed by : [facility], 1 [facility], [address] status? No SEBASTIEN Comment:Testing performed by : [facility], [address] [facility], [address] Group care resident? No SEBASTIEN Comment:Testing performed by : [facility], [address] [facility], [address] Hospitalized? No SEBASTIEN Comment:Testing performed by : [facility], 1 [facility], [address] Is patient in ICU? No SEBASTIEN Comment:Testing performed by : [facility], [address] [place] [address], [address] Symptomatic as defined by CDC? Yes SEBASTIEN Comment:Testing performed by : [facility], [address] [place]., [address] Nasopharyngeal 05/24/2021 4: 10 PM CDT 05/24/2021 11:04 PM CDT Narrative SEBASTIEN - 05/25/2021 7:50 AM CDT What is the reason for testing?->Symptoms of COVID-19 in low-risk group Date of Symptom Onset->05/18/21 Zulema Miranda NP LAB MICROBIOLOGY - GENERAL OR DERABLES Final Result SEBASTIEN [address] [address] [place] [address] documented in this encounter Visit Diagnoses Diagnosis Upper respiratory tract infection, unspecified type documented in this encounter Additional Health Concerns Infection Onset Date Last Indicated Resolved Time COVID: Suspected 05/24/2021 05/24/2021 05/25/2021 7:51 AM CDT documented as of this encounter Care Teams Geotechnical Laboratory Technician Relationship Specialty Start Date End Date Meir Fallon MD PCP - General 07/10/20 documented as of this encounter
--- OUTSIDE RECORDS SUMMARY | 2024-11-08 19:25 | XMS_ITS | Encounter Summary ---
Author Organization [facility] Healthcare Address [address] [place] [address] Care Team Providers Care Clinical Molecular Geneticist Name Role Phone Meir Fallon MD Primary Care Provider [phone] Encounter Details Date Type Department Care Team (Late st Contact Info) Description 07/29/2020 9:45 AM CDT Anesthesia Event [facility] Operating Room [address] [place] [address] Griselda Guerrero MD PhD [address] [place] [address] Anesthesia Record Procedure Summary Procedure Name Responsible Anesthesiologist Anesthesia Start Time Anesthesia Stop Time EXCISION OF RIGHT GLUTEAL SUBCUTANEOUS MASS (Right: Hip) Griselda Guerrero MD PhD 07/29/20 0945 07/29/20 1110 Events Date Time Event Comment 07/29/2020 0821 0945 In Room 0945 An Start 0945 An Start Data 0948 Quick Note O2 at 6L FM 0949 Start Supplemental O2 0951 An Induction The patient was reevaluated immediately before moderate or deep sedation use and before anesthesia induction. 0956 Anesthesia Ready 0958 Proc Start 1000 Incision Start 1101 Proc Fin 1105 Out of Room 1105 an stop data 1109 Handoff to RN I completed my handoff to the receiving nurse during which we: 1. Patient identified 2. Responsible provider identified 3. Pertinent medical history reviewed 4. Procedure type and surgical course discussed 5. Intraoperative anesthetic management and any significant issues discussed 6. Expectations and concerns for postop period discussed 7. Questions solicited from receiving nurse 8. Patient disposition at the time of handoff: PACU 1110 An Stop Meds Name Total propofol 600.53 mg midazolam 2 mg fentaNYL 200 mcg Lactated Ringer's (LR) infusion 800 mL Lactated Ringer's (LR) infusion 0 mL * Agents Name O2 Sevoflurane Inspired Sevoflurane * Blood No blood administrations on file. Lines, Drains, and Airways Type Details Placement Removal Closed/Suction/Open Drain 07/29/20; 1044; No; Right; Other (Comment) (BUTTOCK); Bulb; 7 Fr. 07/29/20 1044 by Nida Terrazas RN Peripheral IV Placement Date: 07/29/20; Placement Time: 817; Catheter Size: 20 G; Orientation: Left, Posterior; Location: Hand; Site Prep: Chlorhexidine; Inserted by: Ansley; Insertion Attempts: 1; Patient Tolerance: Tolerated well; Removal Date: 07/29/20; Removal Time: 1330 07/29/20 0818 by Rafaela Leon RN 07/29/20 1330 by Rafaela Leon RN RETIRED Surgical Site 07/29/20; 1008; Right; Buttocks; 10/08/24 (Retired LDA, Removed/Completed by [address] with LDA Utility); 1213 (Retired LDA, Removed/Completed by [address] with LDA Utility) 07/29/20 1008 by Nida Terrazas RN 10/08/24 1213 by Discharge Provider, Automatic documented in this encounter Social History Tobacco Use Types Packs/Day Years Used Date Smoking Tobacco: Former Cigarettes 0.5 10 0 11/13/2008 - 11/13/2018 Alcohol Use Standard Drinks/Week Comments Yes 0 (1 standard drink = 0.6 oz pur e alcohol) Comments No Sex and Gender Information Value Date Recorded Sex Assigned at Not on file 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 Gender Identity Not on file Sexual Orientation Not on file documented as of this encounter OR Notes * Anesthesia Postprocedure Evaluation - Griselda Guerrero MD PhD - 07/29/2020 1:08 PM CDT Patient: Patt Fitzgerald Procedure Summary Date: 07/29/20 Room / Location: [facility] OR [address] [place] [address] OPERATING ROOM Anesthesia Start: 944 Anesthesia Stop: 1109 Procedure: EXCISION OF RIGHT GLUTEAL SUBCUTANEOUS MASS (Right Hip) Diagnosis: Mass of right hip region (Mass of right hip region [R22.41]) Provider: Robson Osullivan MD Responsible Provider: Griselda Guerrero MD PhD Anesthesia Type: MAC ASA Status: 1 Anesthesia Type: MAC Last vitals BP 95/77 Pulse 98 Temp 37 ??C (98.6 ??F) (Temporal) Resp 18 SpO2 97% Anesthesia Post Evaluation Patient location during evaluation: PACU Patient participation: complete - patient participated Level of consciousness: fully awake Pain score: 0 Pain management: adequate Airway patency: adequate Anesthetic complications: no Cardiovascular status: acceptable Respiratory status: acceptable Hydration status: acceptable Pt is: normothermic Nausea/Vomiting status: none * Anesthesia Preprocedure Evaluation - Griselda Guerrero MD PhD - 07/29/2020 7:59 AM CDT Images from the original note were not included. Anesthesia Evaluation Patt Fitzgerald is a 35 y.o. female Procedure(s): EXCISION MASS RIGHT HIP REGION Pre-Op Diagnosis Codes: * Mass of right hip region [R22.41] HISTORY Past Medical History Information obtained from: patient and chart. Neurological Neuro/Psych system: negative Cardiovascular Cardiac system: negative Respiratory Pertinent negatives: non-smoker Respiratory system: negative Hepatic / Heme Hepatic/Heme system: negative Gastrointestinal GI system: negative Renal / Renal/ system: negative Endocrine / Other Endocrine/Other system: negative Day of Surgery assessments + Possibility of assessed (bHCG is pending) - HCG negative (see labs). Patient Active Problem List Diagnosis ??? Mass of right hip region History reviewed. No pertinent past medical history. Past Surgical History: Procedure Laterality Date ??? CERVIX SURGERY 2007 [facility] History No obstetric history on file. Allergies Allergen Reactions ??? Erythromycin Base Nausea only and Vomiting ??? Meperidine Vomiting Med List Status: Nurse Complete Set By: Oanh Duff RN at 07/24/2020 3:08 PM Taking? Last Dose Start Date End Date Provider valACYclovir (VALTREX) 500 mg tablet 07/28/2020 04/28/20 -- Historical Provider, Current Facility-Administered Medications: ??? acetaminophen (TYLENOL) tablet 1,000 mg, 1,000 mg, oral, Once ??? celecoxib (CeleBREX) capsule 200 mg, 200 mg, oral, Once ??? Lactated Ringer's (LR) infusion, 30 mL/hr, intravenous, Continuous ??? Lactated Ringer's (LR) infusion, 30 mL/hr, intravenous, Continuous ??? sodium chloride 0.9% flush 0.5-20 mL, 0.5-20 mL, intra-catheter, PRN ??? sodium chloride 0.9% flush 0.5-20 mL, 0.5-20 mL, intra-catheter, PRN Social History Tobacco Use Smoking Status Former Smoker ??? Packs/day: 0.50 ??? Years: 10.00 ??? Pack years: 5.00 ??? Quit date: 11/13/2018 ??? Years since quittin.7 Substance and Sexual Activity Alcohol Use Yes Substance and Sexual Activity Drug Use Never Family History Problem Relation Age of Onset ??? Heart disease Mother ??? Cancer Maternal Grandmother ??? Diabetes Maternal Grandfather ??? Heart disease Maternal Grandfather ??? Stroke Maternal Grandfather There were no vitals filed for this visit. PT: No results found for requested labs within last 720 hours. INR: No results found for requested labs within last 720 hours. APTT: No results found for requested labs within last 720 hours. Hgb A1C: No results found for requested labs within last 720 hours. CBC RBC: 07/10/2020: 4.78 M/cumm RDW: No results found for requested labs within last 720 hours. MCHC: 07/10/2020: 32.8 g/dL MCH: 07/10/2020: 28.0 pg MCV: 07/10/2020: 85.6 fL Hct: 07/10/2020: 40.9 % Hgb: 07/10/2020: 13.4 g/dL WBC: 07/10/2020: 5.8 K/cumm MPV: 07/10/2020: 9.9 fL Platelets: 07/10/2020: 306 K/cumm RDW CV: 07/10/2020: 13.0 % RDW Sd: 07/10/2020: 40.2 fL BMP Glucose: 07/10/2020: 89 mg/dL Calcium: 07/10/2020: 9.5 mg/dL Sodium: 07/10/2020: 136 mmol/L Potassium: 07/10/2020: 3.8 mmol/L CO2: 07/10/2020: 23 mmol/L Chloride: 07/10/2020: 104 mmol/L BUN: 07/10/2020: 14 mg/dL Creatinine: 07/10/2020: 0.42 mg/dL* DOS Physical Exam Medical history, medications, and allergies reviewed. Attestation: I endorse the findings of the anesthesia pre-evaluation assessment dated: 07/29/2020. Airway Exam: Mallampati: II Cervical ROM: FROM TM distance: normal Jaw ROM: full Cardiovascular Exam: Rate: regular Rhythm: regular Pulmonary Exam: LCTA, bilat EENT Exam: trachea midline Dental Exam: Appears intact Current state: Patient's current state is cooperative and interactive. Anesthesia Plan ASA 1 Planned anesthesia: MAC Induction: Induction: intravenous. Postoperative Plan: Postoperative administration opioids intended. No postoperative mechanical ventilation intended. Patient's planned disposition post procedure is Outpatient. Informed Consent: Discussed plan with DOCTOR OSTEOPATHIC and attending. Anesthesia plan and risks discussed with patient. Consent and Attending signature: I and/or my designee have discussed the anesthesia plan, benefits, possible alternatives, parental presence at time of induction (if indicated), and clinically relevant risks that may include dental injury, unintentional awareness, and/or other complications. The patient and/or parent/legal guardian understand, and agree to proceed. All questions answered. documented in this encounter Plan of Treatment Not on file documented as of this encounter Visit Diagnoses Not on filedocumented in this encounter Administered Medications Inactive Administered Medications - up to 3 most recent administrations Medication Order MAR Action Action Date Dose Rate Site fentaNYL (SUBLIMAZE) preservative free injection intravenous, As needed, Starting on Mon07/29/20 at 0951, Anesthesia Intra-op Given 07/29/2020 10:19 AM CDT 50 mcg Given 07/29/2020 10:14 AM CDT 50 mcg Given 07/29/2020 10:00 AM CDT 50 mcg Lactated Ringer's (LR) infusion 30 mL/hr, intravenous, Continuous, Starting on Mon07/29/20 at 0830, Pre-Op Rate/Dose Verify 07/29/2020 9:45 AM C DT New Bag 07/29/2020 8:19 AM CDT 30 mL/hr 30 mL/hr midazolam (VERSED) 1 mg/mL preservative free injection intravenous, Administer over 2 Minutes, As needed, Starting on Mon07/29/20 at 0945, Anesthesia Intra-op Given 07/29/2020 9:45 AM CDT 2 mg propofoL (DIPRIVAN) IV intravenous, Continuous PRN, Starting on Mon07/29/20 at 0951, Anesthesia Intra-op Rate/Dose Change 07/29/2020 10:16 AM CDT 125 mcg/kg/min 58.88 mL/hr Rate/Dose Change 07/29/2020 10:00 AM CDT 100 mcg/kg/min 47 .1 mL/hr New Bag 07/29/2020 9:51 AM CDT 75 mcg/kg/min 35.33 mL/h r documented in this encounter Care Teams Clinical Molecular Geneticist Relationship Specialty Start Date End Date Meir Fallon MD PCP - General 07/10/20 documented as of this encounter
--- OUTSIDE RECORDS SUMMARY | 2024-11-08 19:25 | XMS_ITS | Encounter Summary ---
Author Organization [facility] Address [address] [place] [address] Care Team Providers Care Typewriter Mechanic Name Role Phone Meir Fallon MD Primary Care Provider [phone] [phone] Encounter Details Date Type Department Care Team (Late st Contact Info) Description 07/14/2020 Orders Only [facility] [address] [facility] [address] [place] [id number] Chandni Sanchez LPN Pre-op testing (Primary Dx) Social History Tobacco Use Types Packs/Day Years Used Date Smoking Tobacco: Former Cigarettes 0.5 10 0 11/13/2008 - 11/13/2018 Alcohol Use Standard Drinks/Week Comments Yes 0 (1 standard drink = 0.6 oz pur e alcohol) Comments No Sex and Gender Information Value Date Recorded Sex Assigned at Not on file 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
--- OUTSIDE RECORDS SUMMARY | 2024-11-08 19:25 | XMS_ITS | Encounter Summary ---
Author Organization [facility] Medical Group Address [address] [place] [address] Care Team Providers Care Melter Supervisor Electric Arc Furnace Name Role Phone Meir Fallon MD Primary Care Provider [phone] [phone] Encounter Details Date Type Department Care Team (Late st Contact Info) Description 07/24/2020 Orders Only [facility] Testing Site - [address] [place] [address] Robson Osullivan MD [address] [place] [address] [facility] [[email or web address] [address] [place] [address] Preop testing (Primary Dx) Social History Tobacco Use Types Packs/Day Years Used Date Smoking Tobacco: Former Cigarettes 0.5 10 0 11/13/2008 - 11/13/2018 Alcohol Use Standard Drinks/Week Comments Yes 0 (1 standard drink = 0.6 oz pur e alcohol) Comments No Sex and Gender Information Value Date Recorded Sex Assigned at Not on file 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 documented in this encounter Plan of Treatment Not on file documented as of this encounter Results * COVID-19 Coronavirus RNA Nasopharyngeal (07/27/2020 8:15 AM CDT) COVID-19 RNA Not Detected ARIS LUTHER (RAJ) Comment: Interpretive Data Testing performed at [facility] Infectious Disease [facility]. The [...] last revised on 2020. Testing performed by: [facility], [address] [place]., [address] Nasopharyngeal 07/27/2020 8: 15 AM CDT 07/27/2020 1:20 PM CDT Narrative SEBASTIEN LUTHER (RAJ) - 07/27/2020 7:24 PM CDT Is the patient experiencing any symptoms consistent with COVID (eg. Fever, cough, shortness of breath)?->No What is the reason for testing?->Screening prior to scheduled (>12 hr) surgery or procedure us Robson Osullivan MD LAB MICROBIOLOGY - GENERAL ORDERABLES Final Result SEBASTIEN HOMA (RAJ) 1 [facility] Department [place] [address] documented in this encounter Visit Diagnoses Diagnosis Preop testing- Primary Unspecified pre-operative examination Preop testing Unspecified pre-operative examination documented in this encounter Care Teams Melter Supervisor Electric Arc Furnace Relationship Specialty Start Date End Date Meir Fallon MD PCP - General 07/10/20 documented as of this encounter
--- OUTSIDE RECORDS SUMMARY | 2024-11-08 19:25 | XMS_ITS | Encounter Summary ---
Author Organization [facility] Healthcare Address [address] [place] [address] Care Team Providers Care Bacon Skinner Name Role Phone Unavailable Primary Care Provider Unavailabl e Encounter Details Date Type Department Care Team (Late st Contact Info) Description 10/02/2016 4:27 PM FURNACE TAPPER - 10/02/2016 6:10 PM FURNACE TAPPER Hospital Encounter [facility] Wilfrid Ward MD [address] [facility] [place] [address] Bronchitis; Acute upper respiratory infection Social History Tobacco Use Types Packs/Day Years Used Date Smoking Tobacco: Never Assessed Comments Unknown Sex and Gender Information Value Date Recorded Sex Assigned at Not on file Legal Sex Female 4:31 PM FURNACE TAPPER Gender Identity Not on file Sexual Orientation Not on file documented as of this encounter Plan of Treatment Not on file documented as of this encounter Procedures Procedure Name Priority Date/Time Associated Diagnosis Comments XR CHEST PA LATERAL 2 VIEWS Routine 10/02/2016 4:54 PM FURNACE TAPPER documented in this encounter Results * XR Chest Pa Lateral 2 Vw (10/02/2016 4:54 PM FURNACE TAPPER) Anatomical Region Laterality Modality Body, Chest N/A Radiographic Lisa ging 10/02/2016 4:54 PM FURNACE TAPPER Narrative 10/05/2016 3:12 PM FURNACE TAPPER XR Chest 2 Views ?[id number] ??Acc#: ??[id number] DATE OF EXAM: ??Oct 02 2016 CLINICAL HISTORY: Cough and bronchitis. RESULT: Two views of the chest are compared to a prior exam dated 06/17/10. The lungs are clear bilaterally with no focal infiltrates. The heart size and pulmonary vascularity are normal. IMPRESSION: NO ACTIVE DISEASE. Interpreting Physician: ??DR GAIL VILLARREAL M.D. ??Read on: ??Oct 03 2016 9:45A Transcribed by: ??TXD ??On: Oct 03 2016 ??9:45A Approved Electronically by: ??PHIL Richards, DR REYNOLDS ??on: ??Oct 05 2016 3:11P Attending: ??WILFRID FERNANDES Requesting: ??SEBASTIEN PARKER Requesting Fax: ??-- Attending Fax: ??-- Attending ID: ??[id number] Requesting ID: ??[id number] Report To 1 ID: ??[id number] Report To 1 Name: ??IWLFRID FERNANDES Report To 1 FAX: ??-- NextGen Order #: Procedure Note Provider, MD Mecca - 03/15/2017 XR Chest 2 Views [id number] Acc#: [id number] DATE OF EXAM: Oct 02 2016 CLINICAL HISTORY: Cough and bronchitis. RESULT: Two views of the chest are compared to a prior exam dated 06/17/10. Thelungs are clear bilaterally with no focal infiltrates. The heart size andpulmonary vascularity are normal. IMPRESSION: NO ACTIVE DISEASE. Interpreting Physician: DR GAIL VILLARREAL M.D. Read on: Oct 03 20169:45A Transcribed by: TXD On: Oct 03 2016 9:45A Approved Electronically by: PHIL Richards, DR REYNOLDS on: Oct 05 20163:11P Attending: WILFRID FERNANDES Requesting: SEBASTIEN PARKER Requesting Fax: -- Attending Fax: -- Attending ID: [id number] Requesting ID: [id number] Report To 1 ID: [id number] Report To 1 Name: WILFRID FERNANDES Report To 1 FAX: -- NextGen Order #: Historical Provider MD DUPREE XR PROCEDURES Final R esult documented in this encounter Visit Diagnoses Diagnosis Bronchitis Bronchitis, not specified as acute or chronic Acute upper respiratory infection Acute upper respiratory infections of unspecified site documented in this encounter
--- OUTSIDE RECORDS SUMMARY | 2024-11-08 19:25 | XMS_ITS | Encounter Summary ---
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
--- OUTSIDE RECORDS SUMMARY | 2024-11-08 19:25 | XMS_ITS | Encounter Summary ---
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
--- OUTSIDE RECORDS SUMMARY | 2024-11-08 19:25 | XMS_ITS | Encounter Summary ---
Author Organization [facility] Address [address] [facility] [address] [place] [address] Care Team Providers Care Director Business Travel Name Role Phone Meir Fallon MD Primary Care Provider [phone] Reason for Visit * Reason Comments COVID-19 EVALUATION x6 days, sore throat , L ear pain, nausea, fatigue, had fever at the beginning has now subsided. Denies cough, sob, nasal congestion/runny nose, headaches. Pt had covid November 2020, received J&J vaccine 02/2021. No known covid exposures. 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 Gender Identity Not on file Sexual Orientation Not on file documented as of this encounter Last Filed Vital Signs Vital Sign Reading Time Taken Comments Blood Pressure 106/70 05/24/2021 3:08 PM CDT Pulse 80 05/24/2021 3:08 PM CDT Temperature 37 ??C (98.6 ??F) 05/24/2021 3:08 PM CDT Respiratory Rate 16 05/24/2021 3:08 PM CDT Oxygen Saturation 98% 05/24/2021 3:08 PM CDT Inhaled Oxygen Concentration - - Weight 75.8 kg (167 lb) 05/24/2021 3:08 PM CDT Height 162.6 cm (5' 4 ) 05/24/2021 3:08 PM CDT Body Mass Index 28.67 05/24/2021 3:08 PM CDT documented in this encounter Patient Instructions * Patient Instructions* Zulema Miranda NP - 05/24/2021 3:00 PM CDT You have an upper respiratory infection with is viral. It is the common cold. Treatment is supportive over the counter therapy. You may use Tylenol or Motrin for pain or fever. You can use a cough expectorant like Mucinex if you have chest congestion with thick mucus. Benadryl/ Zyrtec can be used to dry up a runny nose, and sudafed can help with nasal congestion. A humidifier may provide some relief. Cold medications like Dayquil and Nyquil can help. Drink plenty of fluids and stay hydrated. Get plenty of rest documented in this encounter Progress Notes * Zulema Miranda NP - 05/24/2021 3:00 PM CDT Images from the original note were not included. Patient ID: Patt Fitzgerald is a 36 y.o. female followed by Meir Fallon MD Patient was wearing the following PPE: mask. MA was wearing the following PPE: mask, gown, gloves and face shield. Provider was wearing the following PPE: mask, gown, gloves and face shield. Chief Complaint Patient presents with ??? COVID-19 EVALUATION x6 days, sore throat, L ear pain, nausea, fatigue, had fever at the beginning has now subsided. Denies cough, sob, nasal congestion/runny nose, headaches. Pt had covid November 2020, received J&J vaccine 02/2021. No known covid exposures. URI This is a new problem. The current episode started in the past 7 days (05/19/2021). The problem has been gradually worsening. Maximum temperature: subjective. Associated symptoms include ear pain, nausea, sneezing and a sore throat. Pertinent negatives include no abdominal pain, chest pain, congestion, coughing, diarrhea, dysuria, headaches, neck pain, rash, rhinorrhea, shortness of breath, sinus pain, vomiting or wheezing. She has tried NSAIDs and antihistamine for the symptoms. The treatment provided no relief. Patient presents to clinic for assessment of Chief Complaint Patient presents with ??? COVID-19 EVALUATION x6 days, sore throat, L ear pain, nausea, fatigue, had fever at the beginning has now subsided. Denies cough, sob, nasal congestion/runny nose, headaches. Pt had covid November 2020, received J&J vaccine 02/2021. No known covid exposures. . Patient reports SORE THROAT, EAR PAIN and NAUSEA Patient reports this has been going on for 5 days. Patient with sick or suspected COVID-19 contacts: No Patient has following risks for COVID-19: none Review of Systems Constitutional: Positive for appetite change (decreased), fatigue and fever. Negative for chills. HENT: Positive for ear pain, sneezing and sore throat. Negative for congestion, postnasal drip, rhinorrhea, sinus pain and trouble swallowing. Eyes: Negative for pain, discharge, redness and itching. Respiratory: Negative for cough, chest tightness, shortness of breath and wheezing. Cardiovascular: Negative for chest pain and leg swelling. Gastrointestinal: Positive for nausea. Negative for abdominal pain, constipation, diarrhea and vomiting. Genitourinary: Negative for difficulty urinating, dysuria, frequency and urgency. Musculoskeletal: Negative for back pain, myalgias and neck pain. Skin: Negative for rash and wound. Allergic/Immunologic: Negative for environmental allergies and food allergies. Neurological: Negative for dizziness, weakness and headaches. Current Outpatient Medications Medication Sig Dispense Refill ??? famotidine (PEPCID) 40 mg tablet Take 40 mg by mouth daily ??? norgestimate-ethinyl estradioL (Tri-Sprintec, 28,) 0.18/0.215/0.25 mg-35 mcg (28) per tablet Tri-Sprintec (28) 0.18 mg(7)/0.215 mg(7)/0.25 mg(7)-35 mcg tablet ??? naproxen (NAPROSYN) 500 mg tablet Take 1 tablet (500 mg total) by mouth 2 (two) times a day with meals (Patient not taking: Reported on 05/24/2021) 30 tablet 0 ??? valACYclovir (VALTREX) 500 mg tablet Take 500 mg by mouth daily (Patient not taking: Reported on 05/24/2021) No current facility-administered medications for this visit. Past Medical History: Diagnosis Date ??? HSV-2 infection There is no immunization history on file for this patient. Social History Tobacco Use Smoking Status Former Smoker ??? Packs/day: 0.50 ??? Years: 10.00 ??? Pack years: 5.00 ??? Quit date: 11/13/2018 ??? Years since quittin.5 Smokeless Tobacco Never Used Vitals: 05/24/21 1508 BP: 106/70 BP Location: Left arm Patient Position: Sitting Pulse: 80 Resp: 16 Temp: 37 ??C (98.6 ??F) TempSrc: Oral SpO2: 98% Weight: 75.8 kg (167 lb) Height: 162.6 cm (5' 4 ) Physical Exam Vitals and nursing note reviewed. Constitutional: General: She is awake. Appearance: Normal appearance. She is well-developed, well-groomed and overweight. HENT: Head: Normocephalic and atraumatic. Right Ear: Tympanic membrane and external ear normal. Left Ear: Tympanic membrane and external ear normal. Nose: Nose normal. Mouth/Throat: Lips: Storden. Mouth: Mucous membranes are moist. Pharynx: Oropharynx is clear. Eyes: General: Lids are normal. Conjunctiva/sclera: Conjunctivae normal. Pupils: Pupils are equal, round, and reactive to light. Cardiovascular: Rate and Rhythm: Normal rate and regular rhythm. Pulmonary: Effort: Pulmonary effort is normal. Breath sounds: Normal breath sounds. No wheezing. Abdominal: General: Bowel sounds are normal. Palpations: Abdomen is soft. Musculoskeletal: General: Normal range of motion. Cervical back: Normal range of motion and neck supple. Skin: General: Skin is warm and dry. Capillary Refill: Capillary refill takes less than 2 seconds. Neurological: Mental Status: She is alert and oriented to person, place, and time. Psychiatric: Behavior: Behavior normal. Behavior is cooperative. Assessment/Plan Diagnoses and all orders for this visit: Upper respiratory tract infection, unspecified type - POCT rapid strep A - COVID-19 Coronavirus RNA Nasopharyngeal; Future - Throat culture Throat; Future Results for orders placed or performed in visit on 05/24/21 POCT rapid strep A Result Value Ref Range Rapid Strep A, POC Negative #URI 2/2 viral infection v covid -consider antibiotics for otalgia if symptoms worsen -covid test pending Discussed COVID testing reasoning Discussed symptomatic relief of symptoms Discussed need to return to ER for further evaluation including worsening fevers, shortness of breath, of other concerning symptoms Advised to rest and stay adequately hydrated Orders Placed This Encounter Procedures ??? COVID-19 Coronavirus RNA Nasopharyngeal Standing Status: Future Standing Expiration Date: 05/24/2022 Order Specific Question: Is the patient experiencing any symptoms consistent with COVID (eg. Fever,cough, shortness of breath)? Answer: Yes Order Specific Question: What is the reason for testing? Answer: Symptoms of COVID-19 in low-risk group Order Specific Question: Date of Symptom Onset Answer: 05/18/2021 Order Specific Question: Is the patient hospitalized? Answer: No Order Specific Question: Is the patient admitted to an ICU? Answer: No Order Specific Question: Does the patient currently work in a healthcare facility with direct patient contact? Answer: No Order Specific Question: Is the patient a resident of a congregate care or living setting? Answer: No Order Specific Question: Is the patient ? Answer: No ??? Throat culture Throat Standing Status: Future Standing Expiration Date: 05/24/2022 ??? POCT rapid strep A Zulema Miranda NP documented in this encounter Plan of Treatment Not on file documented as of this encounter Procedures Procedure Name Priority Date/Time Associated Diagnosis Comments POCT RAPID STREP Routine 05/24/2021 3:21 PM CDT Upper respiratory tract infection, unspecified type documented in this encounter Results * Throat culture Throat (05/24/2021 4:10 PM CDT) Report Final Report: No growth of pathogens. [facility] Comment:Testing performed by : [facility], [address] [place]., [address] Throat 05/24/2021 4:10 PM CDT 05/24/2021 10:44 PM CDT Narrative [facility] - 05/25/2021 8:32 PM CDT Testing performed by [facility] ([phone]). Zulema Miranda NP LAB MICROBIOLOGY - GENERAL OR DERABLES Final Result [facility] [address] Department [place] [address] * COVID-19 Coronavirus RNA Nasopharyngeal (05/24/2021 4:10 PM CDT) COVID-19 RNA Not Detected Not Detected [facility] Comment: Interpretive Data Synonyms for this test include: PCR and NAAT . ??Testing performed at [facility]. ??The Nanali Simplexa COVID-19 Direct assay is for in [...] reviewed December 10, 2020. Testing performed by: [facility], [address] [facility] [place]., [address] Employeed in healthcare? No [facility]IEN Comment:Testing performed by : [facility], [address] [place]., [address] status? No [facility]IEN Comment:Testing performed by : [facility], [address] [place] [address], [place]., [address] Group care resident? No [facility]IEN Comment:Testing performed by : [facility], [address] [place]., [address] Hospitalized? No [facility]IEN Comment:Testing performed by : [facility], [address] [place]., [address] Is patient in ICU? No [facility]IEN Comment:Testing performed by : [facility], [address] [place]., [address] Symptomatic as defined by CDC? Yes [facility]IEN Comment:Testing performed by : [facility], [address] [place]., [address] Nasopharyngeal 05/24/2021 4: 10 PM CDT 05/24/2021 11:04 PM CDT Narrative SEBASTIEN - 05/25/2021 7:50 AM CDT What is the reason for testing?->Symptoms of COVID-19 in low-risk group Date of Symptom Onset->05/18/21 Zulema Miranda NP LAB MICROBIOLOGY - GENERAL OR DERABLES Final Result [facility] [address] [place] [address] * POCT rapid strep A (05/24/2021 3:21 PM CDT) [facility] Rapid Strep A, POC Negative Swab 05/24/2021 3:21 PM CDT Zulema Miranda NP POINT OF CARE TEST ORDERABLES Final Result documented in this encounter Visit Diagnoses Diagnosis Upper respiratory tract infection, unspecified type Upper respiratory tract infection, unspecified type Upper respiratory tract infection, unspecified type documented in this encounter Historical Medications * This list may reflect changes made after this encounter. famotidine (PEPCID) 40 mg tablet Take 1 tablet (40 mg total) by mouth daily 05/07/2021 added in this encounter Additional Health Concerns Infection Onset Date Last Indicated Resolved Time COVID: Suspected 05/24/2021 05/24/2021 05/25/2021 7:51 AM CDT documented as of this encounter Care Teams Director Business Travel Relationship Specialty Start Date End Date Meir Fallon MD PCP - General 07/10/20 documented as of this encounter
--- OUTSIDE RECORDS SUMMARY | 2024-11-08 19:25 | XMS_ITS | Encounter Summary ---
Author Organization [facility] Address [address] [facility] [address] [place] [address] Care Team Providers Care Broomcorn Scraper Name Role Phone Meir Fallon MD Primary Care Provider [phone] Encounter Details Date Type Department Care Team (Late st Contact Info) Description 03/22/2021 Telephone [facility] [place] [address] [place] [address] Kathleen Arreaga MA Social History Tobacco Use Types Packs/Day Years Used Date Smoking Tobacco: Former Cigarettes 0.5 10 0 11/13/2008 - 11/13/2018 Alcohol Use Standard Drinks/Week Comments Yes 0 (1 standard drink = 0.6 oz pur e alcohol) Comments No Sex and Gender Information Value Date Recorded Sex Assigned at Not on file 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 * Telephone Encounter - Kathleen Arreaga MA - 03/22/2021 4:14 PM CDT ----- Message from Thaddeus Navas NP sent at 03/22/2021 3:59 PM CDT ----- Please call the patient regarding her spinal X-rays. Her X-rays reveal no acute fracture or anomaly. Noted to have mild degenerative disc disease, this is not acute nor likely causing current symptoms. Patient needs to call PCP for follow up MRI for further evaluation. Thanks! documented in this encounter Plan of Treatment Not on file documented as of this encounter Visit Diagnoses Not on filedocumented in this encounter Care Teams Broomcorn Scraper Relationship Specialty Start Date End Date Meir Fallon MD PCP - General 07/10/20 documented as of this encounter
--- OUTSIDE RECORDS SUMMARY | 2024-11-08 19:25 | XMS_ITS | Encounter Summary ---
Author Organization [facility] Healthcare Address [address] [place] [address] Care Team Providers Care Political Research Scientist Name Role Phone Meir Fallon MD Primary Care Provider [phone] Encounter Details Date Type Department Care Team (Latest Contact Info) Description 07/29/2020 7:51 AM CDT - 07/29/2020 1:34 PM CDT Hospital Encounter [facility] Operating Room [address] [place] [address] Robson Osullivan MD [address] [place] [address] Mass of right hip region Discharge Disposition: Discharge to home or self care Social History Tobacco Use Types Packs/Day Years Used Date Smoking Tobacco: Former Cigarettes 0.5 10 0 11/13/2008 - 11/13/2018 Alcohol Use Standard Drinks/Week Comments Yes 0 (1 standard drink = 0.6 oz pur e alcohol) Comments No Sex and Gender Information Value Date Recorded Sex Assigned at Not on file Legal Sex Female 4:31 PM POT HOLDER BINDER Gender Identity Not on file Sexual Orientation Not on file documented as of this encounter Last Filed Vital Signs Vital Sign Reading Time Taken Comments Blood Pressure 118/67 07/29/2020 1:29 PM CDT Pulse 86 07/29/2020 1:29 PM CDT Temperature 36.4 ??C (97.6 ??F) 07/29/2020 1:29 PM CD T Respiratory Rate 16 07/29/2020 1:29 PM CDT Oxygen Saturation 96% 07/29/2020 1:29 PM CDT Inhaled Oxygen Concentration - - Weight 78.5 kg (173 lb 1 oz) 07/29/2020 7:58 AM CDT Height 162.6 cm (5' 4 ) 07/29/2020 7:58 AM CDT Body Mass Index 29.71 07/29/2020 7:58 AM CDT documented in this encounter Discharge Diagnoses Diagnosis Other specified soft tissue disorders - OTHER SPECIFIED SOFT TISSUE DISORDERS Other granulomatous disorders of the skin and subcutaneous tissue - OTHER GRANULOMATOUS DISORDERS OF THE SKIN AND SUBCUTANEOUS TISSUE Other terminal operations supervisor (current) drug therapy - OTHER PILOT BOAT CAPTAIN (CURRENT) DRUG THERAPY Personal history of nicotine dependence - PERSONAL HISTORY OF NICOTINE DEPENDENCE Allergy status to other antibiotic agents status - ALLERGY STATUS TO OTHER ANTIBIOTIC AGENTS STATUS Allergy status to narcotic agent status - ALLERGY STATUS TO NARCOTIC AGENT STATUS documented in this encounter Discharge Instructions [...] Care Everywhere. * General Anesthesia (Discharge Care) (Cypriot) * Jake-Norman Drain Care (Discharge Care) (Cypriot) * Hydrocodone/Acetaminophen (By mouth) (Cypriot) * Ondansetron (By mouth, Into the mouth) (Cypriot) * Laxative, Stool Softeners (By mouth) (Cypriot) documented in this encounter Medications at Time [...] file Gets together: Not on file Attends episcopalian service: Not on file Active member of [...] OF : 1985 SURGEON: Robson Osullivan MD GEM EXPERT:Top Case Assembler: Nida Terrazas RN Physician Technician Chemical Cleaning: Sofia Maldonado NP Scrub: ST Chata DATE [...] we had freed it from the underlying fascia and muscle we continued our dissection until it was completely freed at the base. We then freed somefurther edges in the apex until the lesion was completely freed. It measured roughly 6 x 4 x 3 cm. It was sent off for permanent section. At this time the cavity was copiously irrigated with saline. Hemostasis was achieved with cautery. The deep subcutaneous tissue was reapproximated with a running0 Vicryl stitch. A more superficial layer was closed with 3 0 Vicryl sutures taking care not to pucker the skin. A 7 Montserratian flat DAREN drain was then placed and brought out through a stab incision near the right hip region. This was secured in place with a 3 0 nylon suture. The subcuticular layer was then reapproximated with interrupted 3 0 Vicryl stitches. Dermabond was then applied. Our incision and drain were covered with 4 x 4 gauze and Medipore tape. The patient was awoken from anesthesia andtransferred to recovery in stable condition. At the [...] that you and your doctor have chosen [facility] for your surgery. We hope that [...] on file. ?? Use no make-up, nail vietnamese, lotions, oils or powders on your skin. [...] 07/29/2020 10:16 AM CDT Narrative [facility]Y [facility]) - 08/03/2020 11:10 AM CDT EPIC results best viewed via link to PDF [facility] Department of Pathology [address] [employer], [place] [id number] Final Report Patient Name: ??BARBARA FITZGERALD Address: ??[address] [place] [address], ??[place], [place] ??[address] Gender: ??F : ??1985 (Age: 35) Service: ??Surgery Location: ??[facility] Hospital #: ??[id number] Patient Type: ??[facility] SDS Accession # [id number] Taken: ??07/29/2020 Received: ??07/29/2020 Accessioned: ??07/29/2020 Reported: ??08/03/2020 Physician(s):oRbson Osullivan MD Diagnosis: Subcutaneous gluteal mass, excisional [...] submitted in a single container labeled Barbara R. Amilcar and subcutaneous gluteal mass . ??It is [...] determined by the Surgical Pathology Department at [facility] as part of an ongoing principal quality engineer program and in compliance with federally mandated [...] characteristics determined by the Surgical Pathology Department [facility]. ??It has not been cleared or approved by the U. S. Food and Drug Administration. Robson Osullivan MD LAB PATHOLOGY OR DERABLES Final Result PATHOLOGY [facility] ([place]) [address] [place] [address] * eGFR (07/29/2020 8:22 AM CDT) eGFR 125 mL/min/1.7 3 m2 SEBASTIEN [facility] ([place]) Comment: Interpretive Data Reference Interval Normal ?>/= 90 mL/min/1.73m2 Mildly decreased* ? 60 - 89 mL/min/1.73m2 Mildly to moderately decreased ?45 - 59 mL/min/1.73m2 Moderately to severely decreased ??30 - 44 mL/min/1.73m2 Severely decreased ?15 - 29 mL/min/1.73m2 Kidney Failure ?< 15 ??mL/min/1.73m2 *Relative to young adult level If -Samoan multiply value by 1.16. Estimated glomerular filtration [...] MD LAB BLOOD ORDERA BLES Final Result [facility] ([place] 1 [facility] Department [place] [address] * Differential, auto (07/29/2020 8:22 AM CDT) [...] revised on 2018. Monocyte pct 6.8 % [facility] ([facility]) Comment: Interpretive Data [...] BLES Final Result [facility] ([facility]) 1 [facility] Department [place] [address] * Antibody screen (07/29/2020 8:22 AM CDT) Celso, indirect, Gel Interpretation Negative ABSC [facility] ([facility]) Blood specimen (specimen) 07/29/2020 8:22 AM CDT 07/29/2020 8:24 AM CDT Narrative [facility] ([facility]) - 07/29/2020 9:03 AM CDT Has the patient had Daratumumab or Isatuximab in the past 6 months?->Unknown Robson Osullivan MD LAB BLOOD BANK T EST ORDERABLES Final Result Performing Organization Address [facility]/ZIP Co de Phone Number [facility] ([facility]) 1 [facility] [place] [address] * ABO/Rh (07/29/2020 8:22 AM CDT) Pathologist [facility] ABO/Rh A Positive [facility] ([facility]) Blood specimen (specimen) 07/29/2020 8:22 AM CDT 07/29/2020 8:24 AM CDT Narrative [facility] ([facility]) - 07/29/2020 8:46 AM CDT Has the patient had Daratumumab or Isatuximab in the past 6 months?->Unknown Robson Osullivan MD LAB BLOOD BANK T EST ORDERABLES Final Result Performing Organization Address [facility] Co de Phone Number [facility] 1 [facility] [place] [address] * CBC with auto differential (07/29/2020 8:22 AM CDT) Pathologist [facility] WBC 6.3 3.8 - 9.9 K/cumm [facility] ([facility]) Hgb 12.7 11.9 - 15.5 g/dL [facility] ([facility]) Hct 38.9 35.6 - 45.5 % [facility] Plt 292 150 - 400 K/cumm [facility] ([facility]) MPV 9.9 9.1 - 12.3 fL [facility] ([facility]) RBC 4.65 3.90 - 5.20 M/cumm [facility] ([facility] MCV 83.7 81.3 - 96.4 fL [facility] ([facility]) MCH 27.3 27.1 - 33.3 pg [facility] ([facility]) MCHC 32.6 32.3 - 35.7 g/dL [facility] ([facility]) RDW CV 12.7 11.1 - 14.9 % [facility] ([facility]) RDW SD 38.8 35.7 - 48.1 fL [facility] ([facility]) NRBC abs 0.00 0.00 - 0.01 K/cumm [facility] ([facility]) Blood specimen (specimen) 07/29/2020 8:22 AM CDT 07/29/2020 8:24 AM CDT Robson Osullivan MD LAB BLOOD ORDERA BLES Final Result [facility] ([facility]) 1 [facility] Department [place] [address] * (ABNORMAL) Basic metabolic panel (07/29/2020 8:22 AM CDT) Sodium 136 135 - 145 mmol/L [facility] ([facility]) Potassium, pl 4.0 3.3 - 4.9 mmol/L [facility] ([facility]) Chloride 103 97 - 110 mmol/L [facility] ([facility]) CO2 22 22 - 32 mmol/L [facility] ([facility]) Anion gap 11 2 - 15 mmol/L [facility] ([facility]) BUN 14 8 - 25 mg/dL [facility] ([facility]) Creatinine 0.49(L) 0.60 - 1.10 mg/dL [facility] ([facility]) Glucose 96 70 - 199 mg/dL [facility] ([facility]) Comment: Interpretive Data Fasting glucose >/= [...] 2017. Calcium 9.5 8.5 - 10.3 mg/dL [facility] ([facility]) Blood specimen (specimen) 07/29/2020 8:22 AM CDT 07/29/2020 8:24 AM CDT Robson Osullivan MD LAB BLOOD ORDERA BLES Final Result [facility] ([place]) 1 [facility] Department [place] [address] * POCT hCG, urine (07/29/2020 8:13 AM CDT) HCG, ur, POC Negative Lot Number [id number] QC Backgroud Clear Acceptable QC Control Line Acceptable Urine 07/29/2020 8:13 AM CDT Robson Osullivan MD POINT OF CARE TE ST ORDERABLES Final Result documented in this encounter Visit Diagnoses Diagnosis Mass of right hip region- Primary documented in this encounter Admitting Diagnoses Diagnosis Mass of right hip region documented in this encounter Administered Medications Inactive Administered Medications - up to 3 most recent administrations Medication Order MAR Action Action Date Dose Rate Site acetaminophen (TYLENOL) tablet 1,000 mg 1,000 mg, oral, Once, On Mon07/29/20 at 0830, For 1 dose, Pre-Op, Indications: Pre-Emptive AnalgesiaIndications:Pre-Emptive Analgesia Given 07/29/2020 8:19 AM CDT 1,000 mg celecoxib (CeleBREX) capsule 200 mg 200 mg, oral, Once, On Mon07/29/20 at 0830, For 1 dose, Pre-Op, Indications: Pre-Emptive AnalgesiaIndications:Pre-Emptive Analgesia Given 07/29/2020 8:19 AM CDT 200 [...] 8:19 AM CDT 30 mL/hr 30 mL/hr documented in this encounter Discontinued Medications Medication [...] Analgesia 0819 (Given - Provid er: Rafaela Leon, JULIA) celecoxib (CeleBREX) capsule 200 mg (COMPLETED) 200 mg, oral, Once, On Mon07/29/20 at 0830, For 1 dose, Pre-Op, Indications: Pre-Emptive Analgesia 0819 (Given - Provid er: Rafaela Leon, JULIA) HYDROcodone-acetaminophen (NORCO) 5-325 mg per tablet 1 [...] Count Last Ordered Date First Ordered Date bupivacaine-EPINEPHrine (MAR CHHAYA with EPI) 0.25 %-1:200,000 preservative free injection 1 07/29/2020 fentaNYL (SUBLIMAZE) 50 mcg/ mL preservative free injection - ADS Override Pull 07/29/2020 midazolam (VERSED) 1 mg/mL p reservative free injection - ADS Override Pull 07/29/2020 naloxone (NARCAN) 0.4 mg/mL injection 0.04-0.4 mg 1 07/29/2020 ondansetron (ZOFRAN) injection 4 mg 07/29 sodium chloride 0.9 % irrigation 1 07/29/20 sodium chloride 0.9% flush 0.5-20 mL 2 07/08 documented in this encounter Care Teams Political Research Scientist Relationship Specialty Start Date End Date Meir Fallon MD PCP - General 07/10/20 documented as of this encounter
--- OUTSIDE RECORDS SUMMARY | 2024-11-08 19:25 | XMS_ITS | Encounter Summary ---
Author Organization [facility] Healthcare Address [address] [place] [address] Care Team Providers Care Community Recreation Programmer Name Role Phone Unavailable Primary Care Provider Unavailabl e Encounter Details Date Type Department Care Team (Late st Contact Info) Description 06/17/2010 12:05 PM CDT - 06/17/2010 11:59 PM CDT Hospital Encounter [facility] Duglas Menjivar MD [address] [place] [address] [place] [address] Cough Social History Tobacco Use Types Packs/Day Years Used Date Smoking Tobacco: Never Assessed Comments Unknown Sex and Gender Information Value Date Recorded Sex Assigned at Not on file Legal Sex Female 4:31 PM LEGAL SERVICES MANAGER Gender Identity Not on file Sexual Orientation Not on file documented as of this encounter Plan of Treatment Not on file documented as of this encounter Visit Diagnoses Diagnosis Cough documented in this encounter
--- OUTSIDE RECORDS SUMMARY | 2024-11-08 19:25 | XMS_ITS | Encounter Summary ---
Author Organization [facility] Address [address] [place] [address] Care Team Providers Care Wheel Setter Name Role Phone Meir Fallon MD Primary Care Provider [phone] Reason for Visit * Reason Comments Mass Right buttocks Encounter Details Date Type Department Care Team (Late st Contact Info) Description 07/14/2020 11:30 AM CDT Office Visit [facility] [address] [place] [id number] Robson Osullivan MD [address] [place] [address] [address] [place] [address] Mass of right hip region (Primary Dx) Social History Tobacco Use Types Packs/Day Years Used Date Smoking Tobacco: Former Cigarettes 0.5 10 0 11/13/2008 - 11/13/2018 Alcohol Use Standard Drinks/Week Comments Yes 0 (1 standard drink = 0.6 oz pur e alcohol) Comments No Sex and Gender Information Value Date Recorded Sex Assigned at Not on file Legal Sex Female 4:31 PM AUDIO VISUAL DESIGN ENGINEER Gender Identity Not on file Sexual Orientation Not on file documented as of this encounter Last Filed Vital Signs Vital Sign Reading Time Taken Comments Blood Pressure 126/81 07/14/2020 11:40 AM CDT Pulse 90 07/14/2020 11:40 AM CDT Temperature 36.2 ??C (97.1 ??F) 07/14/2020 11:40 AM C DT Respiratory Rate - - Oxygen Saturation - - Inhaled Oxygen Concentration - - Weight 78.2 kg (172 lb 8 oz) 07/14/2020 11:40 AM CDT Height 162.6 cm (5' 4 ) 07/14/2020 11:40 AM CDT Body Mass Index 29.61 07/14/2020 11:40 AM CDT documented in this encounter Progress Notes * Robson Osullivan MD - 07/14/2020 11:30 AM CDT Images from the original note were not included. Surgery Consult Subjective: Patient Name: Patt Fitzgerald Date of Visit: 07/14/20 HPI: Patt Fitzgerald is a 35 y.o. female presenting [...] file Gets together: Not on file Attends hoahaoism service: Not on file Active member of [...] Plan Note - Robson Osullivan MD - 07/14/2020 1:59 PM CDTAssociated Problem(s): Mass of right hip region The patient may have had some fat [...] the bottom up. She is in understanding. documented in this encounter Plan of Treatment Not on file documented as of this encounter Visit Diagnoses Diagnosis Mass of right hip region- Primary documented in this encounter Care Teams Wheel Setter Relationship Specialty Start Date End Date Meir Fallon MD PCP - General 07/10/20 documented as of this encounter
--- OUTSIDE RECORDS SUMMARY | 2024-11-08 19:26 | XMS_ITS | Encounter Summary ---
Author Organization [facility] Healthcare Address [address] [place] [address] Care Team Providers Care Business Data Analyst Name Role Phone Unavailable Primary Care Provider Unavailabl e Encounter Details Date Type Department Care Team (Late st Contact Info) Description 08/23/2007 9:38 PM CDT - 08/23/2007 11:59 PM CDT Hospital Encounter [facility] Social History Tobacco Use Types Packs/Day Years Used Date Smoking Tobacco: Never Assessed Comments Unknown Sex and Gender Information Value Date Recorded Sex Assigned at Not on file Legal Sex Female 4:31 PM PHYSICIAN PRESIDENT Gender Identity Not on file Sexual Orientation Not on file documented as of this encounter Plan of Treatment Not on file documented as of this encounter Visit Diagnoses Not on filedocumented in this encounter
--- OUTSIDE RECORDS SUMMARY | 2024-11-08 19:26 | XMS_ITS | Encounter Summary ---
Author Organization [facility] Healthcare Address [address] [place] [address] Care Team Providers Care Special Procedure Tech Name Role Phone Unavailable Primary Care Provider Unavailabl e Encounter Details Date Type Department Care Team (Late st Contact Info) Description 08/12/2008 8:52 AM CDT - 08/12/2008 11:59 PM CDT Hospital Encounter [facility] Social History Tobacco Use Types Packs/Day Years Used Date Smoking Tobacco: Never Assessed Comments Unknown Sex and Gender Information Value Date Recorded Sex Assigned at Not on file Legal Sex Female 4:31 PM DIRECTOR OF FINANCIAL PLANNING Gender Identity Not on file Sexual Orientation Not on file documented as of this encounter Plan of Treatment Not on file documented as of this encounter Visit Diagnoses Not on filedocumented in this encounter
--- OUTSIDE RECORDS SUMMARY | 2024-11-08 19:26 | XMS_ITS | Encounter Summary ---
Author Organization [facility] Healthcare Address [address] [place] [address] Care Team Providers Care Western Felt Hat Blocker Name Role Phone Unavailable Primary Care Provider Unavailabl e Encounter Details Date Type Department Care Team (Late st Contact Info) Description 12/29/2009 12:46 PM ELECTRICAL ESTIMATOR - 12/29/2009 2:20 PM ELECTRICAL ESTIMATOR Hospital Encounter [facility] Edward Gonzales MD [address] [address] Sapna Robison MD [address] [place] [address] Chronic sinusitis; Simple chronic bronchitis (HCC); Tobacco use disorder Social History Tobacco Use Types Packs/Day Years Used Date Smoking Tobacco: Never Assessed Comments Unknown Sex and Gender Information Value Date Recorded Sex Assigned at Not on file Legal Sex Female 4:31 PM ELECTRICAL ESTIMATOR Gender Identity Not on file Sexual Orientation Not on file documented as of this encounter Plan of Treatment Not on file documented as of this encounter Visit Diagnoses Diagnosis Chronic sinusitis Unspecified sinusitis (chronic) Simple chronic bronchitis (HCC) Simple chronic bronchitis Tobacco use disorder documented in this encounter
--- OUTSIDE RECORDS SUMMARY | 2024-11-08 19:26 | XMS_ITS | Encounter Summary ---
Author Organization [facility] Healthcare Address [address] [place] [address] Care Team Providers Care Corduroy Cutting Supervisor Name Role Phone Unavailable Primary Care Provider Unavailabl e Encounter Details Date Type Department Care Team (Late st Contact Info) Description 12/21/2006 8:05 PM RACE CAR DRIVER - 12/21/2006 10:15 PM RACE CAR DRIVER Hospital Encounter [facility] Wilfrid Ward MD 1 [facility] [address] [place] [address] Phil Green MD [address] [place] [address] Social History Tobacco Use Types Packs/Day Years Used Date Smoking Tobacco: Never Assessed Comments Unknown Sex and Gender Information Value Date Recorded Sex Assigned at Not on file Legal Sex Female 4:31 PM RACE CAR DRIVER Gender Identity Not on file Sexual Orientation Not on file documented as of this encounter Plan of Treatment Not on file documented as of this encounter Visit Diagnoses Not on filedocumented in this encounter
--- OUTSIDE RECORDS SUMMARY | 2024-11-08 19:26 | XMS_ITS | Encounter Summary ---
Author Organization [facility] Healthcare Address [address] [place] [address] Care Team Providers Care Commercial Portfolio Manager Name Role Phone Unavailable Primary Care Provider Unavailabl e Encounter Details Date Type Department Care Team (Late st Contact Info) Description 02/05/2008 7:17 PM CDT - 02/05/2008 11:59 PM CDT Hospital Encounter [facility] Social History Tobacco Use Types Packs/Day Years Used Date Smoking Tobacco: Never Assessed Comments Unknown Sex and Gender Information Value Date Recorded Sex Assigned at Not on file Legal Sex Female 4:31 PM CONTINUOUS IMPROVEMENT DIRECTOR Gender Identity Not on file Sexual Orientation Not on file documented as of this encounter Plan of Treatment Not on file documented as of this encounter Visit Diagnoses Not on filedocumented in this encounter
--- OUTSIDE RECORDS SUMMARY | 2024-11-08 19:26 | XMS_ITS | Encounter Summary ---
Author Organization [facility] Healthcare Address [address] [place] [address] Care Team Providers Care Brand Ambassador Promotional Model Name Role Phone Unavailable Primary Care Provider Unavailabl e Encounter Details Date Type Department Care Team (Late st Contact Info) Description 08/18/2007 7:47 PM CDT - 08/18/2007 9:05 PM CDT Hospital Encounter [facility] Noah Joseph Social History Tobacco Use Types Packs/Day Years Used Date Smoking Tobacco: Never Assessed Comments Unknown Sex and Gender Information Value Date Recorded Sex Assigned at Not on file Legal Sex Female 4:31 PM RENEWALS MANAGER Gender Identity Not on file Sexual Orientation Not on file documented as of this encounter Plan of Treatment Not on file documented as of this encounter Visit Diagnoses Not on filedocumented in this encounter
--- OUTSIDE RECORDS SUMMARY | 2024-11-08 19:26 | XMS_ITS | Encounter Summary ---
Author Organization [facility] Healthcare Address [address] [place] [address] Care Team Providers Care Clinical Cytogeneticist Scientist Name Role Phone Unavailable Primary Care Provider Unavailabl e Encounter Details Date Type Department Care Team (Late st Contact Info) Description 03/24/2010 8:45 PM CDT - 03/24/2010 11:59 PM CDT Hospital Encounter [facility] Social History Tobacco Use Types Packs/Day Years Used Date Smoking Tobacco: Never Assessed Comments Unknown Sex and Gender Information Value Date Recorded Sex Assigned at Not on file Legal Sex Female 4:31 PM BLINDSTITCH LAPEL PADDER Gender Identity Not on file Sexual Orientation Not on file documented as of this encounter Plan of Treatment Not on file documented as of this encounter Visit Diagnoses Not on filedocumented in this encounter
--- OUTSIDE RECORDS SUMMARY | 2024-11-08 19:26 | XMS_ITS | Encounter Summary ---
Author Organization [facility] Healthcare Address [address] [place] [address] Care Team Providers Care Concert Singer Name Role Phone Unavailable Primary Care Provider Unavailabl e Encounter Details Date Type Department Care Team (Late st Contact Info) Description 03/14/2008 8:51 AM CDT - 03/14/2008 1:11 PM CDT Hospital Encounter [facility] Behzad De Santiago Social History Tobacco Use Types Packs/Day Years Used Date Smoking Tobacco: Never Assessed Comments Unknown Sex and Gender Information Value Date Recorded Sex Assigned at Not on file Legal Sex Female 4:31 PM CREDIT CHECKER Gender Identity Not on file Sexual Orientation Not on file documented as of this encounter Plan of Treatment Not on file documented as of this encounter Visit Diagnoses Not on filedocumented in this encounter
--- OUTSIDE RECORDS SUMMARY | 2024-11-08 19:26 | XMS_ITS | Encounter Summary ---
Author Organization [facility] Healthcare Address [address] [place] [address] Care Team Providers Care Field Technical Specialist Name Role Phone Unavailable Primary Care Provider Unavailabl e Encounter Details Date Type Department Care Team (Late st Contact Info) Description 03/17/2009 9:03 AM CDT - 03/17/2009 11:59 PM CDT Hospital Encounter [facility] Social History Tobacco Use Types Packs/Day Years Used Date Smoking Tobacco: Never Assessed Comments Unknown Sex and Gender Information Value Date Recorded Sex Assigned at Not on file Legal Sex Female 4:31 PM DATA OFFICER Gender Identity Not on file Sexual Orientation Not on file documented as of this encounter Plan of Treatment Not on file documented as of this encounter Visit Diagnoses Not on filedocumented in this encounter
--- OUTSIDE RECORDS SUMMARY | 2024-11-08 19:26 | XMS_ITS | Encounter Summary ---
Author Organization [facility] Healthcare Address [address] [place] [address] Care Team Providers Care Academic Advising Director Name Role Phone Unavailable Primary Care Provider Unavailabl e Encounter Details Date Type Department Care Team (Late st Contact Info) Description 04/20/2008 9:00 PM CDT - 04/20/2008 10:17 PM CDT Hospital Encounter [facility] Edward Phillips MD [address] [address] Sapna Robison MD [address] [place] [address] Social History Tobacco Use Types Packs/Day Years Used Date Smoking Tobacco: Never Assessed Comments Unknown Sex and Gender Information Value Date Recorded Sex Assigned at Not on file Legal Sex Female 4:31 PM REGIONAL MARKETING DIRECTOR Gender Identity Not on file Sexual Orientation Not on file documented as of this encounter Plan of Treatment Not on file documented as of this encounter Visit Diagnoses Not on filedocumented in this encounter
--- OUTSIDE RECORDS SUMMARY | 2024-11-08 19:45 | XMS_ITS | Encounter Summary ---
Author Organization [facility] Address [address] [place] [address] Care Team Providers Care Color Drum Worker Name Role Phone Unavailable Primary Care Provider Unavailabl e Reason for Visit * Reason Onset Date Comments Follow-up 09/25/2016 Encounter Details Date Type Department Care Team (Late st Contact Info) Description 09/25/2016 Telephone [facility] AT [address] [address] Bessie Glover, CEMENTER-MANAGER OF ALLIED HEALTH SERVICES [address] [address] Follow-up Social History Tobacco Use [...]
--- OUTSIDE RECORDS SUMMARY | 2024-11-08 19:45 | XMS_ITS | Encounter Summary ---
Author Organization [facility] Address [address] [place] [address] Care Team Providers Care Silver Steward Name Role Phone Unavailable Primary Care Provider Unavailabl e Reason for Visit * Reason Comments Cough Encounter Details Date Type Department Care Team (Late st Contact Info) Description 10/02/2016 2:40 PM POSTAL CARRIER Office Visit [facility] AT [address] [address] Provider, Rain Exp Namedei Acute bronchitis, unspecified organism (Primary Dx); Other [...] Comments Blood Pressure 118/75 10/02/2016 3:32 PM POSTAL CARRIER Pulse 88 10/02/2016 3:32 PM POSTAL CARRIER Temperature 36.8 ??C (98.2 ??F) 10/02/2016 3:32 PM CS T Respiratory Rate 16 10/02/2016 3:32 PM POSTAL CARRIER Oxygen Saturation - - Inhaled Oxygen Concentration - - Weight 61.2 kg (135 lb) 10/02/2016 3:32 PM POSTAL CARRIER Height 162.6 cm (5' 4 ) 10/02/2016 3:32 PM POSTAL CARRIER Body Mass Index 23.17 10/02/2016 3:32 PM POSTAL CARRIER documented in this encounter Patient Instructions * Patient Instructions* Kimberly Rowan APRN-CNP - 10/02/2016 3:32 PM POSTAL CARRIER Presents today for follow up for coughing, wheezing symptoms. Treated for similar symptoms on 09/22with Z-andere, Prednisone and Albuterol; pt finished medications as prescribed but symptoms have not improved. Pt is currently a 1/2 ppd smoker but states has not smoked for approximately 1 week. On physical exam, LS diminished to LLF/RLF with insp wheezes/rhonchi to RMF/LMF. Recommend that pt seek treatment at ER for further evaluation. AL CARRIER documented in this encounter Progress Notes * [...] without delay for further evaluation of symptoms. AL CARRIER documented in this encounter Plan of Treatment [...]
--- OUTSIDE RECORDS SUMMARY | 2024-11-08 19:45 | XMS_ITS | Referral Summary ---
Author Organization [facility] Address [address] [place] [address] Care Team Providers Care Summer Associate Name Role Phone Meir Fallon MD Primary Care Provider +1 [phone] Encounters Date Type Department Care Team Description 09/28/2024 12:38 PM LIFE SCIENCES MANAGER - 09/28/2024 4:08 PM LIFE SCIENCES MANAGER Emergency [facility] Emergency Department 1 [place] [address] Orlando Nava MD Burnside, David W., MD [...] (07/14/2020): Added automatically from request for surgery [id number] Assessment & Plan (08/13/2020 11:15 AM CDT): [...] on file Legal Sex Female 4:31 PM LIFE SCIENCES MANAGER Gender Identity Not on file Sexual Orientation Not on file Last Filed Vital Signs Vital Sign Reading Time Taken Comments Blood Pressure 113/68 09/28/2024 3:30 PM LIFE SCIENCES MANAGER Pulse 90 09/28/2024 3:30 PM LIFE SCIENCES MANAGER Temperature 37 ??C (98.6 ??F) 09/28/2024 3:11 PM LIFE SCIENCES MANAGER Respiratory Rate 16 09/28/2024 3:30 PM LIFE SCIENCES MANAGER Oxygen Saturation 100% 09/28/2024 3:30 PM LIFE SCIENCES MANAGER Inhaled Oxygen Concentration - - Weight 65.8 kg (145 lb) 09/28/2024 12:36 PM LIFE SCIENCES MANAGER Height 162.6 cm (5' 4 ) 09/28/2024 12:36 PM LIFE SCIENCES MANAGER Body Mass Index 24.89 09/28/2024 12:36 PM LIFE SCIENCES MANAGER Plan of Treatment Not on file Procedures Procedure Name Priority Date/Time Associated Diagnosis Comments CT ABDOMEN PELVIS W CONTRAST ED 09/28/2024 2:38 PM LIFE SCIENCES MANAGER URINALYSIS, MICROSCOPIC ONLY STAT 09/28/2024 12:57 PM LIFE SCIENCES MANAGER DIFFERENTIAL AUTO STAT 09/28/2024 12: 57 PM LIFE SCIENCES MANAGER HCG, BLOOD, QUANTITATIVE STAT 09/28/2024 12:57 PM LIFE SCIENCES MANAGER CBC WITH AUTO DIFFERENTIAL STAT 09/28/2024 12:57 PM LIFE SCIENCES MANAGER URINALYSIS AND REFLEX TO MICROSCOPIC AND CULTURE STAT 09/28/2024 12:57 PM LIFE SCIENCES MANAGER from Last 3 Months Results * CT Abdomen Pelvis W Contrast (09/28/2024 2:38 PM LIFE SCIENCES MANAGER) Anatomical Region Laterality Modality Body N/A Computed Tomogra phy 09/28/2024 3:10 PM LIFE SCIENCES MANAGER Narrative 09/28/2024 3:35 PM LIFE SCIENCES MANAGER EXAM DESCRIPTION: ?? CT ABDOMEN PELVIS W [...] PM T: ??09/28/2024 3:35 PM Report ID: [id number] Reading Location: ??[id number] Procedure Note Meño Bone MD - 09/28/2024 [...] signed by Meño PADILLA: VALERIE Report ID: [id number] Reading Location: [place] [address] Orlando Nava MD [facility] PROCEDURES Final Resu lt * Differential, auto (09/28/2024 12:57 PM LIFE SCIENCES MANAGER) Neutrophil abs 3.0 1.5 - 6.5 K/cumm [...] on 2018. Blood 09/28/2024 12:5 7 PM LIFE SCIENCES MANAGER 09/28/2024 1:01 PM LIFE SCIENCES MANAGER us Orlando Nava MD LAB BLOOD ORDERABLES Final R esult [facility] ([place]) 1 [facility] [employer] [place] [address] * (ABNORMAL) Urinalysis reflex to microscopic and culture Urine (09/28/2024 12:57 PM LIFE SCIENCES MANAGER) Color, ur Yellow Yellow Clarity, ur Clear [...] tendency for uric acid stone formation. Source: [facility] [employer] Current Interpretive Data was last revised on [...] [facility] ([place]) Urine 09/28/2024 12:5 7 PM LIFE SCIENCES MANAGER 09/28/2024 1:01 PM LIFE SCIENCES MANAGER us Orlando Nava MD LAB MICROBIOLOGY - GENERAL O RDERABLES Final Result [facility] ([place]) 1 [facility] [employer] [place] [address] * CBC with auto differential (09/28/2024 12:57 PM LIFE SCIENCES MANAGER) WBC 5.9 3.8 - 9.9 K/cumm Hgb 12.5 11.9 - 15.5 g/dL [facility] ([place]) Hct 38.4 35.6 - 45.5 % [facility] ([place]) Plt 254 150 - 400 K/cumm [facility] ([place]) MPV 9.4 9.1 - 12.3 fL [facility] ([place]) RBC 4.48 3.90 - 5.20 M/cumm [facility] ([place]) MCV 85.7 81.3 - 96.4 fL [facility] ([place]) MCH 27.9 27.1 - 33.3 pg [facility] ([place]) MCHC 32.6 32.3 - 35.7 g/dL [facility] ([place]) RDW CV 12.3 11.1 - 14.9 % [facility] ([place]) RDW SD 38.5 35.7 - 48.1 fL [facility] ([place]) NRBC abs 0.00 0.00 - 0.01 K/cumm [facility] ([place]) Blood 09/28/2024 12:5 7 PM LIFE SCIENCES MANAGER 09/28/2024 1:01 PM LIFE SCIENCES MANAGER us Orlando Nava MD LAB BLOOD ORDERABLES Final R esult [facility] ([place]) 1 [facility] [place] [address] * (ABNORMAL) Urinalysis, microscopic only (09/28/2024 12:57 PM LIFE SCIENCES MANAGER) WBC, ur 0-5 0 - 5 /HPF RBC, ur 11-20(A) 0 - 2 /HPF [facility] ([place]) Epithelial cells, squamous, ur 1-5 0 - 5 /HPF [facility] ([place]) Mucous, ur Present(A) [facility] ([place]) Culture Reflex Comment Reflex conditions for urine culture (WBC >10) not met. [facility] ([place]) Urine 09/28/2024 12:5 7 PM LIFE SCIENCES MANAGER 09/28/2024 1:01 PM LIFE SCIENCES MANAGER Orlando Nava MD LAB URINE ORDERABLES Final R esult [facility] ([place]) 1 [facility] [place] [address] * hCG, blood, quantitative (09/28/2024 12:57 PM LIFE SCIENCES MANAGER) hCG, quant <5.0 0.0 - 5.0 IUnits/L Comment: Interpretive Data Male: < 5 IU/L Non- premenopausal Female: <5 IU/L The [employer] hCG Beta Quant assay procedure was used. Results from different manufacturers or methods may not be comparable. ??Serial testing should be performed using the same method. Interpretive Data was last revised on 2023 Blood 09/28/2024 12:5 7 PM LIFE SCIENCES MANAGER 09/28/2024 1:01 PM LIFE SCIENCES MANAGER Orlando Nava MD LAB BLOOD ORDERABLES Edited Result - Final Performing Organization Address City/[facility]/ZIP Co de Phone Number [facility] ([place]) 1 [facility] [place] [place] [address] from Last 3 Months Insurance [facility] CHOICE PLUS R [facility] Care Teams Summer Associate Relationship Specialty Start Date End Date Meir Fallon MD PCP - General 07/10/20
--- OUTSIDE RECORDS SUMMARY | 2024-11-08 19:45 | XMS_ITS | Clinical Summary ---
Author Organization [facility] Address [address] [place] [address] Care Team Providers Care Boardinghouse Keeper Name Role Phone Unavailable Primary Care Provider Unavailabl e Source Comments [facility],non-owned Affiliates and Associated Physician Practices is amultiple site organization consisting of ambulatory clinics and hospital sitesin [place], [place], [place] and [place]. This disclosure is being madepursuant to the Care Everywhere program and may not contain all information available regarding this patient. Last updated 18.[facility] Allergies Active Allergy Reactions Criticality Noted Date [...] Comments Blood Pressure 118/75 10/02/2016 3:32 PM BODY MAKER Pulse 88 10/02/2016 3:32 PM BODY MAKER Temperature 36.8 ??C (98.2 ??F) 10/02/2016 3:32 PM CS T Respiratory Rate 16 10/02/2016 3:32 PM BODY MAKER Oxygen Saturation - - Inhaled Oxygen Concentration - - Weight 61.2 kg (135 lb) 10/02/2016 3:32 PM BODY MAKER Height 162.6 cm (5' 4 ) 10/02/2016 3:32 PM BODY MAKER Body Mass Index 23.17 10/02/2016 3:32 PM BODY MAKER Plan of Treatment Health Maintenance Due Date [...]
--- OUTSIDE RECORDS SUMMARY | 2024-11-08 19:45 | XMS_ITS | Encounter Summary ---
Author Organization [facility] Healthcare Address [address] [place] [address] Care Team Providers Care Target Setter Name Role Phone Meir Fallon MD Primary Care Provider [phone] [phone] Reason for Referral * MRI/CAT/PET Scan (Routine) - Closed Specialty Diagnoses / Procedures Referred By Contac t Referred To Contact Diagnoses Right knee pain, unspecified chronicity Procedures MRI Knee Right WO Contrast Joe Vuong MD [address] [place] [address] [address] [address] Phone: tel: External Order Referral ID Status Reason Start Date Expiration Date Visits Re quested Visits Authorized [id number] Closed 03/05/2024 04/04/2025 1 1 Reason for Visit * Reason Comments Pain Encounter Details Date Type Department Care Team (Late st Contact Info) Description 03/05/2024 9:00 AM CDT Office Visit [facility] Orthopedics and Sports Medicine [address] [address] [facility] [address] [place] [phone] Joe Vuong MD [address] [place] [address] [address] [place] [address] Right knee pain, unspecified chronicity (Primary Dx); [...] on file Legal Sex Female 4:31 PM ROD FILLER Gender Identity Not on file Sexual Orientation [...] encounter documented in this encounter Care Teams Target Setter Relationship Specialty Start Date End Date Meir Fallon MD PCP - General 07/10/20 documented as of this encounter
--- OUTSIDE RECORDS SUMMARY | 2024-11-08 19:45 | XMS_ITS | Encounter Summary ---
Author Organization [facility] Healthcare Address [address] [place] [address] Care Team Providers Care Jboss Architect Name Role Phone Meir Fallon MD Primary Care Provider +1 [phone] Encounter Details Date Type Department Care Team [...] on file Legal Sex Female 4:31 PM PILOT SUBMERSIBLE Gender Identity Not on file Sexual Orientation [...] on filedocumented in this encounter Care Teams Jboss Architect Relationship Specialty Start Date End Date Meir Fallon MD PCP - General 07/10/20 documented as of this encounter
--- OUTSIDE RECORDS SUMMARY | 2024-11-08 19:45 | XMS_ITS | Encounter Summary ---
Author Organization [facility] Healthcare Address [address] [place] [address] Care Team Providers Care Shower Screen Installer Name Role Phone Meir Fallon MD Primary Care Provider +1 [phone] Reason for Visit * Reason Comments Flank Pain Encounter Details Date Type Department Care Team (Late st Contact Info) Description 09/28/2024 12:[address] REFEREE - 09/28/2024 4:[address] REFEREE Emergency [facility] Emergency Department 1 [place] [address] Orlando Nava MD 1 [place] [address] Edward Gonzales MD [address] [place] [address] Flank pain (Primary Dx); Lumbar radiculopathy Discharge [...] on file Legal Sex Female 4:[address] REFEREE Gender Identity Not on file Sexual Orientation Not on file documented as of this encounter Last Filed Vital Signs Vital Sign Reading Time Taken Comments Blood Pressure 113/68 09/28/2024 3:[address] REFEREE Pulse 90 09/28/2024 3:[address] REFEREE Temperature 37 ??C (98.6 ??F) 09/28/2024 3:[address] REFEREE Respiratory Rate 16 09/28/2024 3:[address] REFEREE Oxygen Saturation 100% 09/28/2024 3:[address] REFEREE Inhaled Oxygen Concentration - - Weight 65.8 kg (145 lb) 09/28/2024 12:[address] REFEREE Height 162.6 cm (5' 4 ) 09/28/2024 12:[address] REFEREE Body Mass Index 24.89 09/28/2024 12:[address] REFEREE documented in this encounter Discharge Instructions * Attachments The following attachments cannot be sent through Care Everywhere. * Back and Neck Pain, General (Armenian) * Flank Pain, Uncertain Cause (Armenian) documented in this encounter Medications at Time [...] Differential diagnosis: Kidney stone, UTI, abdominal infection, commercial diver abnormality. Pending CT scan. Risk Prescription drug management. ED Course as of 09/28/24 1400 Time: 09/28 1400 Comment: Dr. Gonzales taking over care. By: Orlando Nava MD Final diagnoses: Flank pain Orlando Nava MD 09/28/[address] REFEREE * Michelle Randall RN - 09/28/2024 12:35 PM CST Pt to the ED with c/o left sided flank pain x 1 week. Pt reports frequent vaginal bleeding. FIC COURT REFEREE documented in this encounter Miscellaneous Notes * ED Re-evaluation Note - Edward Gonzales MD - 09/28/2024 3:[address] REFEREE ED Re-evaluation Took over for Dr. 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 there is some spasm and pain in the lumbar muscles I think she has got a pinched nerve in the upper L-spine given that overnight when the vertebral discs rehydrate she would have more room for the nerves and has a day goes on it will get worse Edward Gonzales MD 09/28/[address] REFEREE documented in this encounter Plan of Treatment Not on file documented as of this encounter Procedures Procedure Name Priority Date/Time Associated Diagnosis Comments CT ABDOMEN PELVIS W CONTRAST ED 09/28/2024 2:[address] REFEREE DIFFERENTIAL AUTO STAT 09/28/2024 12: [address] REFEREE URINALYSIS AND REFLEX TO MICROSCOPIC AND CULTURE STAT 09/28/2024 12:[address] REFEREE CBC WITH AUTO DIFFERENTIAL STAT 09/28/2024 12:[address] REFEREE URINALYSIS, MICROSCOPIC ONLY STAT 09/28/2024 12:[address] REFEREE HCG, BLOOD, QUANTITATIVE STAT 09/28/2024 12:[address] REFEREE documented in this encounter Results * CT Abdomen Pelvis W Contrast (09/28/2024 2:[address] REFEREE) Anatomical Region Laterality Modality Body N/A Computed Tomogra phy 09/28/2024 3:[address] REFEREE Narrative 09/28/2024 3:[address] REFEREE EXAM DESCRIPTION: ?? CT ABDOMEN PELVIS W [...] PM T: ??09/28/2024 3:35 PM Report ID: [id number] Reading Location: ??[id number] Procedure Note Meño Bone MD - 09/28/2024 [...] Meño Bone M.D. JA: VALERIE Report ID: [id number] Reading Location: [id number] Orlando Nava MD IM CT PROCEDURES Final Resu lt * (ABNORMAL) Urinalysis, microscopic only (09/28/2024 12:[address] REFEREE) WBC, ur 0-5 0 - 5 /HPF RBC, ur 11-20(A) 0 - 2 /HPF [facility] ([place]) Epithelial cells, squamous, ur 1-5 0 - 5 /HPF [facility] ([place]) Mucous, ur Present(A) [facility] ([place]) Culture Reflex Comment Reflex conditions for urine culture (WBC >10) not met. [facility] ([place]) Urine 09/28/2024 12:[address] REFEREE 09/28/2024 1:[address] REFEREE us Orlando Nava MD LAB URINE ORDERABLES Final R esult [facility] ([place]) 1 [facility] Department [place] [address] * Differential, auto (09/28/2024 12:[address] REFEREE) Neutrophil abs 3.0 1.5 - 6.5 K/cumm Imm gran abs 0.0 0.0 - 0.1 K/cumm [facility] ([place]) Lymphocyte abs 2.3 0.8 - 3.3 K/cumm [facility] ([place]) Monocyte abs 0.4 0.2 - 0.8 K/cumm [facility] ([place]) Eosinophil abs 0.2 0.0 - 0.5 K/cumm [facility] ([place]) Basophil abs 0.1 0.0 - 0.1 K/cumm [facility] ([place]) Neutrophil pct 51.0 % [facility] ([place]) Comment: Interpretive Data Percent cell count reference ranges are not reported, since discordance with absolute values may lead to misinterpretation of CBC data. Current Interpretive Data was last revised on 2018. Imm gran pct 0.0 % [facility] ([place]) Comment: Interpretive Data Percent cell count reference [...] on 2018. Blood 09/28/2024 12:[address] REFEREE 09/28/2024 1:[address] REFEREE Orlando Nava MD LAB BLOOD ORDERABLES Final R esult [facility] ([place]) 1 [facility] Department [place] [address] * (ABNORMAL) Urinalysis reflex to microscopic and culture Urine (09/28/2024 12:[address] REFEREE) Color, ur Yellow Yellow Clarity, ur Clear Clear [facility] ([place]) Specific gravity, ur 1.025 1.003 - 1.030 [...] tendency for uric acid stone formation. Source: [facility] [employer] Current Interpretive Data was last revised on [...] [facility] ([place]) Urine 09/28/2024 12:[address] REFEREE 09/28/2024 1:[address] REFEREE Orlando Nava MD LAB MICROBIOLOGY - GENERAL O RDERABLES Final Result Performing Organization Address [facility] Co de Phone Number [facility] ([place]) 1 [facility] [place] [address] * hCG, blood, quantitative (09/28/2024 12:[address] REFEREE) Pathologist [facility] hCG, quant <5.0 0.0 - 5.0 IUnits/L Comment: Interpretive Data Male: < 5 IU/L Non- premenopausal Female: <5 IU/L The [employer] hCG Beta Quant assay procedure was used. Results from different manufacturers or methods may not be comparable. ??Serial testing should be performed using the same method. Interpretive Data was last revised on 2023 Blood 09/28/2024 12:[address] REFEREE 09/28/2024 1:[address] REFEREE Orlando Nava MD LAB BLOOD ORDERABLES Edited Result - Final Performing Organization Address City/[facility]/ZIP Co de Phone Number [facility] ([place]) 1 [facility] [place] [address] * CBC with auto differential (09/28/2024 12:[address] REFEREE) Pathologist [facility] WBC 5.9 3.8 - 9.9 K/cumm Hgb [...] [facility] ([place]) Blood 09/28/2024 12:[address] REFEREE 09/28/2024 1:[address] REFEREE us Orlando Nava MD LAB BLOOD ORDERABLES Final R esult [facility] ([place]) 1 [facility] Department of Laboratories [place], [place] [id number] documented in this encounter Visit Diagnoses Diagnosis [...] 1 dose Contrast Given 09/28/2024 2:[address] REFEREE 75 mL ketorolac (TORADOL) 30 mg/mL injection 30 mg 30 mg, intravenous, Once, On 09/28/24 at 1251, For 1 dose, For Adult IV push, administer over 15 seconds Given 09/28/2024 12:[address] REFEREE 30 mg documented in this encounter Active and Recently Administered Medications Times are shown in TRAFFIC COURT REFEREE. Scheduled Medication Order 09/26/2024 09/27/2024 09/28/2024 ketorolac [...] RT) documented in this encounter Care Teams Shower Screen Installer Relationship Specialty Start Date End Date Meir Fallon MD PCP - General 07/10/20 documented as of this encounter
--- OUTSIDE RECORDS SUMMARY | 2024-11-08 19:45 | XMS_ITS | Encounter Summary ---
Author Organization [facility] Address [address] [place] [address] Care Team Providers Care Plumber Apprentice Name Role Phone Unavailable Primary Care Provider Unavailabl e Reason for Visit * Reason Comments Congestion Headache Encounter Details Date Type Department Care Team (Late st Contact Info) Description 09/23/2016 6:00 PM LOGISTICAL ENGINEER Office Visit [facility] AT [address] [address] Provider, Rain Exp Namecti Acute bronchitis, unspecified organism (Primary Dx); Abnormal [...] Comments Blood Pressure 106/68 09/23/2016 2:39 PM LOGISTICAL ENGINEER Pulse 91 09/23/2016 2:39 PM LOGISTICAL ENGINEER Temperature 37.2 ??C (98.9 ??F) 09/23/2016 2:39 PM CS T Respiratory Rate 18 09/23/2016 2:39 PM LOGISTICAL ENGINEER Oxygen Saturation - - Inhaled Oxygen Concentration - - Weight 61.2 kg (135 lb) 09/23/2016 2:39 PM LOGISTICAL ENGINEER Height 162.6 cm (5' 4 ) 09/23/2016 2:39 PM LOGISTICAL ENGINEER Body Mass Index 23.17 09/23/2016 2:39 PM LOGISTICAL ENGINEER documented in this encounter Patient Instructions * Patient Instructions* Bessie Glover APRN-CNP - 09/23/2016 2:53 PM LOGISTICAL ENGINEER Images from the original note were not [...] hard to breathe or swallow. ?? 2015 [employer]. Information is for End User's use only and may not be sold, redistributed or otherwise used for commercial purposes. All illustrations and images included in CareNotes?? are the copyrighted property of [employer].A[employer] Inc[employer] or [employer]. The above information is an diet aide only. It is not intended as medical advice for individual conditions or treatments. Talk to your doctor, nurse or pharmacist before following any medical regimen to see if it is safe and effective for you. STICAL ENGINEER documented in this encounter Progress Notes * [...] up with PCP or return to clinic STICAL ENGINEER documented in this encounter Plan of Treatment Not on file documented as of this encounter Visit Diagnoses Diagnosis Acute bronchitis, unspecified organism- Primary Abnormal chest sounds Acute non-recurrent maxillary sinusitis documented in this encounter
--- OUTSIDE RECORDS SUMMARY | 2024-11-08 19:45 | XMS_ITS | Encounter Summary ---
Author Organization [facility] Healthcare Address [address] [place] [address] Care Team Providers Care Value Advisor Name Role Phone Meir Fallon MD Primary Care Provider +1 [phone] Encounter Details Date Type Department Care Team (Late st Contact Info) Description 03/19/2024 Telephone [facility] Medical Group Orthopedics and Sports Medicine [address] [place] [address] [address] [place] [phone] Joe Vuong MD [address] [place] [address] [address] [place] [address] Social History Tobacco Use Types Packs/Day Years Used Date Smoking Tobacco: Former Cigarettes 0.5 10 0 11/13/2008 - 11/13/2018 Smokeless Tobacco: Never Alcohol Use Standard Drinks/Week Comments Yes 0 (1 standard drink = 0.6 oz pur e alcohol) Comments No Sex and Gender Information Value Date Recorded Sex Assigned at Not on file Legal Sex Female 4:31 PM OCCASIONAL BABYSITTER Gender Identity Not on file Sexual Orientation [...] MRI DISC UPLOADED. Please reach out to [facility] to collect report and call patient with results. Call back # [phone] documented in this encounter Plan of Treatment Not on file documented as of this encounter Visit Diagnoses Not on filedocumented in this encounter Care Teams Value Advisor Relationship Specialty Start Date End Date Meir Fallon MD PCP - General 07/10/20 documented as of this encounter
--- OUTSIDE RECORDS SUMMARY | 2024-11-08 19:45 | XMS_ITS | Referral Summary ---
Author Organization [facility] Segment Address [address] [place] [address] Care Team Providers Care Legal Support Analyst Name Role Phone Unavailable Primary Care Provider Unavailabl e Source Comments [facility],non-owned Affiliates and Associated Physician Practices is amultiple site organization consisting of ambulatory clinics and hospital sitesin [place], [place], [place] and [place]. This disclosure is being madepursuant to the Care Everywhere program and may not contain all information available regarding this patient. Last updated 18.[facility] Segment Allergies Active Allergy Reactions Criticality Noted Date [...] Comments Blood Pressure 118/75 10/02/2016 3:32 PM BAND SAW OPERATOR Pulse 88 10/02/2016 3:32 PM BAND SAW OPERATOR Temperature 36.8 ??C (98.2 ??F) 10/02/2016 3:32 PM CS T Respiratory Rate 16 10/02/2016 3:32 PM BAND SAW OPERATOR Oxygen Saturation - - Inhaled Oxygen Concentration - - Weight 61.2 kg (135 lb) 10/02/2016 3:32 PM BAND SAW OPERATOR Height 162.6 cm (5' 4 ) 10/02/2016 3:32 PM BAND SAW OPERATOR Body Mass Index 23.17 10/02/2016 3:32 PM BAND SAW OPERATOR Plan of Treatment Not on file
--- OUTSIDE RECORDS SUMMARY | 2024-11-08 19:45 | XMS_ITS | Patient Health Summary ---
Author Organization [facility] Address [address] [place] [address] Care Team Providers Care Shearing Machine Feeder Name Role Phone Unavailable Primary Care Provider Unavailabl e Note from [facility],non-owned Affiliates and Associated Physician Practices is amultiple site organization consisting of ambulatory clinics and hospital sitesin [place], [place] and [place]. This disclosure is being madepursuant to the Care Everywhere program and may not contain all information available regarding this patient. Last updated 18.[facility] Allergies * Amoxicillin Medications * Be aware [...] Comments Blood Pressure 118/75 10/02/2016 3:32 PM SCHOLASTIC APTITUDE TEST GRADER Pulse 88 10/02/2016 3:32 PM SCHOLASTIC APTITUDE TEST GRADER Temperature 36.8 ??C (98.2 ??F) 10/02/2016 3:32 PM CS T Respiratory Rate 16 10/02/2016 3:32 PM SCHOLASTIC APTITUDE TEST GRADER Oxygen Saturation - - Inhaled Oxygen Concentration - - Weight 61.2 kg (135 lb) 10/02/2016 3:32 PM SCHOLASTIC APTITUDE TEST GRADER Height 162.6 cm (5' 4 ) 10/02/2016 3:32 PM SCHOLASTIC APTITUDE TEST GRADER Body Mass Index 23.17 10/02/2016 3:32 PM SCHOLASTIC APTITUDE TEST GRADER Procedures * PULSE OXIMETRY - POINT OF CARE (AMB)(Performed 10/02/2016) Performed for Acute bronchitis, unspecified organism Results * PULSE OXIMETRY - POINT OF CARE (AMB) (10/02/2016) Oximetry POCT 99% 0 - 100 % QC Verified Yes Yes Blood BLOOD SPECIMEN / Unknown 10/02/2016 Kimberly Rowan APRN-RETAIL DIRECTOR LAB - POINT OF C ARE ORDERABLES
--- OUTSIDE RECORDS SUMMARY | 2024-11-08 19:45 | XMS_ITS | Clinical Summary ---
Author Organization [facility] Address [address] [place] [address] Care Team Providers Care Specialty Plant Supervisor Name Role Phone Meir Fallon MD Primary Care Provider [phone] [phone] Allergies Active Allergy Reactions Criticality Noted Date [...] (07/14/2020): Added automatically from request for surgery [id number] Assessment & Plan (08/13/2020 11:15 AM CDT): [...] Department Care Team Description 09/28/2024 12:38 PM PUBLIC SAFETY TELECOMMUNICATOR - 09/28/2024 4:08 PM PUBLIC SAFETY TELECOMMUNICATOR Emergency [facility] Emergency Department [address] [place] [address] Orlando Nava MD Burnside, David W., MD [...] on file Legal Sex Female 4:31 PM PUBLIC SAFETY TELECOMMUNICATOR Gender Identity Not on file Sexual Orientation Not on file Obstetrics History Last Filed Vital Signs Vital Sign Reading Time Taken Comments Blood Pressure 113/68 09/28/2024 3:30 PM PUBLIC SAFETY TELECOMMUNICATOR Pulse 90 09/28/2024 3:30 PM PUBLIC SAFETY TELECOMMUNICATOR Temperature 37 ??C (98.6 ??F) 09/28/2024 3:11 PM PUBLIC SAFETY TELECOMMUNICATOR Respiratory Rate 16 09/28/2024 3:30 PM PUBLIC SAFETY TELECOMMUNICATOR Oxygen Saturation 100% 09/28/2024 3:30 PM PUBLIC SAFETY TELECOMMUNICATOR Inhaled Oxygen Concentration - - Weight 65.8 kg (145 lb) 09/28/2024 12:36 PM PUBLIC SAFETY TELECOMMUNICATOR Height 162.6 cm (5' 4 ) 09/28/2024 12:36 PM PUBLIC SAFETY TELECOMMUNICATOR Body Mass Index 24.89 09/28/2024 12:36 PM PUBLIC SAFETY TELECOMMUNICATOR Plan of Treatment Health Maintenance Due Date [...] PELVIS W CONTRAST ED 09/28/2024 2:38 PM PUBLIC SAFETY TELECOMMUNICATOR URINALYSIS, MICROSCOPIC ONLY STAT 09/28/2024 12:57 PM PUBLIC SAFETY TELECOMMUNICATOR DIFFERENTIAL AUTO STAT 09/28/2024 12: 57 PM PUBLIC SAFETY TELECOMMUNICATOR HCG, BLOOD, QUANTITATIVE STAT 09/28/2024 12:57 PM PUBLIC SAFETY TELECOMMUNICATOR CBC WITH AUTO DIFFERENTIAL STAT 09/28/2024 12:57 PM PUBLIC SAFETY TELECOMMUNICATOR URINALYSIS AND REFLEX TO MICROSCOPIC AND CULTURE STAT 09/28/2024 12:57 PM PUBLIC SAFETY TELECOMMUNICATOR from Last 3 Months Results * CT Abdomen Pelvis W Contrast (09/28/2024 2:38 PM PUBLIC SAFETY TELECOMMUNICATOR) Anatomical Region Laterality Modality Body N/A Computed Tomogra phy 09/28/2024 3:10 PM PUBLIC SAFETY TELECOMMUNICATOR Narrative 09/28/2024 3:35 PM PUBLIC SAFETY TELECOMMUNICATOR EXAM DESCRIPTION: ?? CT ABDOMEN PELVIS W [...] PM T: ??09/28/2024 3:35 PM Report ID: [id number] Reading Location: ??[id number] Procedure Note Meño Bone MD - 09/28/2024 [...] Meño Bone M.D. JA: VALERIE Report ID: [id number] Reading Location: [place] [address] Orlando Nava MD IMG CT PROCEDURES Final Resu lt * Differential, auto (09/28/2024 12:57 PM PUBLIC SAFETY TELECOMMUNICATOR) Neutrophil abs 3.0 1.5 - 6.5 K/cumm [...] 2018. Monocyte pct 6.4 % [facility] LUTHER ([place]) Comment: Interpretive Data Percent cell count reference [...] on 2018. Blood 09/28/2024 12:5 7 PM PUBLIC SAFETY TELECOMMUNICATOR 09/28/2024 1:01 PM PUBLIC SAFETY TELECOMMUNICATOR us Orlando Nava MD LAB BLOOD ORDERABLES Final R esult [facility] LUTHER ([place]) 1 [facility] Department [place] [address] * (ABNORMAL) Urinalysis reflex to microscopic and culture Urine (09/28/2024 12:57 PM PUBLIC SAFETY TELECOMMUNICATOR) Color, ur Yellow Yellow Clarity, ur Clear Clear SEBASTIEN Garza ([place]) Specific gravity, ur 1.025 1.003 - 1.030 [facility] LUTHER ([place]) pH, urine 6.5 [facility] LUTHER ([place]) Comment: Interpretive Data ? Urine pH is affected by diet, medications, systemic acid-base disturbances, and renal tubular function. ??pH may affect urinary stone formation. ??For example, urine pH below 6.0 may help reduce the tendency for calcium phosphate stones and pH greater than 6.0 may reduce the tendency for uric acid stone formation. Source: [facility] Current Interpretive Data was last revised on [...] [facility] ([facility]) Urine 09/28/2024 12:5 7 PM PUBLIC SAFETY TELECOMMUNICATOR 09/28/2024 1:01 PM PUBLIC SAFETY TELECOMMUNICATOR us Orlando Nava MD LAB MICROBIOLOGY - GENERAL O RDERABLES Final Result [facility] ([place]) 1 [facility] Department [place] [address] * CBC with auto differential (09/28/2024 12:57 PM PUBLIC SAFETY TELECOMMUNICATOR) WBC 5.9 3.8 - 9.9 K/cumm Hgb [...] [facility] ([facility]) Blood 09/28/2024 12:5 7 PM PUBLIC SAFETY TELECOMMUNICATOR 09/28/2024 1:01 PM PUBLIC SAFETY TELECOMMUNICATOR Orlando Nava MD LAB BLOOD ORDERABLES [facility] Performing Organization Address [facility] Co de Phone Number SEBASTIEN LUTHER ([place]) 1 [facility] [place] [address] * (ABNORMAL) Urinalysis, microscopic only (09/28/2024 12:57 PM PUBLIC SAFETY TELECOMMUNICATOR) WBC, ur 0-5 0 - 5 /HPF RBC, ur 11-20(A) 0 - 2 /HPF [facility] ([place]) Epithelial cells, squamous, ur 1-5 0 - 5 /HPF [facility] ([place]) Mucous, ur Present(A) [facility] Greg ([place]) Culture Reflex Comment Reflex conditions for urine culture (WBC >10) not met. [facility] ([place] Urine 09/28/2024 12:5 7 PM PUBLIC SAFETY TELECOMMUNICATOR 09/28/2024 1:01 PM PUBLIC SAFETY TELECOMMUNICATOR Orlando Nava MD LAB URINE ORDERABLES Final [facility] Performing Organization Address [facility] Co de Phone Number SE[facility]STIEN LUTHER ([place]) [address] [place] [address] * hCG, blood, quantitative (09/28/2024 12:57 PM PUBLIC SAFETY TELECOMMUNICATOR) hCG, quant <5.0 0.0 - 5.0 IUnits/L Comment: Interpretive Data Male: < 5 IU/L Non- premenopausal Female: <5 IU/L The Merary hCG Beta Quant assay procedure was used. Results from different manufacturers or methods may not be comparable. ??Serial testing should be performed using the same method. Interpretive Data was last revised on 2023 Blood 09/28/2024 12:5 7 PM PUBLIC SAFETY TELECOMMUNICATOR 09/28/2024 1:01 PM PUBLIC SAFETY TELECOMMUNICATOR Orlando Nava MD LAB BLOOD ORDERABLES Edited Result - Final [facility]) 1 [facility] Department [place] [address] from Last 3 Months Insurance [facility] H[facility]/PPO Address: [address] [address] [place] [address] [facility] [employer] [facility] [facility] H[facility]/PPO Address: [address] [address] [place] [address] [employer] [facility] H[facility]/PPO Address: [facility] [address] [place] [address] Care Teams Specialty Plant Supervisor Relationship Specialty Start Date End Date Meir Fallon MD PCP - General 07/10/20
--- OUTSIDE RECORDS SUMMARY | 2024-11-08 19:46 | XMS_ITS | Encounter Summary ---
Author Organization [facility] Healthcare Address [address] [place] [address] Care Team Providers Care Pleater Name Role Phone Meir Fallon MD Primary Care Provider [phone] Encounter Details Date Type Department Care Team (Late st Contact Info) Description 07/29/2020 9:48 AM CDT - 07/29/2020 11:08 AM CDT Surgery [facility] Operating Room [address] [place] [address] Robson Osullivan MD [address] [place] [address] EXCISION OF RIGHT GLUTEAL SUBCUTANEOUS MASS Surgery Details Date/Time Status Location OR Service Patient Class Case Cl ass Case Type Trauma Case? 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 * General Anesthesia (Discharge Care) ([place]in[place]) * Jake-Norman Drain Care (Discharge Care) ([place]) * Hydrocodone/Acetaminophen (By mouth) ([place]deinig) * Ondansetron (By mouth, Into the mouth) ([place]inig) * Laxative, Stool Softeners (By mouth) (Prydeinig) documented in this encounter Medications at Time [...] file Gets together: Not on file Attends denominational service: Not on file Active member of [...] OF : 1985 SURGEON: Robson Osullivan MD AUTOMOTIVE GENERAL SALES MANAGER:Garage Mechanic: Nida Terrazas RN Physician Sample Clerk: Sofia Maldonado NP Scrub: ST Chata DATE [...] not to pucker the skin. A 7 Kuwaiti flat DAREN drain was then placed and [...] on file. ?? Use no make-up, nail spanish, lotions, oils or powders on your skin. [...] results best viewed via link to PDF [facility] Department of Pathology [address] [place] [address] Final Report Patient Name: ??BARBARA FITZGERALD Address: ??[address] , ??[place], [place] ??[address] Gender: ??F : ??1985 (Age: 35) Service: ??Surgery Location: ??[facility] #: ??[id number] Patient Type: ??[facility] SDS Accession # [id number] Taken: ??07/29/2020 Received: ??07/29/2020 Accessioned: ??07/29/2020 Reported: [...] determined by the Surgical Pathology Department at [facility] as part of an ongoing quality checker program and in compliance with federally mandated [...] characteristics determined by the Surgical Pathology Department [facility]. ??It has not been cleared or approved by the U. S. Food and Drug Administration. Robson Osullivan MD LAB PATHOLOGY OR DERABLES Final Result PATHOLOGY [facility] 1 [place] [address] * eGFR (07/29/2020 8:22 AM CDT) eGFR 125 mL/min/1.7 3 m2 SEBASTIEN [facility] Comment: Interpretive Data Reference Interval Normal ?>/= 90 mL/min/1.73m2 Mildly decreased* ? 60 - 89 mL/min/1.73m2 Mildly to moderately decreased ?45 - 59 mL/min/1.73m2 Moderately to severely decreased ??30 - 44 mL/min/1.73m2 Severely decreased ?15 - 29 mL/min/1.73m2 Kidney Failure ?< 15 ??mL/min/1.73m2 *Relative to young adult level If -Georgian multiply value by 1.16. Estimated glomerular filtration [...] BLES Final Result [facility] ([place]) 1 [facility] Department [place] [address] * Differential, auto (07/29/2020 8:22 AM CDT) [...] BLES Final Result SEBASTI[facility] LUTHER ([place]) 1 [facility] Department [place] [address] * Antibody screen (07/29/2020 8:22 AM CDT) Celso, indirect, Gel Interpretation Negative ABSC [facility] ([place]) Blood specimen (specimen) 07/29/2020 8:22 AM CDT 07/29/2020 8:24 AM CDT Narrative [facility] ([place]) - 07/29/2020 9:03 AM CDT Has the patient had Daratumumab or Isatuximab in the past 6 months?->Unknown Robson Osullivan MD LAB BLOOD BANK T EST ORDERABLES Final Result Performing Organization Address City/[facility] Co de Phone Number [facility] ([place]) 1 [facility] [place] [address] * ABO/Rh (07/29/2020 8:22 AM CDT) ABO/Rh A Positive [facility] AM [facility] ([place]) Blood specimen (specimen) 07/29/2020 8:22 AM CDT 07/29/2020 8:24 AM CDT Narrative [facility] ([place]) - 07/29/2020 8:46 AM CDT Has the patient had Daratumumab or Isatuximab in the past 6 months?->Unknown Robson Osullivan MD LAB BLOOD BANK T EST ORDERABLES Final Result Performing Organization Address [facility] de Phone Number [facility] ([place]) 1 [facility] [place] [address] * CBC with auto differential (07/29/2020 8:22 [...] 83.7 81.3 - 96.4 fL [facility] ([place]) MCH 27.3 27.1 - 33.3 pg [facility] ([place]) MCHC 32.6 32.3 - 35.7 g/dL [facility] ([place]) RDW CV 12.7 11.1 - 14.9 % [facility] ([place]) RDW SD 38.8 35.7 - 48.1 fL [facility] ([facility] NRBC abs 0.00 0.00 - 0.01 K/cumm [facility] ([facility]) Blood specimen (specimen) 07/29/2020 8:22 AM CDT 07/29/2020 8:24 AM CDT us Robson Osullivan MD LAB BLOOD ORDERA BLES Final Result [facility] ([place]) 1 [facility] Department [place] [address] * (ABNORMAL) Basic metabolic panel (07/29/2020 8:22 AM CDT) Sodium 136 135 - 145 mmol/L [facility] ([facility]) Potassium, pl 4.0 3.3 - 4.9 mmol/L [facility] ([facility] Chloride 103 97 - 110 mmol/L [facility] ([facility] CO2 22 22 - 32 mmol/L [facility] ([facility]) Anion gap 11 2 - 15 mmol/L [facility] BUN 14 8 - 25 mg/dL [facility] ([facility] Creatinine 0.49(L) 0.60 - 1.10 mg/dL [facility] ([place]) Glucose 96 70 - 199 mg/dL [facility] ([facility]) Comment: Interpretive Data Fasting glucose [...] BLES Final Result [facility] ([place]) 1 [facility] Department [place] [address] * POCT hCG, urine (07/29/2020 8:13 AM [...] Pain 1114 (Given - Provid er: Barbara Daneils RN)1124 (Given - Provider: Barbara Daniels RN) [...] 07/08 documented in this encounter Care Teams Pleater Relationship Specialty Start Date End Date Meir Fallon MD PCP - General 07/10/20 documented as of this encounter
--- OUTSIDE RECORDS SUMMARY | 2024-11-08 19:46 | XMS_ITS | Encounter Summary ---
Author Organization [facility] Medical Group Address [address] [place] [address] Care Team Providers Care Skiing Instructor Name Role Phone Meir Fallon MD Primary Care Provider [phone] Encounter Details Date Type Department Care Team (Late st Contact Info) Description 05/25/2021 Telephone [facility] [place] [address] [place] [address] Kathleen Arreaga MA Social History Tobacco Use Types Packs/Day Years Used Date Smoking Tobacco: Former Cigarettes 0.5 10 0 11/13/2008 - 11/13/2018 Smokeless Tobacco: Never Alcohol Use Standard Drinks/Week Comments Yes 0 (1 standard drink = 0.6 oz pur e alcohol) Comments No Sex and Gender Information Value Date Recorded Sex Assigned at Not on file Legal Sex Female 4:31 PM HAULAGE BOSS Gender Identity Not on file Sexual Orientation [...] sent at 05/25/2021 8:12 AM CDT ----- [facility] Pool, please contact patient regarding negative covid [...] documented as of this encounter Care Teams Skiing Instructor Relationship Specialty Start Date End Date Meir Fallon MD PCP - General 07/10/20 documented as of this encounter
--- OUTSIDE RECORDS SUMMARY | 2024-11-08 19:46 | XMS_ITS | Encounter Summary ---
Author Organization [facility] Healthcare Address [address] [place] [address] Care Team Providers Care Foster Care Therapist Name Role Phone Meir Fallon MD Primary Care Provider [phone] Encounter Details Date Type Department Care Team (Latest Contact Info) Description 03/05/2024 7:38 AM CDT - 03/05/2024 11:59 PM CDT Hospital Encounter 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
--- OUTSIDE RECORDS SUMMARY | 2024-11-08 19:46 | XMS_ITS | Encounter Summary ---
Author Organization [facility] Healthcare Address [address] [place] [address] Care Team Providers Care Editor Dictionary Name Role Phone Unavailable Primary Care Provider [...] on file Legal Sex Female 4:31 PM PREFITTER Gender Identity Not on file Sexual Orientation Not on file documented as of this encounter Plan of Treatment Not on file documented as of this encounter Visit Diagnoses Not on filedocumented in this encounter
--- OUTSIDE RECORDS SUMMARY | 2024-11-08 19:46 | XMS_ITS | Encounter Summary ---
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
--- OUTSIDE RECORDS SUMMARY | 2024-11-08 19:46 | XMS_ITS | Encounter Summary ---
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
--- OUTSIDE RECORDS SUMMARY | 2024-11-08 19:46 | XMS_ITS | Encounter Summary ---
Author Organization [facility] Address [address] [place] [address] Care Team Providers Care Features Editor Name Role Phone Meir Fallon MD Primary Care Provider [phone] [phone] Encounter Details Date Type Department Care Team (Late st Contact Info) Description 07/14/2020 Orders Only [facility] [address] [facility] [address] [place] [address] Robson Osullivan MD [address] [place] [address] [address] [place] [address] Social History Tobacco Use Types Packs/Day Years Used Date Smoking Tobacco: Former Cigarettes 0.5 10 0 11/13/2008 - 11/13/2018 Alcohol Use Standard Drinks/Week Comments Yes 0 (1 standard drink = 0.6 oz pur e alcohol) Comments No Sex and Gender Information Value Date Recorded Sex Assigned at Not on file 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
--- OUTSIDE RECORDS SUMMARY | 2024-11-08 19:46 | XMS_ITS | Encounter Summary ---
Author Organization [facility] Address [address] [place] [address] Care Team Providers Care Supply Requirements Officer Name Role Phone Meir Fallon MD Primary Care Provider +1 [phone] Encounter Details Date Type Department Care Team (Late st Contact Info) Description 07/24/2020 Orders Only [facility] Testing Site - [address] [place] [address] Robson Osullivan MD [address] [place] [address] [facility] [address] [place] [address] Preop testing (Primary Dx) Social History Tobacco Use Types Packs/Day Years Used Date Smoking Tobacco: Former Cigarettes 0.5 10 0 11/13/2008 - 11/13/2018 Alcohol Use Standard Drinks/Week Comments Yes 0 (1 standard drink = 0.6 oz pur e alcohol) Comments No Sex and Gender Information Value Date Recorded Sex Assigned at Not on file Legal Sex Female 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 documented in this encounter Plan of Treatment Not on file documented as of this encounter Results * COVID-19 Coronavirus RNA Nasopharyngeal (07/27/2020 8:15 AM CDT) COVID-19 RNA Not Detected ARIS LUTHER (RAJ) Comment: Interpretive Data Testing performed at [facility]ious Disease [facility]. The 2019-Novel Coronavirus [...] last revised on 2020. Testing performed by: [facility], [address] [place] [address] Nasopharyngeal 07/27/2020 8: 15 AM CDT 07/27/2020 1:20 PM CDT Narrative SEBASTIEN LUTHER (RAJ) - 07/27/2020 7:24 PM CDT Is the patient experiencing any symptoms consistent with COVID (eg. Fever, cough, shortness of breath)?->No What is the reason for testing?->Screening prior to scheduled (>12 hr) surgery or procedure us Robson Osullivan MD LAB MICROBIOLOGY - GENERAL ORDERABLES Final Result SEBASTIEN HOMA (RAJ) 1 [facility] Department [place] [address] documented in this encounter Visit Diagnoses Diagnosis Preop testing- Primary Unspecified pre-operative examination Preop testing Unspecified pre-operative examination documented in this encounter Care Teams Supply Requirements Officer Relationship Specialty Start Date End Date Meir Fallon MD PCP - General 07/10/20 documented as of this encounter
--- OUTSIDE RECORDS SUMMARY | 2024-11-08 19:46 | XMS_ITS | Encounter Summary ---
Author Organization [facility] Healthcare Address [address] [place] [address] Care Team Providers Care Human Resources Specialist Name Role Phone Unavailable Primary Care Provider Unavailabl e Encounter Details Date Type Department Care Team (Late st Contact Info) Description 12/29/2009 12:46 PM ELECTRICAL ENGINEER - 12/29/2009 2:20 PM ELECTRICAL ENGINEER Hospital Encounter [facility] Edward Gonzales MD [address] [address] Sapna Robison MD [address] [place] [address] Chronic sinusitis; Simple chronic bronchitis (HCC); Tobacco use disorder Social History Tobacco Use Types Packs/Day Years Used Date Smoking Tobacco: Never Assessed Comments Unknown Sex and Gender Information Value Date Recorded Sex Assigned at Not on file Legal Sex Female 4:31 PM ELECTRICAL 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
--- OUTSIDE RECORDS SUMMARY | 2024-11-08 19:46 | XMS_ITS | Encounter Summary ---
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
--- OUTSIDE RECORDS SUMMARY | 2024-11-08 19:46 | XMS_ITS | Encounter Summary ---
Author Organization [facility] Healthcare Address [address] [place] [address] Care Team Providers Care Journeyman Pipe Welder Name Role Phone Meir Fallon MD Primary Care Provider [phone] [phone] Reason for Visit * Diagnostic Imaging (Routine) - Closed Specialty Diagnoses / Procedures Referred By Contac t Referred To Contact Diagnoses Right knee pain, unspecified chronicity Procedures XR Pelvis 1 or 2 Views Joe Vuong MD [address] [place] [address], [place] [address] Phone: tel: Referral ID Status Reason Start Date Expiration Date Visits Re quested Visits Authorized [id number] Closed 03/05/2024 04/04/2025 1 1 Encounter Details Date Type Department Care Team (Latest Contact Info) Description 03/05/2024 7:38 AM CDT - 03/05/2024 11:59 PM CDT Hospital Encounter [facility] Orthopedics and Sports Medicine [address] [place] [address] [address], [place] [address] Discharge Disposition: Discharge to home [...] on file 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
--- OUTSIDE RECORDS SUMMARY | 2024-11-08 19:46 | XMS_ITS | Encounter Summary ---
Author Organization [facility] Healthcare Address [address] [place] [address] Care Team Providers Care Family Medicine Physician Assistant Name Role Phone Unavailable Primary Care Provider Unavailabl e Encounter Details Date Type Department Care Team (Late st Contact Info) Description 04/20/2008 9:00 PM CDT - 04/20/2008 10:17 PM CDT Hospital Encounter [facility] Edward Phillips MD [address] [address] Sapna Robison MD [address] [place] [address] Social History Tobacco Use Types Packs/Day Years Used Date Smoking Tobacco: Never Assessed Comments Unknown Sex and Gender Information Value Date Recorded Sex Assigned at Not on file Legal Sex Female 4:31 PM TOLL OPERATOR Gender Identity Not on file Sexual Orientation Not on file documented as of this encounter Plan of Treatment Not on file documented as of this encounter Visit Diagnoses Not on filedocumented in this encounter
--- OUTSIDE RECORDS SUMMARY | 2024-11-08 19:46 | XMS_ITS | Encounter Summary ---
Author Organization [facility] Healthcare Address [address] [place] [address] Care Team Providers Care Cruise Director Name Role Phone Unavailable Primary Care Provider Unavailabl e Encounter Details Date Type Department Care Team (Late st Contact Info) Description 06/17/2010 12:05 PM CDT - 06/17/2010 11:59 PM CDT Hospital Encounter [facility] Duglas Menjivar MD [address] [place] [address] Cough Social History Tobacco Use Types Packs/Day Years Used Date Smoking Tobacco: Never Assessed Comments Unknown Sex and Gender Information Value Date Recorded Sex Assigned at Not on file 

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
--- OUTSIDE RECORDS SUMMARY | 2024-11-08 19:46 | XMS_ITS | Encounter Summary ---
Author Organization [facility] Healthcare Address [address] [place] [address] Care Team Providers Care Building Maintenance Worker Name Role Phone Meir Fallon MD Primary Care Provider +1 [phone] Encounter Details Date Type Department Care Team (Late st Contact Info) Description 07/27/2020 8:05 AM CDT Lab [address] [address] Robson Osullivan MD [address] [place] [id number] Preop testing Discharge Disposition: Discharge to home [...] on file Legal Sex Female 4:31 PM SPORT INTERN Gender Identity Not on file Sexual Orientation [...] COVID-19 RNA Not Detected [facility] ([facility]E) Comment: Interpretive Data Testing performed at [facility] Infectious Disease [facility]. The [...] revised on 2020. Testing performed by: [facility], [address] [place]., [address] Nasopharyngeal 07/27/2020 8: 15 AM CDT 07/27/2020 1:20 PM CDT Narrative SEBASTIEN LUTHER (RAJ) - 07/27/2020 7:24 PM CDT Is the patient experiencing any symptoms consistent with COVID (eg. Fever, cough, shortness of breath)?->No What is the reason for testing?->Screening prior to scheduled (>12 hr) surgery or procedure us Robson Osullivan MD LAB MICROBIOLOGY - GENERAL ORDERABLES Final Result SEBASTIEN LUTHER (RAJ) 1 [facility] Department of Laboratories [place], [place] [id number] documented in this encounter Visit Diagnoses Diagnosis Preop testing Unspecified pre-operative examination documented in this encounter Care Teams Building Maintenance Worker Relationship Specialty Start Date End Date Meir Fallon MD PCP - General 07/10/20 documented as of this encounter
--- OUTSIDE RECORDS SUMMARY | 2024-11-08 19:46 | XMS_ITS | Encounter Summary ---
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 Follow up with PCP if symptoms persist. documented in this encounter Plan of Treatment Not on file documented as of this encounter Visit Diagnoses Not on filedocumented in this encounter Care Teams Fish Hatchery Laborer Relationship Specialty Start Date End Date Meir Fallon MD PCP - General 07/10/20 documented as of this encounter
--- OUTSIDE RECORDS SUMMARY | 2024-11-08 19:46 | XMS_ITS | Encounter Summary ---
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 ??Testing performed at [facility] Molecular Infectious Disease Laboratory. ??The Inotec AMD Simplexa COVID-19 Direct assay is for in [...] reviewed December 10, 2020. Testing performed by: [facility], 1 [place]., [address] Employeed in healthcare? No SEBASTIEN Comment:Testing performed by : [facility], 1 [facility], [address] status? No SEBASTIEN Comment:Testing performed by : [facility], 1 [facility], [address] Group care resident? No SEBASTIEN Comment:Testing performed by : [facility], 1 [facility], [address] Hospitalized? No SEBASTIEN Comment:Testing performed by : [facility], 1 [facility], [address] Is patient in ICU? No SEBASTIEN Comment:Testing performed by : [facility], [address] [place] [address], [address] Symptomatic as defined by CDC? Yes SEBASTIEN Comment:Testing performed by : [facility], 1 [place]., [address] Nasopharyngeal 05/24/2021 4: 10 PM CDT 05/24/2021 11:04 PM CDT Narrative SEBASTIEN - 05/25/2021 7:50 AM CDT What is the reason for testing?->Symptoms of COVID-19 in low-risk group Date of Symptom Onset->05/18/21 Zulema Miranda NP LAB MICROBIOLOGY - GENERAL OR DERABLES Final Result SEBASTIEN [address] Department [place] [address] documented in this encounter Visit Diagnoses Diagnosis Upper respiratory tract infection, unspecified type documented in this encounter Additional Health Concerns Infection Onset Date Last Indicated Resolved Time COVID: Suspected 05/24/2021 05/24/2021 05/25/2021 7:51 AM CDT documented as of this encounter Care Teams Curb And Gutter Laborer Relationship Specialty Start Date End Date Meir Fallon MD PCP - General 07/10/20 documented as of this encounter
--- OUTSIDE RECORDS SUMMARY | 2024-11-08 19:46 | XMS_ITS | Encounter Summary ---
Author Organization 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 SEBASTIEN AREVALO Comment:Testing performed by : [facility], 1 [place]., [address] Throat 05/24/2021 4:10 PM CDT 05/24/2021 10:44 PM CDT Narrative SEBASTIEN AREVALO - 05/25/2021 8:32 PM CDT Testing performed by [facility] Microbiology Laboratory ([phone]). Zulema Miranda ASSURANCE ASSOCIATE LAB MICROBIOLOGY - GENERAL OR DERABLES Final Result SEBASTIEN [address] Department [place] [address] documented in this encounter Visit Diagnoses Diagnosis Upper respiratory tract infection, unspecified type documented in this encounter Additional Health Concerns Infection Onset Date Last Indicated Resolved Time COVID: Suspected 05/24/2021 05/24/2021 05/25/2021 7:51 AM CDT documented as of this encounter Care Teams Family Medicine Resident Relationship Specialty Start Date End Date Meir Fallon MD PCP - General 07/10/20 documented as of this encounter
--- OUTSIDE RECORDS SUMMARY | 2024-11-08 19:46 | XMS_ITS | Encounter Summary ---
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
--- OUTSIDE RECORDS SUMMARY | 2024-11-08 19:46 | XMS_ITS | Encounter Summary ---
Author Organization [facility] Medical Group Address [address] [facility] [address] [place] [address] Care Team Providers Care Content Administrator Name Role Phone Meir Fallon MD Primary Care Provider +1 [phone] Reason for Visit * Reason Comments COVID-19 [...] Description 05/24/2021 3:00 PM CDT Office Visit [facility] [place] [address] [place] [address] Zulema Miranda, MERVAT [address] [place] [address] Upper respiratory tract infection, unspecified type Social [...] on file Legal Sex Female 4:31 PM NUMERICAL 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 Nose: Nose normal. Mouth/Throat: Lips: [place]. Mouth: Mucous membranes are moist. Pharynx: Oropharynx [...] of pathogens. SEBASTIEN Comment:Testing performed by : [facility], 1 [place]., [address] Throat 05/24/2021 4:10 PM CDT 05/24/2021 10:44 PM CDT Narrative SEBASTIEN - 05/25/2021 8:32 PM CDT Testing performed by [facility] Microbiology Laboratory ([phone]). Zulema Miranda NP LAB MICROBIOLOGY - GENERAL OR DERABLES Final Result SEBASTIEN [address] Department [place] [address] * COVID-19 Coronavirus RNA Nasopharyngeal (05/24/2021 4:10 PM CDT) COVID-19 RNA Not Detected Not Detected SEBASTIEN Comment: Interpretive Data Synonyms for this test include: PCR and NAAT . ??Testing performed at [facility] Molecular Infectious Disease Laboratory. ??The LED Engin Simplexa COVID-19 Direct assay is for in [...] reviewed December 10, 2020. Testing performed by: [facility], 1 [place]., [address] Employeed in healthcare? No SEBASTIEN Comment:Testing performed by : [facility], 1 [place]., [address] status? No SEBASTIEN Comment:Testing performed by : [facility], [address] [place] [address], [place]., [address] Group care resident? No SEBASTIEN Comment:Testing performed by : [facility], 1 [place]., [address] Hospitalized? No SEBASTIEN Comment:Testing performed by : [facility], 1 [place]., [address] Is patient in ICU? No SEBASTIEN Comment:Testing performed by : [facility], 1 [place]., [address] Symptomatic as defined by CDC? Yes SEBASTIEN Comment:Testing performed by : [facility], 1 [place]., [address] Nasopharyngeal 05/24/2021 4: 10 PM CDT 05/24/2021 11:04 PM CDT Narrative SEBASTIEN - 05/25/2021 7:50 AM CDT What is the reason for testing?->Symptoms of COVID-19 in low-risk group Date of Symptom Onset->05/18/21 Zulema Miranda NP LAB MICROBIOLOGY - GENERAL OR DERABLES Final Result [facility] [address] Department [place] [address] * POCT rapid strep A (05/24/2021 3:21 PM CDT) [facility] Rapid Strep A, POC Negative Swab 05/24/2021 [...] documented as of this encounter Care Teams Content Administrator Relationship Specialty Start Date End Date Meir Fallon MD PCP - General 07/10/20 documented as of this encounter
--- OUTSIDE RECORDS SUMMARY | 2024-11-08 19:46 | XMS_ITS | Encounter Summary ---
Author Organization [facility] Medical Group Address [address] [facility] [address] [place] [address] Care Team Providers Care Industrial Service Technician Name Role Phone Meir Fallon MD Primary Care Provider +1 -[phone] Encounter Details Date Type Department Care Team (Late st Contact Info) Description 03/22/2021 Telephone [facility] [place] [address] [place] [address] Kathleen Arreaga MA Social History Tobacco Use Types Packs/Day Years Used Date Smoking Tobacco: Former Cigarettes 0.5 10 0 11/13/2008 - 11/13/2018 Alcohol Use Standard Drinks/Week Comments Yes 0 (1 standard drink = 0.6 oz pur e alcohol) Comments No Sex and Gender Information Value Date Recorded Sex Assigned at Not on file Legal Sex Female 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
--- OUTSIDE RECORDS SUMMARY | 2024-11-08 19:46 | XMS_ITS | Encounter Summary ---
Author Organization [facility] Medical Group Address [address] [facility] [address] [place] [address] Care Team Providers Care Signal Tower Operator Name Role Phone Meir Fallon MD Primary Care Provider +1 -[phone] Reason for Visit * Reason Comments Mass Right buttocks Encounter Details Date Type Department Care Team (Late st Contact Info) Description 07/14/2020 11:30 AM CDT Office Visit [facility] [address] [facility] [address] [place] [phone] Robson Osullivan MD [address] [place] [address] [address] [place] [address] Mass of right hip region (Primary Dx) Social History Tobacco Use Types Packs/Day Years Used Date Smoking Tobacco: Former Cigarettes 0.5 10 0 11/13/2008 - 11/13/2018 Alcohol Use Standard Drinks/Week Comments Yes 0 (1 standard drink = 0.6 oz pur e alcohol) Comments No Sex and Gender Information Value Date Recorded Sex Assigned at Not on file 

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
--- OUTSIDE RECORDS SUMMARY | 2024-11-08 19:46 | XMS_ITS | Encounter Summary ---
Author Organization [facility] Healthcare Address [address] [place] [address] Care Team Providers Care Marina Sales And Service Supervisor Name Role Phone Meir Fallon MD Primary Care Provider +1 [phone] Reason for Visit * Reason Comments Back Pain Encounter Details Date Type Department Care Team (Late st Contact Info) Description 07/10/2020 10:04 AM CDT - 07/10/2020 1:51 PM CDT Emergency [facility] Emergency Department 1 [place] [address] Orlando Nava MD [address] [place] [address] Hematoma (Primary Dx) Discharge Disposition: Discharge to home or self care Social History Tobacco Use Types Packs/Day Years Used Date Smoking Tobacco: Never Assessed Comments No Sex and Gender Information Value Date Recorded Sex Assigned at Not on file 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 * Hematoma (AfterCare(R) Instructions(ER/ED)) (Slovenian) documented in this encounter Medications at Time [...] ear normal. Nose: Nose normal. Mouth/Throat: Lips: [place]. Mouth: Mucous membranes are moist. Pharynx: No [...] Time: 07/10 1119 Comment: Voice recognition software ZUCHEM Direct was used to dictate and transcribe this document. Side Seam Tender variances may occur. Despite proofreading, typographical errors [...] signed by: Meir Soto M.D. Piotr Calzada SAFETY INSPECTOR IMG CT PROCEDURES Final Res ult * POCT hCG, urine (07/10/2020 11:49 AM CDT) HCG, ur, POC Negative Lot Number [id number] QC Backgroud Clear Acceptable QC Control Line Acceptable Urine 07/10/2020 11:4 9 AM CDT Piotr Calzada NP POINT OF CARE TEST ORDERABL ES Final Result * eGFR (07/10/2020 10:55 AM CDT) eGFR 132 mL/min/1.7 3 m2 SEBASTIEN [facility] (RAJ) Comment: Interpretive Data Reference Interval Normal ?>/= 90 mL/min/1.73m2 Mildly decreased* ? 60 - 89 mL/min/1.73m2 Mildly to moderately decreased ?45 - 59 mL/min/1.73m2 Moderately to severely decreased ??30 - 44 mL/min/1.73m2 Severely decreased ?15 - 29 mL/min/1.73m2 Kidney Failure ?< 15 ??mL/min/1.73m2 *Relative to young adult level If -[place] multiply value by 1.16. Estimated glomerular filtration [...] CDT 07/10/2020 11:11 AM CDT Piotrtoney Calzada SAFETY INSPECTOR LAB BLOOD ORDERABLES Final Result SEBASTIEN [facility] ([facility]) 1 [facility] [place] [address] * Differential, auto (07/10/2020 10:55 AM CDT) [...] Calzada NP LAB BLOOD ORDERABLES Final Result [facility] ([facility] 1 [facility] [place] [address] * (ABNORMAL) Comprehensive metabolic panel (07/10/2020 10:55 [...] CDT 07/10/2020 11:11 AM CDT Piotr Calzada SAFETY INSPECTOR LAB BLOOD ORDERABLES Final Result [facility] ([place]) 1 [facility] [place] [address] * CBC with auto differential (07/10/2020 10:55 [...] CDT 07/10/2020 11:11 AM CDT Piotr Calzada SAFETY INSPECTOR LAB BLOOD ORDERABLES Final Result [facility] ([facility]) 1 [facility] [place] [address] documented in this encounter Visit Diagnoses Diagnosis [...] Provid er: Analia Vaughn, RT - Comment: [id number]) documented in this encounter Orders Medications Ordered That Billy ht Not Have Been Administered Count Last Ordered Date First Ordered Date ioversoL (OPTIRAY 320) injection 100 mL 1 0 07/10/2020 IV Count Last Ordered Date First Orde red Date SALINE LOCK IV 1 07/10/2020 documented in this encounter Care Teams Marina Sales And Service Supervisor Relationship Specialty Start Date End Date Meir Fallon MD PCP - General 07/10/20 documented as of this encounter
--- OUTSIDE RECORDS SUMMARY | 2024-11-08 19:46 | XMS_ITS | Encounter Summary ---
Author Organization [facility] Medical Group Address [address] [facility] [address] [place] [address] Care Team Providers Care Mental Health Unit Lead Psychologist Name Role Phone Meir Fallon MD Primary Care Provider +1 -[phone] Encounter Details Date Type Department Care Team (Late st Contact Info) Description 07/14/2020 Orders Only [facility] [address] [facility] [address] [place] [phone] Chandni Sanchez LPN Social History Tobacco Use Types Packs/Day Years Used Date Smoking Tobacco: Former Cigarettes 0.5 10 0 11/13/2008 - 11/13/2018 Alcohol Use Standard Drinks/Week Comments Yes 0 (1 standard drink = 0.6 oz pur e alcohol) Comments No Sex and Gender Information Value Date Recorded Sex Assigned at Not on file Legal Sex Female 4: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
--- OUTSIDE RECORDS SUMMARY | 2024-11-08 19:46 | XMS_ITS | Encounter Summary ---
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
--- OUTSIDE RECORDS SUMMARY | 2024-11-08 19:46 | XMS_ITS | Encounter Summary ---
Author Organization [facility] Medical Group Address [address] [facility] [address] [place] [address] Care Team Providers Care Forestry Worker Name Role Phone Meir Fallon MD Primary Care Provider +1 -[phone] Encounter Details Date Type Department Care Team (Late st Contact Info) Description 07/14/2020 Orders Only [facility] [address] [facility] [address] [place] [phone] Chandni Sanchez LPN Pre-op testing (Primary Dx) Social History Tobacco Use Types Packs/Day Years Used Date Smoking Tobacco: Former Cigarettes 0.5 10 0 11/13/2008 - 11/13/2018 Alcohol Use Standard Drinks/Week Comments Yes 0 (1 standard drink = 0.6 oz pur e alcohol) Comments No Sex and Gender Information Value Date Recorded Sex Assigned at Not on file Legal Sex Female 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
--- OUTSIDE RECORDS SUMMARY | 2024-11-08 19:46 | XMS_ITS | Encounter Summary ---
Author Organization [facility] Healthcare Address [address] [place] [address] Care Team Providers Care Bench Chemist Name Role Phone Meir Fallon MD Primary Care Provider +1 -[phone] Encounter Details Date Type Department Care Team (Late st Contact Info) Description 07/29/2020 9:45 AM CDT Anesthesia Event [facility] Operating Room 1 [place] [address] Griselda Guerrero MD PhD 1 [place] [address] Anesthesia Record Procedure Summary Procedure Name Responsible [...] Right; Buttocks; 10/08/24 (Retired LDA, Removed/Completed by Adaptive Digital Power with LDA Utility); 1213 (Retired LDA, Removed/Completed by Adaptive Digital Power with LDA Utility) 07/29/20 1008 by Nida [...] on file Legal Sex Female 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 Informed Consent: Discussed plan with COUNTERINTELLIGENCE AGENT and attending. Anesthesia plan and risks discussed [...] r documented in this encounter Care Teams Bench Chemist Relationship Specialty Start Date End Date Meir Fallon MD PCP - General 07/10/20 documented as of this encounter
--- OUTSIDE RECORDS SUMMARY | 2024-11-08 19:46 | XMS_ITS | Encounter Summary ---
Author Organization [facility] Medical Group Address [address] [facility] [address] [place] [address] Care Team Providers Care Head Chopper Name Role Phone Meir Fallon MD Primary Care Provider +1 -[phone] Encounter Details Date Type Department Care Team (Late st Contact Info) Description 07/31/2020 Telephone [facility] [address] [facility] [address] [place] [address] Chandni Sanchez LPN Social History Tobacco Use Types Packs/Day Years Used Date Smoking Tobacco: Former Cigarettes 0.5 10 0 11/13/2008 - 11/13/2018 Alcohol Use Standard Drinks/Week Comments Yes 0 (1 standard drink = 0.6 oz pur e alcohol) Comments No Sex and Gender Information Value Date Recorded Sex Assigned at Not on file 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
--- OUTSIDE RECORDS SUMMARY | 2024-11-08 19:46 | XMS_ITS | Encounter Summary ---
Author Organization [facility] Medical Group Address [address] [facility] [address] [place] [address] Care Team Providers Care Valve Steamer Name Role Phone Meir Fallon MD Primary Care Provider +1 -[phone] Reason for Visit * Reason Comments Mass Gluteal 07/29/2020 Encounter Details Date Type Department Care Team (Late st Contact Info) Description 08/04/2020 9:25 AM CDT Office Visit [facility] 4 [facility] [address] [place] [phone] Robson Osullivan MD [address] [place] [address] [address] [place] [address] Mass of right hip region (Primary Dx) Social History Tobacco Use Types Packs/Day Years Used Date Smoking Tobacco: Former Cigarettes 0.5 10 0 11/13/2008 - 11/13/2018 Alcohol Use Standard Drinks/Week Comments Yes 0 (1 standard drink = 0.6 oz pur e alcohol) Comments No Sex and Gender Information Value Date Recorded Sex Assigned at Not on file Legal Sex Female 4:31 PM WHEEL WORKER Gender Identity Not on file Sexual [...] tablet added in this encounter Care Teams Valve Steamer Relationship Specialty Start Date End Date Meir Fallon MD PCP - General 07/10/20 documented as of this encounter
--- OUTSIDE RECORDS SUMMARY | 2024-11-08 19:46 | XMS_ITS | Encounter Summary ---
Author Organization [facility] Healthcare Address [address] [place] [address] Care Team Providers Care Securities Broker Name Role Phone Unavailable Primary Care Provider [...] on file Legal Sex Female 4:31 PM APPLIANCE SERVICER Gender Identity Not on file Sexual Orientation Not on file documented as of this encounter Plan of Treatment Not on file documented as of this encounter Visit Diagnoses Not on filedocumented in this encounter
--- OUTSIDE RECORDS SUMMARY | 2024-11-08 19:46 | XMS_ITS | Encounter Summary ---
Author Organization [facility] Address [address] [place] [address] Care Team Providers Care Telephone Supervisor Name Role Phone Meir Fallon MD Primary Care Provider [phone] Reason for Visit * Reason Comments Mass right hip 07/29/2020 Encounter Details Date Type Department Care Team (Late st Contact Info) Description 08/13/2020 10:55 AM CDT Office Visit [facility] [address] [place] [address] Robson Osullivan MD [address] [place] [address] [address] [place] [address] Mass of right hip region (Primary Dx) Social History Tobacco Use Types Packs/Day Years Used Date Smoking Tobacco: Former Cigarettes 0.5 10 0 11/13/2008 - 11/13/2018 Alcohol Use Standard Drinks/Week Comments Yes 0 (1 standard drink = 0.6 oz pur e alcohol) Comments No Sex and Gender Information Value Date Recorded Sex Assigned at Not on file Legal Sex Female 4:31 PM GLOVE OPERATOR Gender Identity Not on file Sexual [...] documented as of this encounter Care Teams Telephone Supervisor Relationship Specialty Start Date End Date Meir Fallon MD PCP - General 07/10/20 documented as of this encounter
--- OUTSIDE RECORDS SUMMARY | 2024-11-08 19:46 | XMS_ITS | Encounter Summary ---
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
--- OUTSIDE RECORDS SUMMARY | 2024-11-08 19:46 | XMS_ITS | Encounter Summary ---
Author Organization [facility] Healthcare Address [address] [place] [address] Care Team Providers Care Die Out Worker Name Role Phone Unavailable Primary Care [...] on file Legal Sex Female 4:31 PM SIGHT MOUNTER Gender Identity Not on file Sexual Orientation Not on file documented as of this encounter Plan of Treatment Not on file documented as of this encounter Visit Diagnoses Not on filedocumented in this encounter
--- OUTSIDE RECORDS SUMMARY | 2024-11-08 19:46 | XMS_ITS | Encounter Summary ---
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
--- OUTSIDE RECORDS SUMMARY | 2024-11-08 19:46 | XMS_ITS | Encounter Summary ---
Author Organization [facility] Healthcare Address [address] [place] [address] Care Team Providers Care Com Writer Name Role Phone Unavailable Primary Care Provider Unavailabl e Encounter Details Date Type Department Care Team (Late st Contact Info) Description 10/02/2016 4:27 PM TURBINATED BONE GRINDER - 10/02/2016 6:10 PM TURBINATED BONE GRINDER Hospital Encounter [facility] Wilfrid Ward MD [address] [place] [address] Bronchitis; Acute upper respiratory infection Social History Tobacco Use Types Packs/Day Years Used Date Smoking Tobacco: Never Assessed Comments Unknown Sex and Gender Information Value Date Recorded Sex Assigned at Not on file Legal Sex Female 4:31 PM TURBINATED BONE GRINDER Gender Identity Not on file Sexual Orientation Not on file documented as of this encounter Plan of Treatment Not on file documented as of this encounter Procedures Procedure Name Priority Date/Time Associated Diagnosis Comments XR CHEST PA LATERAL 2 VIEWS Routine 10/02/2016 4:54 PM TURBINATED BONE GRINDER documented in this encounter Results * XR Chest Pa Lateral 2 Vw (10/02/2016 4:54 PM TURBINATED BONE GRINDER) Anatomical Region Laterality Modality Body, Chest N/A Radiographic Lisa ging 10/02/2016 4:54 PM TURBINATED BONE GRINDER Narrative 10/05/2016 3:12 PM TURBINATED BONE GRINDER XR Chest 2 Views ?[id number] ??Acc#: ??[id number] DATE OF EXAM: ??Oct 02 2016 CLINICAL [...] Fax: ??-- Attending Fax: ??-- Attending ID: ??[id number] Requesting ID: ??[id number] Report To 1 ID: ??[id number] Report To 1 Name: ??WILFRID FERNANDES Report To 1 FAX: ??-- NextGen Order #: Procedure Note Provider, MD Mecca - 03/15/2017 XR Chest 2 Views [id number] Acc#: [id number] DATE OF EXAM: Oct 02 2016 CLINICAL [...] Fax: -- Attending Fax: -- Attending ID: [id number] Requesting ID: [id number] Report To 1 ID: [id number] Report To 1 Name: WILFRID FERNANDES Report To 1 FAX: -- NextGen Order #: Historical Provider MD DUPREE XR PROCEDURES Final R esult documented in this encounter Visit Diagnoses Diagnosis Bronchitis Bronchitis, not specified as acute or chronic Acute upper respiratory infection Acute upper respiratory infections of unspecified site documented in this encounter
--- OUTSIDE RECORDS SUMMARY | 2024-11-08 19:46 | XMS_ITS | Encounter Summary ---
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 * General Anesthesia (Discharge Care) (Fijian) * Jake-Norman Drain Care (Discharge Care) (Fijian) * Hydrocodone/Acetaminophen (By mouth) (Fijian) * Ondansetron (By mouth, Into the mouth) (Fijian) * Laxative, Stool Softeners (By mouth) (Fijian) documented in this encounter Medications at Time [...] file Gets together: Not on file Attends muslim service: Not on file Active member of [...] OF : 1985 SURGEON: Robson Osullivan MD HEAVY REPAIRER:Company Secretary: Nida Terrazas RN Physician Nozzle Cement Sprayer Helper: Sofia Maldonado NP Scrub: ST Chata DATE [...] not to pucker the skin. A 7 Citizen Of [place] flat DAREN drain was then placed and [...] that you and your doctor have chosen [facility] for your surgery. We hope that [...] on file. ?? Use no make-up, nail macedonian, lotions, oils or powders on your skin. [...] 07/29/2020 10:16 AM CDT Narrative PATHOLOGY [facility] ([facility]) - 08/03/2020 11:10 AM CDT EPIC results best viewed via link to PDF [facility] Department of Pathology [address] [place], [place] [id number] Final Report Patient Name: ??BARBARA FITZGERALD Address: ??[address] [place] [address], ??[place], [place] ??[address] Gender: ??F : ??1985 (Age: 35) Service: ??Surgery Location: ??[facility] Hospital #: ??[id number] Patient Type: ??[facility] SDS Accession # [id number] Taken: ??07/29/2020 Received: ??07/29/2020 Accessioned: ??07/29/2020 Reported: [...] determined by the Surgical Pathology Department at [facility] as part of an ongoing quality rn program and in compliance with federally mandated [...] characteristics determined by the Surgical Pathology Department [facility]. ??It has not been cleared or approved by the U. S. Food and Drug Administration. Robson Osullivan MD LAB PATHOLOGY OR DERABLES Final Result PATHOLOGY [facility] ([facility]) [address] [place] [address] * eGFR (07/29/2020 8:22 AM CDT) eGFR 125 mL/min/1.7 3 m2 SE[facility]STIEN [facility] ([facility]) Comment: Interpretive Data Reference Interval Normal ?>/= 90 mL/min/1.73m2 Mildly decreased* ? 60 - 89 mL/min/1.73m2 Mildly to moderately decreased ?45 - 59 mL/min/1.73m2 Moderately to severely decreased ??30 - 44 mL/min/1.73m2 Severely decreased ?15 - 29 mL/min/1.73m2 Kidney Failure ?< 15 ??mL/min/1.73m2 *Relative to young adult level If -Ugandan multiply value by 1.16. Estimated glomerular filtration [...] MD LAB BLOOD ORDERA BLES Final Result [facility] ([facility]) [address] [facility] Department [place] [address] * Differential, auto (07/29/2020 8:22 AM CDT) [...] BLES Final Result [facility] ([facility]) [address] [facility] Department [place] [address] * Antibody screen (07/29/2020 8:22 AM CDT) Celso, indirect, Gel Interpretation Negative ABSC [facility] ([facility]) Blood specimen (specimen) 07/29/2020 8:22 AM CDT 07/29/2020 8:24 AM CDT Narrative [facility] ([facility]) - 07/29/2020 9:03 AM CDT Has the patient had Daratumumab or Isatuximab in the past 6 months?->Unknown Robson Osullivan MD LAB BLOOD BANK T EST ORDERABLES Final Result Performing Organization Address [facility]/ZIP Co de Phone Number [facility] ([facility]) [address] [facility] [place] [address] * ABO/Rh (07/29/2020 8:22 AM CDT) Pathologist [facility] ABO/Rh A Positive [facility] ([facility]) Blood specimen (specimen) 07/29/2020 8:22 AM CDT 07/29/2020 8:24 AM CDT Narrative [facility] ([facility]) - 07/29/2020 8:46 AM CDT Has the patient had Daratumumab or Isatuximab in the past 6 months?->Unknown Robson Osullivan MD LAB BLOOD BANK T EST ORDERABLES Final Result Performing Organization Address [facility] Co de Phone Number [facility] 1 [facility] [place] [address] * CBC with auto differential (07/29/2020 8:22 AM CDT) Pathologist [facility] WBC 6.3 3.8 - 9.9 K/cumm [facility] ([facility]) Hgb 12.7 11.9 - 15.5 g/dL [facility] ([facility]) Hct 38.9 35.6 - 45.5 % [facility] ([facility]) Plt 292 150 - 400 K/cumm [facility] ([facility]) MPV 9.9 9.1 - 12.3 fL [facility] ([facility]) RBC 4.65 3.90 - 5.20 M/cumm [facility] ([facility]) MCV 83.7 81.3 - 96.4 fL [facility] ([facility]) MCH 27.3 27.1 - 33.3 pg [facility] ([facility]) MCHC 32.6 32.3 - 35.7 g/dL [facility] ([facility]) RDW CV 12.7 11.1 - 14.9 % [facility] ([facility]) RDW SD 38.8 35.7 - 48.1 fL [facility] ([facility]) NRBC abs 0.00 0.00 - 0.01 K/cumm [facility] ([facility]) Blood specimen (specimen) 07/29/2020 8:22 AM CDT 07/29/2020 8:24 AM CDT Robson Osullivan MD LAB BLOOD ORDERA BLES Final Result [facility] ([facility]) [address] [facility] Department [place] [address] * (ABNORMAL) Basic metabolic panel (07/29/2020 8:22 AM CDT) Sodium 136 135 - 145 mmol/L [facility] ([facility]) Potassium, pl 4.0 3.3 - 4.9 mmol/L [facility] ([facility]) Chloride 103 97 - 110 mmol/L [facility] ([facility]) CO2 22 22 - 32 mmol/L [facility] ([facility]) Anion gap 11 2 - 15 mmol/L [facility] ([facility]) BUN 14 8 - 25 mg/dL [facility] ([facility]) Creatinine 0.49(L) 0.60 - 1.10 mg/dL [facility] ([facility]) Glucose 96 70 - 199 mg/dL [facility] ([facility]) Comment: Interpretive Data Fasting glucose >/= [...] BLOOD ORDERA BLES Final Result [facility] ([facility]) [address] [facility] Department [place] [address] * POCT hCG, urine (07/29/2020 8:13 AM [...] Indications: Pain 1114 (Given - Provid er: Brabara Daniels RN)1124 (Given - Provider: Barbara Daniels [...] 07/08 documented in this encounter Care Teams Career Services Assistant Relationship Specialty Start Date End Date Meir Fallon MD PCP - General 07/10/20 documented as of this encounter
--- OUTSIDE RECORDS SUMMARY | 2024-11-08 19:46 | XMS_ITS | Encounter Summary ---
Author Organization [facility] Healthcare Address [address] [place] [address] Care Team Providers Care Electrical Engineering Intern Name Role Phone Unavailable Primary Care Provider [...] on file Legal Sex Female 4:31 PM MANAGER LAN Gender Identity Not on file Sexual Orientation Not on file documented as of this encounter Plan of Treatment Not on file documented as of this encounter Visit Diagnoses Not on filedocumented in this encounter
--- OUTSIDE RECORDS SUMMARY | 2024-11-08 19:47 | XMS_ITS | Encounter Summary ---
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 - 12/21/2006 10:15 PM HOUSE MOVING SUPERVISOR Hospital Encounter [facility] Wilfrid Ward MD [address] [facility] [address] [place] [address] Phil Green MD [address] [place] [address] Social History Tobacco Use Types Packs/Day Years Used Date Smoking Tobacco: Never Assessed Comments Unknown Sex and Gender Information Value Date Recorded Sex Assigned at Not on file Legal Sex Female 4:31 PM HOUSE 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
== END 2024-11-01 09:48 | disposition home or self-care (01) ==
PROVIDERS: Emergency Provider Nurse Practitioner Family; PCP Family Medicine
DX: J40 Bronchitis, not specified as acute or chronic (principal); Z87.891 Personal history of nicotine dependence; Z20.822 Contact with and (suspected) exposure to COVID-19
CPT/HCPCS: 71046; 87081; 87426; 87804; 87880; 99213; G0463

== ENCOUNTER 2025-03-05 08:15 | Outpatient (CLI) | payer OTHER, SELFPAY ==
--- NOTE | ~2025-03-05 | MM_ITS ---
EXAMINATION: MM screening dayna BI w khushbu HISTORY: Screening TECHNIQUE: Craniocaudal and mediolateral oblique 3-D tomosynthesis images were obtained and synthetic 2-D images were generated. CAD analysis was submitted and interpreted. COMPARISON: Comparison to multiple prior studies sequentially, with oldest reviewed study dated 03/04. BREAST PARENCHYMAL COMPOSITION: Dense: The breasts are heterogeneously dense, which may obscure small masses FINDINGS: There is no evidence of suspicious mass, calcification, or architectural distortion to sugg est malignancy in either breast. There has been no suspicious interval change. IMPRESSION: 1. No mammographic evidence of malignancy. 2. Recommend routine screening mammography in one year. BI-RADS Category 1: Negative Reviewed, dictated and finalized at location A.
--- OUTSIDE RECORDS SUMMARY | 2025-03-05 08:23 | XMS_ITS | Clinical Summary ---
Author Organization [facility] Address [address] [place] [address] Care Team Providers Care Medical Historian Name Role Phone Unavailable Primary Care Provider Unavailabl e Source Comments [facility],non-owned Affiliates and Associated Physician Practices is amultiple site organization consisting of ambulatory clinics and hospital sitesin [place], [place], [place] and [place]. This disclosure is being madepursuant to the Care Everywhere program and may not contain all information available regarding this patient. Last updated 18.[facility] Allergies Active Allergy Reactions Criticality Noted Date Comments Amoxicillin 09/23/2016 Medications * Be aware that medications may not be up to date on this document. Alwaysverify current medications with the patient. norgestimate-eth inyl estradiol (SPRINTEC 28) 0.25-35 MG-MCG tablet Take 1 Tab by mouth once daily Active albuterol HFA (PROVENTIL;WILLIAM DANIELLE;PROAIR) 108 (90 BASE) MCG/ACT inhalerIndicatio ns:Abnormal chest sounds Inhale 2 Puffs by mouth every 6 hours as needed 1 Inhaler 09/23/2016 Active benzonatate (TESSALON) 200 MG capsuleIndicatio ns:Abnormal chest sounds Take 1 Cap by mouth 3 times daily as needed for Cough 30 Cap 09/23/2016 Active Social History Tobacco Use Types Packs/Day Years Used Date Smoking Tobacco: Every Day Cigarettes Comments Unknown Sex and Gender Information Value Date Recorded Sex Assigned at Not on file Legal Sex Female 1:29 PM NEWSAGENT Gender Identity Not on file Sexual Orientation Not on file Last Filed Vital Signs Vital Sign Reading Time Taken Comments Blood Pressure 118/75 10/02/2016 3:32 PM NEWSAGENT Pulse 88 10/02/2016 3:32 PM NEWSAGENT Temperature 36.8 C (98.2 F) 10/02/2016 3:32 PM NEWSAGENT Respiratory Rate 16 10/02/2016 3:32 PM NEWSAGENT Oxygen Saturation - - Inhaled Oxygen Concentration - - Weight 61.2 kg (135 lb) 10/02/2016 3:32 PM NEWSAGENT Height 162.6 cm (5' 4 ) 10/02/2016 3:32 PM NEWSAGENT Body Mass Index 23.17 10/02/2016 3:32 PM NEWSAGENT Plan of Treatment Health Maintenance Due Date Last Done Comments LIPID TESTING 1985 MAMMOGRAM 1985 HIV SCREENING 02/10/1999 HEPATITIS C SCREENING 02/06/2002 DTAP/TDAP/TD VACCINES (1 - Tdap) 02/10/2003 HEPATITIS B VACCINE (1 of 3 - 19+ 3-dose series) 02/10/2003 COVID-19 VACCINE (1 - 2023-2 5 season) 2024 DEPRESSION SCREENING 11/06/2024 INFLUENZA VACCINE (Season Ended) 2025 ZOSTER VACCINE (1 of 2) 02/10/2034 HIB VACCINE Aged Out No longer eligi ble based on patient's age to complete this topic HPV VACCINE Aged Out No longer eligi ble based on patient's age to complete this topic MENINGOCOCCAL (Group B) VACC INE SHARED DECISION-MAKING Aged Out No longer eligibl e based on patient's age to complete this topic MENINGOCOCCAL GROUPS A/C/Y/W VACCINE Aged Out No longer eligible b ased on patient's age to complete this topic PNEUMOCOCCAL VACCINE Aged Out No long er eligible based on patient's age to complete this topic Insurance [facility] Address: [address] [place] [address]
== END 2025-03-05 08:16 | disposition home or self-care (01) ==
LOC: ANHIMG 08:17
PROVIDERS: PCP Family Medicine; Visit Provider Obstetrics & Gynecology Gynecology
DX: Z12.31 Encounter for screening mammogram for malignant neoplasm of breast (principal)
CPT/HCPCS: 77063; 77067

== ENCOUNTER 2025-04-06 09:59 | Emergency (ER) | payer OTHER, SELFPAY ==
--- OUTSIDE RECORDS SUMMARY | 2025-04-06 10:02 | XMS_ITS | Clinical Summary ---
Author Organization [facility] Address [address] [place] [address] Care Team Providers Care Ortho Assistant Name Role Phone Meir Fallon MD Primary Care Provider [phone] Allergies Active Allergy Reactions Criticality Noted Date [...] (07/14/2020): Added automatically from request for surgery [id number] Assessment & Plan (08/13/2020 11:15 AM CDT): [...] the bottom up. She is in understanding. 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 Gender Identity Not on file Sexual Orientation Not on file Obstetrics History Last Filed Vital Signs Vital Sign Reading Time Taken Comments Blood Pressure 113/68 09/28/2024 3:30 PM VICE PRESIDENT TALENT MANAGEMENT Pulse 90 09/28/2024 3:30 PM VICE PRESIDENT TALENT MANAGEMENT Temperature 37 C (98.6 F) 09/28/2024 3:11 PM VICE PRESIDENT TALENT MANAGEMENT Respiratory Rate 16 09/28/2024 3:30 PM VICE PRESIDENT TALENT MANAGEMENT Oxygen Saturation 100% 09/28/2024 3:30 PM VICE PRESIDENT TALENT MANAGEMENT Inhaled Oxygen Concentration - - Weight 65.8 kg (145 lb) 09/28/2024 12:36 PM VICE PRESIDENT TALENT MANAGEMENT Height 162.6 cm (5' 4) 09/28/2024 12:36 PM VICE PRESIDENT TALENT MANAGEMENT Body Mass Index 24.89 09/28/2024 12:36 PM VICE PRESIDENT TALENT MANAGEMENT Plan of Treatment Health Maintenance Due Date Last Done Comments Breast Cancer Screening-Mammogram 1985 Cervical Cancer Screening 1985 Depression Screening 1985 Hepatitis C Screening 1985 DTaP/Tdap/Td Vaccine (1 - Tdap) 02/10/1995 Varicella Vaccines (1 of 2 - 13+ 2-dose series) 02/10/1997 Hepatitis B Screening 02/10/2002 Regular Well Visit/Exam 18-64 02/10/2002 Influenza Vaccine (Season Ended) 2025 HPV Vaccines Aged Out No longer eligi ble based on patient's age to complete this topic Pneumococcal vaccine <65 Aged Out No longer eligible based on patient's age to complete this topic Insurance [facility] Address: [facility] [id number] [place] [phone] [facility] CHOICE PLUS [facility] HMO/PPO Address: [facility] [address] [place] [address] [place] [phone] [facility] Address: [facility] [address] [place] [address] Care Teams Ortho Assistant Relationship Specialty Start Date End Date Meir Fallon MD PCP - General 07/10/20
--- OUTSIDE RECORDS SUMMARY | 2025-04-06 10:02 | XMS_ITS | Clinical Summary ---
Author Organization [facility] Address [address] [place] [address] Care Team Providers Care Embedded Systems Engineer Name Role Phone Unavailable Primary Care Provider Unavailabl e Source Comments [facility],non-owned Affiliates and Associated Physician Practices is amultiple site organization consisting of ambulatory clinics and hospital sitesin [place], [place], [place] and [place]. This disclosure is being madepursuant to the Care Everywhere program and may not contain all information available regarding this patient. Last updated 18.[facility] Allergies Active Allergy Reactions Criticality Noted Date [...] on file Legal Sex Female 1:29 PM MATTRESS AND FOUNDATION SEWER Gender Identity Not on file Sexual Orientation Not on file Last Filed Vital Signs Vital Sign Reading Time Taken Comments Blood Pressure 118/75 10/02/2016 3:32 PM MATTRESS AND FOUNDATION SEWER Pulse 88 10/02/2016 3:32 PM MATTRESS AND FOUNDATION SEWER Temperature 36.8 C (98.2 F) 10/02/2016 3:32 PM MATTRESS AND FOUNDATION SEWER Respiratory Rate 16 10/02/2016 3:32 PM MATTRESS AND FOUNDATION SEWER Oxygen Saturation - - Inhaled Oxygen Concentration - - Weight 61.2 kg (135 lb) 10/02/2016 3:32 PM MATTRESS AND FOUNDATION SEWER Height 162.6 cm (5' 4) 10/02/2016 3:32 PM MATTRESS AND FOUNDATION SEWER Body Mass Index 23.17 10/02/2016 3:32 PM MATTRESS AND FOUNDATION SEWER Plan of Treatment Health Maintenance Due Date [...] patient's age to complete this topic Insurance [facility]
--- OUTSIDE RECORDS SUMMARY | 2025-04-06 10:02 | XMS_ITS | Referral Summary ---
Author Organization [facility] Address [address] [place] [address] Care Team Providers Care T[employer]ley [employer] Mechanic Name Role Phone Meir Fallon MD Primary Care Provider [phone] Allergies Active Allergy Reactions Criticality Noted Date [...] (07/14/2020): Added automatically from request for surgery [id number] Assessment & Plan (08/13/2020 11:15 AM CDT): [...] on file Legal Sex Female 4:31 PM MEDICAL COLLECTIONS REPRESENTATIVE Gender Identity Not on file Sexual Orientation Not on file Last Filed Vital Signs Vital Sign Reading Time Taken Comments Blood Pressure 113/68 09/28/2024 3:30 PM MEDICAL COLLECTIONS REPRESENTATIVE Pulse 90 09/28/2024 3:30 PM MEDICAL COLLECTIONS REPRESENTATIVE Temperature 37 C (98.6 F) 09/28/2024 3:11 PM MEDICAL COLLECTIONS REPRESENTATIVE Respiratory Rate 16 09/28/2024 3:30 PM MEDICAL COLLECTIONS REPRESENTATIVE Oxygen Saturation 100% 09/28/2024 3:30 PM MEDICAL COLLECTIONS REPRESENTATIVE Inhaled Oxygen Concentration - - Weight 65.8 kg (145 lb) 09/28/2024 12:36 PM MEDICAL COLLECTIONS REPRESENTATIVE Height 162.6 cm (5' 4) 09/28/2024 12:36 PM MEDICAL COLLECTIONS REPRESENTATIVE Body Mass Index 24.89 09/28/2024 12:36 PM MEDICAL COLLECTIONS REPRESENTATIVE Plan of Treatment Not on file Insurance [facility] Address: [address] [address] [facility] [employer] [facility] Address: [address] [address] [place] [address] [facility] Address: [address] [address] [place] [address] Care Teams Trolley Car Mechanic Relationship Specialty Start Date End Date Meir Fallon MD PCP - General 07/10/20
[2025-04-06 10:10] VITALS: BP 116/68; PULSE 87; RESP 16; TEMP 36.6; O2SAT 99
--- NOTE | 2025-04-06 10:20 | ED.GENADULT ---
HPI - General Adult General Chief complaint: Upper Respiratory Infection Stated complaint: headache for a week Time Seen by Provider: 04/06/25 10:22 Source: patient, RN notes reviewed and old records reviewed Mode of arrival: ambulatory Limitations: no limitations History of Present Illness HPI narrative: 40 year old female who presents to [facility] care with complaints of 9 day history frontal headache, sinus pressure, drainage,sinus congestion with no known fevers. Patient reports that she has been ttaking Ibuprofen, Cary, Tylenol, Mucinex, and also Flonase for her symptoms without resolution. MD complaint: sinus pressure ,drainage, congestion with frontal headache pain Onset (ago): day(s) (9 days) Location: head (frontal) and face (sinus area) Severity scale (1-10): 8 Quality: aching and other (pressure) Treatments prior to arrival: NSAID and other (Tylenol, Cary, Flonase and Mucinex) Related Data Home Medications ?Medication ?Instructions ?Recorded ?Confirmed ?Last Taken ?Type drospirenone (contraceptive) 4 mg 1 tablet PO DAILY 11/07/24 11/07/24 Unknown History (28) tablet (Slynd) Allergies Allergy/AdvReac Type Severity Reaction Status Date / Time meperidine Allergy Mild vomit Verified 11/07/24 13:11 erythromycin base Allergy Unknown unknown Verified 11/07/24 13:11 vilazodone AdvReac Intermediate Agitated Verified 11/07/24 13:11 venlafaxine (From Effexor) AdvReac Mild insomnia Verified 11/07/24 13:11 Review of Systems Review of Systems: CONSTITUTIONAL: Reports malaise, chills, sweats, or fever. EYES: Denies visual changes, redness, or discharge. ENT: Reports rhinorrhea, congestion, sinus pain,no otalgia and no sore throat. CARDIOVASCULAR: Denies chest pain, palpitations, or edema. RESPIRATORY: Reports no acute cough.? Denies dyspnea. GASTROINTESTINAL: Denies abdominal pain, nausea, vomiting, diarrhea SKIN: Denies rash or itching. MUSCULOSKELETAL: Denies myalgia. NEUROLOGIC: Reports frontal headache. All systems reviewed & are unremarkable except as noted in HPI and below PMFSH Past Medical History Medical History GERD (gastroesophageal reflux disease) Obesity (BMI 30.0-34.9) Family history of heart disease in female family member before age 65 Renal cyst Left Myositis ossificans Rib injury COVID-19 Hematoma (~07/2020) Surgical History Surgical History History of colposcopy Colposcopy - TRUPTI II/III 2008 History of loop electrosurgical excision procedure (LEEP) 2008 Family History Family History Mother Acute myocardial infarction Other Heart disease Atrial fibrillation Depression Psychiatric problem Grandparent Diabetes mellitus Cerebrovascular accident Alzheimer disease Breast cancer Social History Social History Social History: Caffeine-daily Smoking status: Former smoker Smoking end date: 11/06/17 Alcohol intake: current Alcohol use details: rarely Substance use: never Substance use type: does not use Lack of Transportation: No Lack of Food: Never True Current Housing: I Have Housing Concerned About Future Housing: No Difficulty Paying Gas/Electric Bills: No Difficulty Paying for Meds: No Currently Unemployed: No Education: Associate Degree Difficulty w/ Childcare or Family Care: No Living arrangements: with family Occupation/Education: occupation Gender identity (if verbalized by the patient): Female Sexual Orientation (if Verbalized by the Patient): Straight or Heterosexual Comments At time of signature, agree with nursing past medical, surgical, social and family history. There is no relevant family history pertinent to the presenting complaint Exam Narrative: GENERAL: Well-appearing, well-nourished, and in no acute distress. HEAD: Normocephalic EYES: PERRLA, conjunctivae clear ENT: Nares red, turbinates edematous and erythematous, clear discharge, sinus pressure and frontal headache. Mucous membranes moist. TM pearly costello with dull light reflex bilaterally; no tragal tenderness. Oropharynx erythematous without lesions. Tonsils not enlarged and without exudate, no drooling, no hoarseness, no trismus, uvula midline.post nasal drainage noted. NECK: Supple. No lymphadenopathy CHEST: Clear to auscultation, breath sounds equal. No wheezing, rhonchi, rales, or stridor. No respiratory distress, speaks in full sentences.SAO2 99% on room air NEURO: Alert and oriented x3. PSYCH: Normal mood and affect Course Course Emergency Course: Patient is aware of diagnosis, understands and agrees to treatment plan.? Anticipatory guidance given.? Patient agrees to follow-up as directed and is aware of reasons to seek care at the emergency department. Portions of this record may have been created with voice recognition software Level of Care: Express Care Visit Vital Signs Vital signs: Vital Signs Temperature 36.6 C 04/06/25 10:10 Pulse Rate 87 04/06/25 10:10 Respiratory Rate 16 04/06/25 10:10 Blood Pressure 116/68 04/06/25 10:10 Pulse Oximetry 99 04/06/25 10:10 Oxygen Delivery Room Air 04/06/25 10:10 Temperature 36.6 C 04/06/25 10:10 Pulse Rate 87 04/06/25 10:10 Respiratory Rate 16 04/06/25 10:10 Blood Pressure 116/68 04/06/25 10:10 Pulse Oximetry 99 04/06/25 10:10 Oxygen Delivery Room Air 04/06/25 10:10 Reviewed Medical Decision Making Differential Diagnosis Differential Diagnosis: URI, headache, sinusitis, viral infection, rhinitis Medical Records Medical records reviewed: Yes I reviewed the external patient's medical records. Vital Signs Vital Signs: Vital Signs Temperature 36.6 C 04/06/25 10:10 Pulse Rate 87 04/06/25 10:10 Respiratory Rate 16 04/06/25 10:10 Blood Pressure 116/68 04/06/25 10:10 Pulse Oximetry 99 04/06/25 10:10 Oxygen Delivery Room Air 04/06/25 10:10 Temperature 36.6 C 04/06/25 10:10 Pulse Rate 87 04/06/25 10:10 Respiratory Rate 16 04/06/25 10:10 Blood Pressure 116/68 04/06/25 10:10 Pulse Oximetry 99 04/06/25 10:10 Oxygen Delivery Room Air 04/06/25 10:10 reviewed Critical Care Time Critical Care Time Critical Care Time: No Discharge Plan Discharge Clinical Impression: Sinusitis Qualifiers: Sinusitis location: pansinusitis Chronicity: acute Recurrence: not specified as recurrent Qualified Code(s): J01.40 - Acute pansinusitis, unspecified Patient Disposition: Home Condition: Stable Instructions: Antibiotic Form, Sinusitis (ED) Additional Instructions: Increase fluids especially juices and water [id number] cough and cold medicine of your choice for your symptoms Zyrtec, Claritin or Cary daily include plain Sudafed in am heat to the face 20-30 minutes 4-6 times a day for pain Salt water gargles, throat lozenges or throat sprays as desired Antibiotic as directed--finished the medication If your symptoms persist, change or worsen significantly before you can contact your personal physician then please, without delay, go to the emergency department for further evaluation. Follow-up with PCP in 7-10 days or sooner if needed Written prescription for Augmentin given to be filled at patient's own pharmacy Patient Language: Welsh Prescriptions: No Action Slynd 4 mg (28) tablet 1 tablet PO DAILY Follow-up/Referrals: Meir Fallon MD [Primary Care Provider] - Time of Disposition: 11:07
== END 2025-04-06 11:19 | disposition home or self-care (01) ==
PROVIDERS: Emergency Provider Registered Nurse; PCP Family Medicine
DX: J01.40 Acute pansinusitis, unspecified (principal); Z87.891 Personal history of nicotine dependence; K21.9 Gastro-esophageal reflux disease without esophagitis; E66.9 Obesity, unspecified; Z86.16 Personal history of COVID-19
CPT/HCPCS: 99211; G0463